=== PATIENT | female | born 1955 | race Caucasian/White ===

== ENCOUNTER 2016-04-01 09:53 | Inpatient (IN) | payer OTHER, MEDICAID ==
[~2016-04-01] VITALS: Ht 170.2 cm; Wt 126.0 kg
[~2016-04-01 09:53] MED LIST: ALBU2.5V3 NEB; ALBU8.5H3 INH; AMLO5TAB4 PO; ASPI-650 PO; ATOR20TA38 PO; BECL8.7A5 INH; BENA40TA41 PO; FENO160T9 PO; FLUT50DI INH; HYDR-3498 PO; HYDR25TA6 PO; HYDR26CR PR; INSU100C SC; INSU100I15 SC; LEVO750T25 PO; METF-388 PO; OMEP20CA9 PO; PARO-37 PO; RTATR NEB
[2016-04-01 10:05] VITALS: Ht 170.2 cm; Wt 126.0 kg
[2016-04-01] MEDS ORDERED: ONDANSETRON 4 MG INJ IV STA (10:24)
[2016-04-01] MEDS ORDERED: HYDROmorphONE 1 MG/ML SYG IV STA ×2 (10:24→12:13)
[2016-04-01] MEDS ORDERED: SOD CHLORIDE 0.9% 500 ML IV STA (10:24)
[2016-04-01 10:48] LABS: BASOPHILS % 0.3 % (0.0-2.0); EOSINOPHILS # 0.6 10^3/ul (0.0-0.5); EOSINOPHILS % 5.1 % (0.0-7.0); HEMATOCRIT 39.3 % (37.0-47.0); HEMOGLOBIN 12.8 g/dl (12.0-16.0); LYMPHOCYTES # 2.6 10^3/ul (0.8-2.9); LYMPHOCYTES % 21.9 % (15.0-51.0); MEAN CORPUSCULAR HGB CONC 32.7 g/dl (32.0-37.0); MEAN CORPUSCULAR VOLUME 82.6 fl (82.0-101.0); MEAN PLATELET VOLUME 7.5 fl (7.4-10.4); MONOCYTE # 0.6 10^3/ul (0.3-0.9); MONOCYTES % 4.9 % (0.0-11.0); NEUTROPHILS % 67.8 % (39.0-77.0); PLATELET COUNT 363 10^3/UL (140-440); RED BLOOD COUNT 4.75 10^6/ul (4.20-5.40); UNCORRECTED WBC 11.9 10^3/ul (4.8-10.8); WHITE BLOOD COUNT 11.9 10^3/ul (4.8-10.8)
[2016-04-01 10:56] LABS: ALBUMIN 4.3 g/dl (3.3-4.9)
[2016-04-01 10:57] LABS: POTASSIUM 4.6 mmol/L (3.5-5.1)
[2016-04-01 10:59] LABS: ALBUMIN/GLOBULIN RATIO 1.43; BILIRUBIN,INDIRECT 0.1 mg/dl (0-1.1); BILIRUBIN,TOTAL 0.1 mg/dl (0.2-1.3); CREATININE 0.85 mg/dl (0.44-1.00); TOTAL PROTEIN 7.3 g/dl (6.1-8.1)
[2016-04-01 11:00] LABS: CONDITION 1; LH ANALYZER COMMENTS 1
--- NOTE | 2016-04-01 11:15 | RADRPT ---
PROCEDURE: US Abdomen (right upper quadrant). CLINICAL INDICATION: Right upper quadrant pain. TECHNIQUE: Multiple real-time longitudinal and transverse images of the right upper quadrant of th e abdomen were acquired utilizing a curved array transducer. Images were reviewed on a high-resoluti on PACS workstation. COMPARISON: Correlation with CT from 05/22/2015. FINDINGS: The liver is normal in size and demonstrates diffusely increased echogenicity without focal mass or intrahepatic biliary dilatation. Small stones are present within the gallbladder. There is suggest ion of trace pericholecystic fluid. Focal thickening of the gallbladder wall with associated comet- tail artifact is consistent with adenomyomatosis. Questionable small gallbladder polyps are also pr esent. The cigar head stringer reports a positive sonographic Wells's sign. No intra or extrahepatic bili kiran dilatation is seen. The common bile duct measures 3.9 mm in maximal dimension. The pancreatic duct appears mildly prominent measuring 4 mm at the pancreatic body. No free fluid is identified. The right kidney measures 14.0 cm in length. There is normal echogenicity within the right kidney. There is no perinephric fluid collection. No hydronephrosis, mass, or calculus is seen. IMPRESSION: 1. Cholelithiasis with suggestion of pericholecystic fluid and reportedly positive sonographic Murp hy's sign. The findings may represent acute calculus cholecystitis in the correct clinical setting. If there is further concern, consider HIDA scan. 2. Nondependent echogenic foci within the gallbladder wall which may represent gallbladder polyp. 3. Focal gallbladder wall thickening with associated comet-tail artifact, consistent with adenomyom atosis. 4. Increased hepatic echogenicity, suggesting steatosis. 5. Mildly prominent pancreatic duct may be secondary to atrophy although obstruction cannot be ruled out. If there is further concern, consider MRCP. RPTAT: QQ .Carrillo Carmona MD, Date Time Electronically viewed and signed by .Carrillo Carmona MD, MD on 04/01/2016 11:14 .A/
--- NOTE | 2016-04-01 11:25 | ERA ---
ER Documentation Chief Complaint Date/Time DATE: 04/01/16 TIME: 1021 Chief Complaint AP X 5 days, SOB-COPD HPI 61-year-old female presents the emergency department complaining of epigastric abdominal pain 5 days. Patient states that she has had an epigastric and right upper quadrant abdominal pain for the last 5 days. She states the pain is acute in onset and non-provoked. It associated with nausea but no vomiting or diarrhea or urinary or gynecologic symptoms. She describes the pain is moderate to severe and is getting worse over the last few days. ROS All systems reviewed and are negative except as per history of present illness. Medications Home Meds Active Scripts Hydrocortisone* Rectal (Preparation H* Cream) 1% - 26 Gm Cream.gm., 1 APPLIC FL BID for 10 Days, TUB Prov:EVELINA MARTINES 05/22/15 Ipratropium [place]* (Atrovent*) 0.5 Mg/2.5 Ml Nebu, 0.5 MG NEB Q4H RESP THERAPY Y for SHORTNESS OF BREATH, #90 3 Refills Prov:EVELINA MARTINES 05/22/15 Levofloxacin* (Levaquin*) 750 Mg Tablet, 750 MG PO DAILY@06 for 5 Days, TAB Prov:EVELINA MARTINES 05/22/15 Hydrocodone Bit/Acetaminophen (Anexsia 5-325 Mg Tablet) 1 Tab Tab, 1 TAB PO Q6H Y for MODERATE PAIN LEVEL 4-6, #30 TAB Prov:EVELINA MARTINES 05/22/15 Reported Medications Beclomethasone Dip* (Qvar 80*) 7.3 Gm Inha, 2 PUFF INH BID, #1 INHALER 05/20/15 Fenofibrate, Micronized* (Lofibra*) 160 Mg Tablet, 160 MG PO DAILY, TAB 05/20/15 Insulin Lispro (Humalog) 100 U/Ml Cartridge, 16 UNITS SC WITH MEALS, EA 05/20/15 Insulin Glargine,Hum.rec.anlog (Lantus Solostar) 100 Units/Ml Pen, 30 UNITS SC BID 12/29/13 Omeprazole* (Prilosec*) 20 Mg Capsule.dr, 20 MG PO DAILY, CAP 12/29/13 Albuterol Sulfate* (Albuterol Sulfate* Neb) 0.083%-3 Ml Neb, 1 VIAL NEB Q4H, EA 12/29/13 Atorvastatin Calcium* (Atorvastatin Calcium*) 20 Mg Tablet, 20 MG PO HS, TAB 12/29/13 Albuterol Sulfate* (Proair HFA*) 8.5 Gm Hfa.aer.ad, 2 PUFF INH Q4-6HOURS, INH 12/29/13 Metformin Hcl* (Metformin Hcl*) 1,000 Mg Tablet, 1000 MG PO BID, TAB 12/29/13 Aspirin (Aspirin) 81 Mg Tablet, 81 MG PO DAILY 09/14/11 Amlodipine Besylate* (Norvasc*) 5 Mg Tablet, 5 MG PO DAILY 09/14/11 Benazepril Hcl* (Benazepril Hcl*) 40 Mg Tablet, 40 MG PO DAILY 09/14/11 Hydrochlorothiazide (Hydrochlorothiazide) 25 Mg Tablet, 25 MG PO DAILY 09/14/11 Paroxetine Hcl* (Paroxetine*) 20 Mg Tablet, 20 MG PO DAILY 09/14/11 Fluticasone Propionate (Flovent Diskus) 50 Mcg/Disk W/Dev Disk.w.dev, 2 SPRAY INH DAILY 09/14/11 Allergies Allergies: Coded Allergies: No Known Allergies (Verified Allergy, Unknown, 05/20/15) latex (Verified Adverse Reaction, Severe, HIVES, 05/20/15) PMhx/Soc Anesthesia Reaction: No Hx Neurological Disorder: No Hx Respiratory Disorders: Yes (COPD, JAN with CPAP) Hx Cardiac Disorders: Yes (htn ) Hx Psychiatric Problems: No Hx Miscellaneous Medical Probl: No Hx Alcohol Use: No Hx Substance Use: No Hx Tobacco Use: Yes Smoking Status: Current every day smoker FmHx Noncontributory for chief complaint Physical Exam Vitals Vital Signs Date Time Temp Pulse Resp B/P Pulse Ox O2 Delivery O2 Flow Rate FiO2 04/01/16 10:05 98.7 90 20 146/66 93 Physical Exam GENERAL: The patient is well developed and appropriate for usual state of health in no apparent distress HEENT: Pupils equal, round, and reactive to light. EOMI. There is no scleral icterus. NECK: C-spine is soft and supple, there is no meningismus. There is no cervical lymphadenopathy. LUNGS: Clear to auscultation bilaterally. There are no rales, wheezes or rhonchi. HEART: Regular rate and rhythm, no murmurs, clicks, rubs or gallops. ABDOMEN: Soft, obese. Patient is tender in the epigastric and right upper quadrant area with a Wells sign noted. EXTREMITIES: There is no peripheral cyanosis or edema. No focal swelling or erythema. NEURO: The patient moves all four extremities with 5/5 strength. Cranial nerves II - XII are intact. Normal gait. Alert and oriented SKIN: Patient has chronic wounds in both lower extremities without evidence of cellulitis HEME/LYMPHATIC: There is no evidence of excessive bruising or lymphedema. PSYCHIATRIC: The patient does not appear anxious or depressed. Result Diagram: 04/01/16 1030 04/01/16 1030 Results 24 hrs Laboratory Tests Test 04/01/16 10:30 Alanine Aminotransferase (ALT/SGPT) 29IU/L Albumin 4.3g/dl Albumin/Globulin Ratio 1.43 Alkaline Phosphatase 71IU/L Anion Gap 21 Aspartate Amino Transf (AST/SGOT) 23IU/L Basophils # 0.010^3/ul Basophils % 0.3% Blood Morphology Comment Blood Urea Nitrogen 17mg/dl Calcium Level 10.0mg/dl Carbon Dioxide Level 26mmol/L Chloride Level 96mmol/L Creatinine 0.85mg/dl Direct Bilirubin 0.00mg/dl Eosinophils # 0.610^3/ul Eosinophils % 5.1% Globulin 3.00g/dl Glucose Level 158mg/dl Hematocrit 39.3% Hemoglobin 12.8g/dl Indirect Bilirubin 0.1mg/dl Lipase 275U/L Lymphocytes # 2.610^3/ul Lymphocytes % 21.9% Mean Corpuscular Hemoglobin 27.0pg Mean Corpuscular Hemoglobin Concent 32.7g/dl Mean Corpuscular Volume 82.6fl Mean Platelet Volume 7.5fl Monocytes # 0.610^3/ul Monocytes % 4.9% Neutrophils # 8.010^3/ul Neutrophils % 67.8% Nucleated Red Blood Cells # 0.010^3/ul Nucleated Red Blood Cells % 0.0/100WBC Platelet Count 20054^3/UL Potassium Level 4.6mmol/L Red Blood Count 4.7510^6/ul Red Cell Distribution Width 18.0% Sodium Level 138mmol/L Total Bilirubin 0.1mg/dl Total Protein 7.3g/dl White Blood Count 11.910^3/ul Current Medications Medications (Trade) Dose Ordered Sig/Jose Guadalupe Route PRN Reason Start Time Stop Time Status Last Admin Dose Admin Sodium Chloride (NS) 500 ml @ 500 mls/hr Q1H STAT IV 04/01/16 10:24 04/01/16 11:23 04/01/16 11:13 Hydromorphone HCl (Dilaudid) 1 mg ONCE STAT IV 04/01/16 10:24 04/01/16 10:26 DC 04/01/16 10:35 Ondansetron HCl 4 mg 4 mg ONCE STAT IV 04/01/16 10:24 04/01/16 10:26 DC 04/01/16 10:35 Piperacillin Sod/ Tazobactam Sod (Zosyn 3.375gm/ 100 ml (Pmx)) 100 ml @ 200 mls/hr ONCE ONCE IVPB 04/01/16 11:30 04/01/16 11:59 Procedures/MDM Patient was taken to a room, seen and evaluated. Comfort measures were initiated. Diagnostic tests were ordered and reviewed. RADIOLOGY: reviewed with the radiologist CONSULTATION: hospitalist was notified for admission REEVALUATION: Patient's pain was adequately controlled. However, she continued to have a Wells sign on exam MEDICAL DECISION MAKING: Patient presents with abdominal pain of uncertain etiology. Differential diagnosis considered includes appendicitis, diverticulitis, cholecystitis and other intra-abdominal medical and surgical concerns. I have reviewed the patients lab studies and imaging as well as multiple examinations of the abdomen. At this time, patient shows evidence of acute cholecystitis. Given her diabetes and her age and her ongoing symptomatology, she will require admission to the hospital for IV antibiotics, pain control and consideration of surgical management. Departure Diagnosis: Primary Impression: Cholecystitis ROSA KHAN Apr 01, 2016 11:25
[2016-04-01] MEDS ORDERED: PIPER-TAZO 3.375 GM IV (PMX) 100 ML IVPB ONE (11:30)
[2016-04-01 12:26] LABS: ADD UMIC NO; URINE BILIRUBIN (Dip) NEGATIVE (NEGATIVE); URINE BLOOD (Dip) NEGATIVE (NEGATIVE); URINE COLOR LT. YELLOW (YELLOW); URINE GLUCOSE (Dip) NEGATIVE (NEGATIVE); URINE KETONES (Dip) NEGATIVE (NEGATIVE); URINE LEUKOCYTE ESTERASE (Dip) NEGATIVE (NEGATIVE); URINE NITRITE (Dip) NEGATIVE (NEGATIVE); URINE TOTAL PROTEIN (Dip) NEGATIVE (NEGATIVE); URINE UROBILINOGEN (Dip) 0.2 E.U./dL (0.1-1.0)
[2016-04-01] MEDS ORDERED: ALBUTEROL/IPRATROPIUM (NEB) 3 ML AMP HHN PRN (14:00)
[2016-04-01] MEDS ORDERED: hydrALAzine 20 MG INJ IV PRN (14:00)
[2016-04-01] MEDS ORDERED: ACETAMINOPHEN 325 MG TAB PO PRN (14:30)
[2016-04-01] MEDS ORDERED: DOCUSATE SODIUM 100 MG CAP PO PRN (14:30)
[2016-04-01] MEDS ORDERED: GLUCOSE GEL 15 GRAM TUBE BUCCAL PRN (14:30)
[2016-04-01] MEDS ORDERED: MAGNESIUM HYDROXIDE 30ML CUP PO PRN (14:30)
[2016-04-01] MEDS ORDERED: DEXTROSE 50% 50 ML SYRINGE IV PRN ×2 (14:30)
[2016-04-01] MEDS ORDERED: BISACODYL 10 MG SUPP PR PRN (14:30)
[2016-04-01] MEDS ORDERED: GLUCOSE GEL 15 GRAM TUBE PO PRN ×2 (14:30)
[2016-04-01] MEDS ORDERED: NACL 0.9% 3 ML SYG IV SCH (14:30)
[2016-04-01] MEDS ORDERED: GLUCAGON 1 MG INJ IM PRN (14:30)
[2016-04-01] MEDS ORDERED: ACETAMINOPHEN 650 MG SUPP PR PRN (14:30)
[2016-04-01] MEDS: ONDANSETRON 4 MG INJ IV PRN ×2 (14:32→21:55)
[2016-04-01] MEDS: SOD CHLORIDE 0.9% 1,000 ML IV SCH (14:44)
[2016-04-01 14:57] LABS: INR 0.88; PROTIME 11.9 Sec (12.2-14.2); PT RATIO 0.9
[2016-04-01 14:58] LABS: PARTIAL THROMBOPLASTIN TIME 26.3 Sec (25.0-35.0)
--- NOTE | 2016-04-01 16:00 | HP ---
DATE OF ADMISSION: 04/01/2016 PRIMARY CARE PHYSICIAN: Dr. Tico Gomez. CHIEF COMPLAINT ON ADMISSION: Abdominal pain. HISTORY OF PRESENT ILLNESS: This is a 61-year-old female with history of COPD, oxygen dependent at least 2 liters nasal cannula, ongoing tobacco use, 1 pack a day, sleep apnea on CPAP at home, morbid obesity, diabetes mellitus, insulin requiring, hypertension, major depressive disorder and chronic lower extremity diabetic ulcers, who presented to the emergency department today with complaint of a bdominal pain for the past 5 days. The patient reports that approximately a week ago she was starte d on Augmentin for her lower extremity diabetic wound. Four days into her treatment she started havi ng some abdominal pain and she discontinued the Augmentin. After discontinuation of the Augmentin t he pain actually kept worsening, mostly epigastric 8/10 radiating to the right upper quadrant all th e way to her right flank area. She reports that it is not exacerbated by food. She denies any naus ea or vomiting with the pain. She did not have any anorexia with it. She was able to tolerate p.o. She started taking Pepto-Bismol antacid and she reports that the pain seemed to have improved appr oximately 3 days ago, but was still persistent in this right upper quadrant epigastric area. Theref ore, she came to the emergency department for evaluation. In the emergency department her laborator y data showing a white blood cell count at 11.9 with a normal differential. She had ultrasound of t he abdomen that showed possible acute cholecystitis. This patient denies any fevers. She was start ed on Zosyn in the emergency department and Dr. Hester from general surgery was contacted. At this point, it is not clear that the patient is actually having acute cholecystitis versus episode of gas tritis and peptic ulcer disease; therefore, a HIDA scan will be ordered. She is noted to have diabe tic ulcerations lower extremity with no signs of severe cellulitis may be mild. She is already on Z osyn that will cover that area. I have evaluated her for preoperative evaluation and she does have comorbidities and risk factors that could relate to her being at least a moderate risk all this rela evan to her morbid obesity and COPD. She is oxygen dependent, currently. EKG, chest x-ray are pendi ng. She is otherwise hemodynamically stable and reports that her respiratory status is at baseline. I will keep her n.p.o. for now except for her medications until the HIDA scan is done. ALLERGIES: LATEX. PAST MEDICAL HISTORY: 1. Super morbid obesity. 2. Obstructive sleep apnea on CPAP at night and while sleeping. 3. COPD and chronic hypoxemia, oxygen dependent. 4. Diabetes mellitus, insulin requiring. 5. Hypertension. 6. Chronic diabetic wounds lower extremity. 7. Hyperlipidemia. 8. Gastroesophageal reflux disease. 9. Major depressive disorder. PAST SURGICAL HISTORY: 1. Status post total hysterectomy and bilateral salpingo-oophorectomy in 1993. 2. Previous C-sections. 3. Status post colonoscopy last year. The patient reports that no acute findings at that time. Th is was done outpatient. REVIEW OF SYSTEMS: As per HPI. The patient denies any dysuria or urinary frequency or hematuria. Her respiratory status again is at baseline. She denies chest pains or worsening respiratory status and she is still smoking. SOCIAL HISTORY: The patient lives at home with her daughter. She does still smoke up to 15 cigaret leyda a day almost a pack a day, which is more than last year per records, and she has been smoking fo r the past 40 years at least. She denies any history of alcohol use. OUTPATIENT MEDICATIONS: 1. ProAir HFA 2 puffs inhaled every 4-6 hours as needed for shortness of breath. 2. Albuterol nebulizer every 4 hours. 3. Ipratropium nebulizer every 4 hours as needed for shortness of breath. 4. Norvasc 5 mg p.o. daily. 5. Atorvastatin 20 mg p.o. at bedtime. 6. Benazepril 40 mg p.o. daily. 7. Fenofibrate 160 mg p.o. daily. 8. Aspirin 81 mg p.o. daily. 9. Paroxetine 20 mg p.o. daily. 10. Hydrochlorothiazide 25 mg p.o. daily. 11. Qvar 80 two puffs inhaled b.i.d. 12. Lantus 30 units subcutaneously b.i.d. 13. Insulin Lispro 16 units subcutaneously q.a.c. 14. Metformin 1000 mg p.o. b.i.d. 15. The patient did take a course of Augmentin up to 5 to 7 days ago. PHYSICAL EXAMINATION: VITAL SIGNS: Temperature is 98.6, heart rate of 90, respiratory rate 20, blood pressure 146/66, pat ient is satting 93% on 3 liters nasal cannula. GENERAL: She is alert and oriented x4. She is very pleasant. She is on oxygen currently, morbidly obese at baseline. HEENT: Pupils are equally round and reactive to light. Extraocular muscles are intact. Anicteric sclerae. NECK: No JVD, no thyromegaly noted. HEART: Regular rate and rhythm. No murmur, rubs or gallops. LUNGS: Clear to auscultation bilaterally. ABDOMEN: Soft. She does have tenderness to palpation, even to light palpation epigastric area and right upper quadrant. No pain on her left side of the abdomen or suprapubic area. Bowel sounds are present. EXTREMITIES: Bilateral lower extremity in the [place] area she does have some ulceration area which ar e weeping a little with mild cellulitic area around it. No clubbing or cyanosis noted. NEUROLOGIC: Grossly intact. The patient does use a walker for ambulation. LABORATORY DATA: White blood cell count is 11.9, hemoglobin 12.8, hematocrit 39.3, platelet count o f 364. Normal differential on the white blood cell count. Chemistry with a sodium of 130, potassiu m 4.6, chloride 96, bicarbonate 26, BUN 17, creatinine 0.85, glucose of 158, calcium 10.0, albumin 0 .1, AST 23, ALT 29, alkaline phosphatase of 71, total bilirubin 0.1, total protein 7.3, albumin 4.3, lipase is 275. INR is 0.88, PTT 26.3, PT 11.9. Urinalysis is negative. INR 0.88. PT 11.9, PTT 2 6.3. EKG is pending. RADIOLOGICAL DATA: 1. Chest x-ray is pending. 2. HIDA scan is pending. 3. Abdominal ultrasound is showing cholelithiasis with suggestion of pericholecystic fluid and repo rtedly a positive sonographic Wells's sign. Finding may represent acute calculus cholecystitis. I f further concern consider HIDA scan, nondependent echogenic foci within the gallbladder which may represent gallbladder polyp with focal gallbladder wall thickening with associated ____ artifact con sistent with adenomyomatosis. Increased hepatic echogenicity suggesting steatosis, mildly prominent pancreatic duct may be secondary to atrophy, although, obstruction cannot be ruled out. If there i s further concern, consider MRCP. ASSESSMENT AND PLAN: This is a 61-year-old female with: 1. Abdominal pain. She is being ruled out for acute cholecystitis. HIDA scan is pending. Dr. Milena yañez has been consulted. Lipase is negative. Depending on HIDA scan results will proceed with other form of imaging if need be an MRCP will be done. Continue Zosyn for now. 2. Lower extremity diabetic ulcers and wounds. Currently wound care will be ordered for local woun d care and the patient is on Zosyn that she can be continued on. If there is any sign of progressio n I will add vancomycin to her regimen, but for now just wound care and antibiotics that are coverin g the lower extremity ulcers as well as the suspicion for possible cholecystitis. 3. Chronic obstructive pulmonary disease with chronic hypoxemia, chronic oxygen dependency. Resume nebulizer treatments, DuoNeb every 8 hours as needed and every 4 p.r.n. Continue Qvar. The patien t is advised to use a CPAP machine at night and we will have also a chest x-ray done. 4. Obstructive sleep apnea. The patient is to resume her CPAP at night. A family member is to talon ng it in for her. 5. Diabetes mellitus. I have adjusted her insulin dosing since the patient is going to be n.p.o. a nd also sliding scale insulin for now. 6. Super morbid obesity. 7. Tobacco use. Nicotine patch has been ordered. The patient is again advised to quit smoking. T his would be the second time around now. 8. Major depressive disorder. Continue outpatient medication. 9. Hyperlipidemia. Check fasting lipid panel in the morning and continue Fenofibrate and Lipitor. 10. Known right upper pole 1.5 cm hemorrhagic cyst from before. This is chronic and apparently is followed by outpatient physician currently. 11. Prophylaxis: Sequential compression devices to lower extremity for DVT prophylaxis if tolerate d and Protonix for GI prophylaxis. DISPOSITION: HIDA scan is pending. Further imaging will be ordered as needed and additional consul ts as needed. Also follow up on chest x-ray and EKG, again for surgical procedures the patient is a moderate risk at least. Dictated By: EVELINA MANZO/LIAM Conf#: [id number] DID#: [id number]
--- NOTE | 2016-04-01 16:37 | RADRPT ---
PROCEDURE: XR Chest. CLINICAL INDICATION: Preoperative. TECHNIQUE: Single frontal view. COMPARISON: 05/20/2015. FINDINGS: The lungs are clear. The heart size is normal. There is no pleural effusion. There is no pneumothorax. IMPRESSION: 1. Normal chest radiograph. RPTAT: QQ .Emmanuel Yip MD, MD Date Time Electronically viewed and signed by .Emmanuel Yip MD, on 04/01/2016 16:36 .R/
[2016-04-01] MEDS: INSULIN ASPART [NOVOLOG] 3 ML PEN SC SCH ×2 (17:00→21:00)
--- NOTE | 2016-04-01 17:08 | RADRPT ---
Vent Rate: 68 bpm RR Interval: 0 msec RI Interval: 178 msec QRS Duration: 108 msec QT Interval: 414 msec QTC Interval: 440 msec P-R-T [place]: 68 - 64 - 80 degrees Normal sinus rhythm Normal ECG Electronically Signed By: Jeffery Castillo [id number]
[2016-04-01] MEDS: MOMETASONE 0.24 GM INHALER INH SCH ×2 (17:28→21:50)
[2016-04-01] MEDS: NICOTINE (21 MG/24 HR) PATCH TRANSDERM SCH (17:31)
[2016-04-01] MEDS: ALBUTEROL/IPRATROPIUM (NEB) 3 ML AMP HHN SCH ×2 (17:46→23:32)
[2016-04-01 21:35] VITALS: BP 127/60; PULSE 79; RESP 18
[2016-04-01] MEDS: ATORVASTATIN 20 MG TAB PO SCH (21:50)
[2016-04-01] MEDS: PIPER-TAZO 3.375 GM IV (PMX) 100 ML IVPB SCH (21:52)
[2016-04-01] MEDS: HYDROmorphONE 1 MG/ML SYG IV PRN (21:54)
[2016-04-01] MEDS: DIPHENHYDRAMINE 50 MG INJ IV PRN (21:55)
--- NOTE | 2016-04-01 22:00 | RADRPT ---
PROCEDURE: HIDA scan CLINICAL INDICATION: 61 -year-old patient with abdominal pain. TECHNIQUE: Following the intravenous injection of 8.7 mCi of Tc-99m mebrofenin, multiple images of the abdomen were obtained up to 90 minutes post injection. COMPARISON: No prior studies. FINDINGS: The liver is promptly visualized, demonstrates homogeneous distribution of radionuclide. There is visualization of the common bile duct and gallbladder within normal time. Multiple images of the abdomen obtained up to 90 minutes post injection do not reveal gastrointestin al activity. IMPRESSION: 1. No evidence of a cystic duct obstruction. 2. Nonvisualization of gastrointestinal activity up to 90 minutes post injection; delayed images to follow. RPTAT: QQ .Jewels Muir MD, Date Time Electronically viewed and signed by .Jewels Muir MD, on 04/01/2016 22:00 .L/
[2016-04-01] MEDS: INSULIN GLARGINE [LANtus] 3 ML PEN SC SCH (22:02)
--- NOTE | 2016-04-01 22:54 | CONS ---
DATE OF ADMISSION: 04/01/2016 DATE OF CONSULTATION: 04/01/2016 HISTORY OF PRESENT ILLNESS: Ms. Suero is a 61-year-old female who has a 5-day history of epiga stric and right upper quadrant pain. Pain started about 5 days ago when she started Augmentin for a diabetic foot ulcer. Soon after, she developed epigastric, right upper quadrant pain. She denies nausea, vomiting. She denies fevers, chills, or night sweats. There was concerning for acute justina cystitis, and I was called for consultation. PAST MEDICAL HISTORY: Super morbid obesity, obstructive sleep apnea on CPAP, COPD, chronic hypoxemi a, insulin-dependent diabetes, hypertension, chronic diabetic wounds, hyperlipidemia, GERD, major de pressive disorder. PAST SURGICAL HISTORY: [facility] in 1993, C-sections. ALLERGIES: LATEX. MEDICATIONS: 1. ProAir. 2. Albuterol. 3. Ipratropium. 4. Norvasc. 5. Atorvastatin. 6. Benazepril. 7. Fenofibrate. 8. Aspirin. 9. Paroxetine. 10. Hydrochlorothiazide. 11. Humalog. 12. Lantus insulin. 13. Metformin. SOCIAL HISTORY: She lives with her daughter. She smokes about 15 cigarettes a day. PHYSICAL EXAMINATION: GENERAL: She is a morbidly obese female in no apparent distress, afebrile. VITAL SIGNS: Stable. CHEST: Clear to auscultation bilaterally. HEART: Regular rhythm. ABDOMEN: Protuberant and tender to the epigastrium and right upper quadrant. IMAGING: Ultrasound reveals cholelithiasis with suggestion of pericholecystic fluid and positive so nographic Wells's sign. LABORATORY DATA: Reveal a white count of 12, hematocrit of 39, and platelets of 363. Sodium 138, p otassium 3.6, chloride 96, CO2 of 26, BUN and creatinine 17 and 0.8, and glucose 158. LFTs are with in normal limits. ASSESSMENT AND PLAN: Ms. Suero is a 61-year-old female with likely acute cholecystitis. 1. A HIDA scan is pending. Will review results in the morning. 2. The patient is high surgical risk. Would like to treat the patient conservatively with IV antib iotics and, hopefully, will respond and then would recommend outpatient laparoscopic cholecystectomy . 3. However, if fails to respond or worsens, then she needs an acute cholecystectomy on this admissi on, but as I stated, the patient is quite high risk for this type of procedure. Dictated By: PRISCILLA POSEY/NTS Conf#: [id number] DID#: [id number] CC: EVELINA MARTINES MD;*EndCC*
[2016-04-02] MEDS: SOD CHLORIDE 0.9% 1,000 ML IV SCH ×4 (00:04→21:17)
[2016-04-02] MEDS: INSULIN ASPART [NOVOLOG] 3 ML PEN SC SCH ×6 (01:00→20:55)
[2016-04-02] MEDS: ONDANSETRON 4 MG INJ IV PRN ×3 (05:13→21:43)
[2016-04-02] MEDS: HYDROmorphONE 1 MG/ML SYG IV PRN ×3 (05:13→21:43)
[2016-04-02] MEDS: PIPER-TAZO 3.375 GM IV (PMX) 100 ML IVPB SCH ×3 (05:14→21:17)
[2016-04-02] MEDS ORDERED: PANTOPRAZOLE 40 MG INJ IV SCH (06:00)
[2016-04-02 06:32] LABS: BASOPHILS % 0.5 % (0.0-2.0); EOSINOPHILS # 0.6 10^3/ul (0.0-0.5); EOSINOPHILS % 6.6 % (0.0-7.0); HEMATOCRIT 36.7 % (37.0-47.0); HEMOGLOBIN 12.1 g/dl (12.0-16.0); LYMPHOCYTES # 2.7 10^3/ul (0.8-2.9); LYMPHOCYTES % 28.5 % (15.0-51.0); MEAN CORPUSCULAR HEMOGLOBIN 27.9 pg (29.0-33.0); MEAN CORPUSCULAR HGB CONC 33.1 g/dl (32.0-37.0); MEAN CORPUSCULAR VOLUME 84.2 fl (82.0-101.0); MEAN PLATELET VOLUME 7.3 fl (7.4-10.4); MONOCYTE # 0.6 10^3/ul (0.3-0.9); NEUTROPHIL # 5.5 10^3/ul (1.6-7.5); NEUTROPHILS % 58.4 % (39.0-77.0); PLATELET COUNT 343 10^3/UL (140-440); RED BLOOD COUNT 4.36 10^6/ul (4.20-5.40); RED CELL DISTRIBUTION WIDTH 17.7 % (11.5-14.5); UNCORRECTED WBC 9.4 10^3/ul (4.8-10.8); WHITE BLOOD COUNT 9.4 10^3/ul (4.8-10.8)
[2016-04-02 06:38] LABS: CONDITION 1; LH ANALYZER COMMENTS 1
[2016-04-02 06:40] LABS: POTASSIUM 4.9 mmol/L (3.5-5.1)
[2016-04-02 06:42] LABS: ALBUMIN/GLOBULIN RATIO 1.25; BILIRUBIN,INDIRECT 0.2 mg/dl (0-1.1); BILIRUBIN,TOTAL 0.2 mg/dl (0.2-1.3); CREATININE 0.94 mg/dl (0.44-1.00); TOTAL PROTEIN 7.2 g/dl (6.1-8.1)
[2016-04-02 06:43] LABS: CALCIUM 9.3 mg/dl (8.4-10.2); MAGNESIUM 1.9 mg/dl (1.7-2.5); PHOSPHORUS 4.8 mg/dl (2.5-4.9)
[2016-04-02 06:44] LABS: CHOL/HDL RATIO 5.7 RATIO
[2016-04-02 07:46] VITALS: BP 113/58; RESP 20
[2016-04-02] MEDS: DIPHENHYDRAMINE 50 MG INJ IV PRN ×2 (08:16→21:43)
[2016-04-02] MEDS: FENOFIBRATE 145 MG TAB PO SCH (08:17)
[2016-04-02] MEDS: AMLODIPINE 5 MG TAB PO SCH (08:17)
[2016-04-02] MEDS: PAROXETINE 20 MG TAB PO SCH (08:17)
[2016-04-02] MEDS: BENAZEPRIL 40 MG TAB PO SCH (08:17)
[2016-04-02] MEDS: NICOTINE (21 MG/24 HR) PATCH TRANSDERM SCH (08:18)
[2016-04-02] MEDS: MOMETASONE 0.24 GM INHALER INH SCH ×2 (08:18→20:53)
[2016-04-02] MEDS: ALBUTEROL/IPRATROPIUM (NEB) 3 ML AMP HHN SCH ×3 (09:12→23:00)
--- NOTE | 2016-04-02 10:31 | PN ---
Date/Time of Note Date/Time of Note DATE: 04/02/16 TIME: 10:16 Assessment/Plan VTE Prophylaxis VTE Prophylaxis Intervention: SCD's Lines/Catheters IV [facility]ter Type (from [facility]): Peripheral IV Urinary Cath still in place: No Assessment/Plan Assessment/Plan 61-year-old female with: 1. Abdominal pain. HIDA scan negative for cholecystitis, appreciate Dr. Hester recommendations, no surgical intervention indicated MRCP pending PPI bid and GI c/s as needed for ? EGD if MRCP negative Lipase wnl Continue Zosyn for now. 2. Lower extremity diabetic ulcers and wounds. Continue wound care and on Zosyn currently 3. Chronic obstructive pulmonary disease with chronic hypoxemia, chronic oxygen dependency. CXR stable Continue nebulizer treatments, DuoNeb every 8 hours as needed and every 4 p.r.n. Continue Qvar. Using CPAP machine. 4. Obstructive sleep apnea. CPAP at night. 5. Diabetes mellitus. once back on diet will resume outpatient regimen, continue Lantus and sliding scale insulin. 6. Super morbid obesity. 7. Tobacco use. Nicotine patch. The patient is again advised to quit smoking. 8. Major depressive disorder. Continue outpatient medication. 9. Hyperlipidemia. Continue Fenofibrate and Lipitor. 10. Known right upper pole 1.5 cm hemorrhagic cyst from before. This is chronic and apparently is followed by outpatient physician currently. Prophylaxis: Sequential compression devices to lower extremity for DVT prophylaxis if tolerated and Protonix for GI prophylaxis. DISPOSITION: MRCP pending. Subjective 24 Hr Interval Summary Free Text/Dictation Patient still having pain Epigastric RUQ areas HIDA scan negative and MRCP pending WBC wnl and otherwise at baseline Exam/Review of Systems Vital Signs Vitals Vital Signs Date Time Temp Pulse Resp B/P Pulse Ox O2 Delivery O2 Flow Rate FiO2 04/02/16 09:13 3.0 32 04/02/16 09:13 88 20 Nasal Cannula 04/02/16 07:49 98.2 04/02/16 07:46 113/58 96 Intake and Output 04/01/16 04/01/16 04/02/16 15:00 23:00 07:00 Intake Total 350 ml 950 ml Balance 350 ml 950 ml Exam Constitutional: alert, obese, oriented, well developed Respiratory: clear to auscultation, normal air movement Cardiovascular: nl pulses, regular rate and rhythm Gastrointestinal: soft, tender (epigastric/RUQ ) Musculoskeletal: other (no edema, clubbing or cyanosis ) Extremities: normal pulses, other (B/L LE DM ulcerations stable ) Neurological: BANK CONSULTANT II-XII intact, nl mental status, nl speech, nl strength Results Result Diagram: 04/02/16 0509 04/02/16 0505 Results 24 hrs Laboratory Tests Test 04/01/16 10:30 04/01/16 12:15 04/01/16 14:28 04/01/16 14:31 Alanine Aminotransferase (ALT/SGPT) 29 Albumin 4.3 Albumin/Globulin Ratio 1.43 Alkaline Phosphatase 71 Anion Gap 21 H Aspartate Amino Transf (AST/SGOT) 23 Basophils # 0.0 Basophils % 0.3 Blood Morphology Comment Blood Urea Nitrogen 17 Calcium Level 10.0 Carbon Dioxide Level 26 Chloride Level 96 L Creatinine 0.85 Direct Bilirubin 0.00 Eosinophils # 0.6 H Eosinophils % 5.1 Globulin 3.00 Glucose Level 158 Hematocrit 39.3 Hemoglobin 12.8 Indirect Bilirubin 0.1 Lipase 275 Lymphocytes # 2.6 Lymphocytes % 21.9 Mean Corpuscular Hemoglobin 27.0 L Mean Corpuscular Hemoglobin Concent 32.7 Mean Corpuscular Volume 82.6 Mean Platelet Volume 7.5 Monocytes # 0.6 Monocytes % 4.9 Neutrophils # 8.0 H Neutrophils % 67.8 Nucleated Red Blood Cells # 0.0 Nucleated Red Blood Cells % 0.0 Platelet Count 363 # Potassium Level 4.6 Red Blood Count 4.75 # Red Cell Distribution Width 18.0 H Sodium Level 138 Total Bilirubin 0.1 L Total Protein 7.3 White Blood Count 11.9 #H Urine Bilirubin NEGATIVE Urine Clarity CLEAR Urine Color LT. YELLOW Urine Glucose NEGATIVE Urine Hemoglobin NEGATIVE Urine Ketones NEGATIVE Urine Leukocyte Esterase NEGATIVE Urine Nitrite NEGATIVE Urine Specific [place] <=1.005 L Urine Total Protein NEGATIVE Urine Urobilinogen 0.2 E.U./dL Urine pH 6.0 Activated Partial Thromboplast Time 26.3 INR International Normalized Ratio 0.88 Prothrombin Time 11.9 L Prothrombin Time Ratio 0.9 Bedside Glucose 102 Test 04/01/16 17:33 04/01/16 21:41 04/02/16 01:10 04/02/16 05:05 Bedside Glucose 100 96 100 Alanine Aminotransferase (ALT/SGPT) 31 Albumin 4.0 Albumin/Globulin Ratio 1.25 Alkaline Phosphatase 63 Anion Gap 19 H Aspartate Amino Transf (AST/SGOT) 39 Blood Urea Nitrogen 16 Calcium Level 9.3 Carbon Dioxide Level 29 Chloride Level 101 Cholesterol Level 154 Cholesterol/HDL Ratio 5.7 Creatinine 0.94 Direct Bilirubin 0.00 Globulin 3.20 Glucose Level 95 # HDL Cholesterol 27 L Indirect Bilirubin 0.2 LDL Cholesterol, Calculated 79 Magnesium Level 1.9 Phosphorus Level 4.8 Potassium Level 4.9 Sodium Level 144 Total Bilirubin 0.2 Total Protein 7.2 Triglycerides Level 238 H Test 04/02/16 05:09 04/02/16 05:11 04/02/16 08:28 Basophils # 0.0 Basophils % 0.5 Blood Morphology Comment Eosinophils # 0.6 H Eosinophils % 6.6 Hematocrit 36.7 L Hemoglobin 12.1 Hemoglobin A1c 7.4 H Lymphocytes # 2.7 Lymphocytes % 28.5 Mean Corpuscular Hemoglobin 27.9 L Mean Corpuscular Hemoglobin Concent 33.1 Mean Corpuscular Volume 84.2 Mean Platelet Volume 7.3 L Monocytes # 0.6 Monocytes % 6.0 Neutrophils # 5.5 Neutrophils % 58.4 Nucleated Red Blood Cells # 0.0 Nucleated Red Blood Cells % 0.0 Platelet Count 343 Red Blood Count 4.36 Red Cell Distribution Width 17.7 H White Blood Count 9.4 # Bedside Glucose 108 111 Medications Medications Current Medications Amlodipine Besylate (Norvasc) 5 mg DAILY PO Last administered on 04/02/16 08:17 ; Admin Dose 5 MG; Start 04/02/16 at 09:00 Atorvastatin Calcium (Lipitor) 20 mg HS PO Last administered on 04/01/16 21:50 ; Admin Dose 20 MG; Start 04/01/16 at 21:00 Benazepril HCl (Lotensin) 40 mg DAILY PO Last administered on 04/02/16 08:17; Admin Dose 40 MG; Start 04/02/16 at 09:00 Insulin Glargine (Lantus) 30 unit QHS SC Last administered on 04/01/16 22:02; Admin Dose 30 UNIT; Start 04/01/16 at 21:00 Paroxetine HCl (Paxil) 20 mg DAILY PO Last administered on 04/02/16 08:17; Admin Dose 20 MG; Start 04/02/16 at 09:00 Mometasone Furoate (Asmanex) 1 puff BID INH Last administered on 04/02/16 08:18 ; Admin Dose 1 PUFF; Start 04/01/16 at 14:30 Fenofibrate (Tricor) 145 mg DAILY PO Last administered on 04/02/16 08:17; Admin Dose 145 MG; Start 04/02/16 at 09:00 Insulin Aspart (Novolog Insulin Pen) NOVOLOG *MODERATE* ALGORI... Q4 SC ; Start 04/01/16 at 17:00 Hydralazine HCl 10 mg 10 mg Q8H PRN IV ELEVATED BLOOD PRESSURE; Start 04/01/16 at 14:00 Sodium Chloride (NS) 1,000 ml @ 100 mls/hr Q10H IV Last administered on 04:26; Admin Dose 100 MLS/HR; Start 04/01/16 at 14:04 Ondansetron HCl (Zofran Inj) 4 mg Q6H PRN IV NAUSEA AND/OR VOMITING Last administered on 04/02/16 05:13; Admin Dose 4 MG; Start 04/01/16 at 14:30 Acetaminophen (Tylenol Tab) 650 mg Q6H PRN PO PAIN LEVEL 1-3 OR FEVER; Start at 14:30 Acetaminophen (Tylenol Supp) 650 mg Q6H PRN [place] PAIN LEVEL 1-3 OR FEVER; Start 04/01/16 at 14:30 Hydromorphone HCl (Dilaudid) 0.5 mg Q4H PRN IV SEVERE PAIN LEVEL 7-10 Last administered on 04/02/16 05:13; Admin Dose 0.5 MG; Start 04/01/16 at 14:30 Docusate Sodium (Colace) 100 mg Q12H PRN PO CONSTIPATION; Start 04/01/16 at 14: 30 Magnesium Hydroxide (Milk Of Mag) 30 ml DAILY PRN PO CONSTIPATION; Start at 14:30 Bisacodyl (Dulcolax Supp) 10 mg DAILY PRN [place] CONSTIPATION; Start 04/01/16 at 14: 30 Pantoprazole 40 mg 40 mg DAILY@06 IV Last administered on 04/02/16 05:13; Admin Dose 40 MG; Start 04/02/16 at 06:00 Piperacillin Sod/ Tazobactam Sod (Zosyn 3.375gm/ 100 ml (Pmx)) 100 ml @ 200 mls /hr Q8 IVPB Last administered on 04/02/16 05:14; Admin Dose 200 MLS/HR; Start 04/01/16 at 22:00 Miscellaneous Information 1 ea NOTE XX ; Start 04/01/16 at 14:30 Glucose (Glutose) 15 gm Q15M PRN PO DECREASED GLUCOSE; Start 04/01/16 at 14:30 Glucose (Glutose) 22.5 gm Q15M PRN PO DECREASED GLUCOSE; Start 04/01/16 at 14:30 Dextrose (D50w Syringe) 25 ml Q15M PRN IV DECREASED GLUCOSE; Start 04/01/16 at 14:30 Dextrose (D50w Syringe) 50 ml Q15M PRN IV DECREASED GLUCOSE; Start 04/01/16 at 14:30 Glucagon (Glucagen) 1 mg Q15M PRN IM DECREASED GLUCOSE; Start 04/01/16 at 14:30 Glucose (Glutose) 15 gm Q15M PRN BUCCAL DECREASED GLUCOSE; Start 04/01/16 at 14: 30 Nicotine (Nicoderm 21 Mg/ 24hr) 1 patch DAILY TRANSDERM Last administered on 08:18; Admin Dose 1 PATCH; Start 04/01/16 at 15:00 Diphenhydramine HCl (Benadryl) 12.5 mg Q8 PRN IV PRURITUS Last administered on 04/02/16 08:16; Admin Dose 12.5 MG; Start 04/01/16 at 18:30 EVELINA MARTINES Apr 02, 2016 10:28
[2016-04-02] MEDS ORDERED: LORAZEPAM 2 MG INJ IV ONE (11:00)
--- NOTE | 2016-04-02 15:28 | RADRPT ---
PROCEDURE: MRCP. CLINICAL INDICATION: Right upper quadrant pain. Evaluate for choledocholithiasis. TECHNIQUE: MRCP was performed on the a high-resolution, high Nirali field strength scanner. Patien russell was examined without contrast. 3-D coronal rotating MIP images of the biliary tree are available for review. COMPARISON: CT abdomen and pelvis 05/22/2015 FINDINGS: Gallbladder remarkable for small gallstones. The biliary tree is not dilated. No intrahepatic nor e xtrahepatic biliary dilatation is present. No filling defect or choledocholithiasis is seen. There i s no stricture or obstruction. The pancreatic duct, as visualized, is equally unremarkable. There is approximately 1.5 cm exophytic T2 hypointense lesion in the upper pole right kidney most consistent with a hemorrhagic/proteinaceous cyst, not significantly change in size. There is approximately 2. 2 cm mildly complex cyst in the spleen, unchanged. IMPRESSION: 1. Cholelithiasis without evidence of acute cholecystitis. 2. No intrahepatic or extrahepatic biliary ductal dilatation. No choledocholithiasis. 3. Unchanged small exophytic hemorrhagic/proteinaceous cyst in the upper pole right kidney. 4. Unchanged small cystic structure in the spleen. RPTAT: BB .Rebel Blackmon MD, MD Date Time Electronically viewed and signed by .Rebel Blackmon MD, on 04/02/2016 15:27 .O/
[2016-04-02 19:01] VITALS: BP 146/65; RESP 20
[2016-04-02] MEDS: ATORVASTATIN 20 MG TAB PO SCH (20:53)
[2016-04-02] MEDS: PANTOPRAZOLE 40 MG INJ IV SCH (20:53)
[2016-04-02] MEDS: INSULIN GLARGINE [LANtus] 3 ML PEN SC SCH (20:55)
[2016-04-03] VITALS (10 sets, daily range): BP systolic 114–151; BP diastolic 56–70; PULSE 80–86; RESP 18–22
[2016-04-03] MEDS: INSULIN ASPART [NOVOLOG] 3 ML PEN SC SCH ×6 (01:00→20:53)
[2016-04-03] MEDS: HYDROmorphONE 1 MG/ML SYG IV PRN ×4 (03:52→19:55)
[2016-04-03] MEDS: ONDANSETRON 4 MG INJ IV PRN ×2 (03:52→20:46)
[2016-04-03] MEDS: PIPER-TAZO 3.375 GM IV (PMX) 100 ML IVPB SCH ×3 (05:22→21:21)
[2016-04-03 05:56] LABS: BASOPHIL # 0.1 10^3/ul (0.0-0.1); BASOPHILS % 0.6 % (0.0-2.0); EOSINOPHILS # 0.5 10^3/ul (0.0-0.5); EOSINOPHILS % 6.4 % (0.0-7.0); HEMATOCRIT 34.2 % (37.0-47.0); HEMOGLOBIN 11.4 g/dl (12.0-16.0); LYMPHOCYTES # 2.4 10^3/ul (0.8-2.9); LYMPHOCYTES % 28.7 % (15.0-51.0); MEAN CORPUSCULAR HEMOGLOBIN 27.9 pg (29.0-33.0); MEAN CORPUSCULAR HGB CONC 33.2 g/dl (32.0-37.0); MEAN CORPUSCULAR VOLUME 84.1 fl (82.0-101.0); MEAN PLATELET VOLUME 7.4 fl (7.4-10.4); MONOCYTE # 0.4 10^3/ul (0.3-0.9); MONOCYTES % 4.7 % (0.0-11.0); NEUTROPHIL # 5.1 10^3/ul (1.6-7.5); NEUTROPHILS % 59.6 % (39.0-77.0); PLATELET COUNT 326 10^3/UL (140-440); RED BLOOD COUNT 4.07 10^6/ul (4.20-5.40); RED CELL DISTRIBUTION WIDTH 18.1 % (11.5-14.5); UNCORRECTED WBC 8.5 10^3/ul (4.8-10.8); WHITE BLOOD COUNT 8.5 10^3/ul (4.8-10.8)
[2016-04-03 06:00] LABS: CONDITION 1; LH ANALYZER COMMENTS 1
[2016-04-03 06:01] LABS: ALBUMIN 3.9 g/dl (3.3-4.9); POTASSIUM 4.9 mmol/L (3.5-5.1)
[2016-04-03 06:04] LABS: ALBUMIN/GLOBULIN RATIO 1.3; BILIRUBIN,INDIRECT 0.1 mg/dl (0-1.1); BILIRUBIN,TOTAL 0.1 mg/dl (0.2-1.3); CALCIUM 8.9 mg/dl (8.4-10.2); CREATININE 1.01 mg/dl (0.44-1.00); TOTAL PROTEIN 6.9 g/dl (6.1-8.1)
[2016-04-03] MEDS: SOD CHLORIDE 0.9% 1,000 ML IV SCH ×3 (06:04→23:50)
[2016-04-03 06:09] LABS: MAGNESIUM 1.9 mg/dl (1.7-2.5)
[2016-04-03] MEDS: ALBUTEROL/IPRATROPIUM (NEB) 3 ML AMP HHN SCH ×3 (09:05→23:54)
[2016-04-03] MEDS: MOMETASONE 0.24 GM INHALER INH SCH ×2 (09:25→20:46)
[2016-04-03] MEDS: NICOTINE (21 MG/24 HR) PATCH TRANSDERM SCH (09:25)
[2016-04-03] MEDS: PANTOPRAZOLE 40 MG INJ IV SCH ×2 (09:25→20:46)
[2016-04-03] MEDS: FENOFIBRATE 145 MG TAB PO SCH (09:28)
[2016-04-03] MEDS: PAROXETINE 20 MG TAB PO SCH (09:29)
[2016-04-03] MEDS: AMLODIPINE 5 MG TAB PO SCH (09:29)
[2016-04-03] MEDS: BENAZEPRIL 40 MG TAB PO SCH (09:29)
--- NOTE | 2016-04-03 12:08 | PN ---
Date/Time of Note Date/Time of Note DATE: 04/03/16 TIME: 12:05 Assessment/Plan VTE Prophylaxis VTE Prophylaxis Intervention: SCD's Lines/Catheters IV Catheter Type (from Nrs): Peripheral IV Urinary Cath still in place: No Assessment/Plan Assessment/Plan 61-year-old female with: 1. Abdominal pain. HIDA scan negative for cholecystitis, appreciate Dr. Hester recommendations, no surgical intervention indicated MRCP wnl PPI bid and GI c/s with Dr Eagle with planned EGD today, NPO for now Lipase wnl Continue Zosyn for now. 2. Lower extremity diabetic ulcers and wounds. Continue wound care and on Zosyn currently 3. Chronic obstructive pulmonary disease with chronic hypoxemia, chronic oxygen dependency. CXR stable Continue nebulizer treatments, DuoNeb every 8 hours as needed and every 4 p.r.n. Continue Qvar. Using CPAP machine. Ok to proceed with EGD today and will monitor respiratory status robbie procedure. 4. Obstructive sleep apnea. CPAP at night. 5. Diabetes mellitus. once back on diet will resume outpatient regimen, continue Lantus and sliding scale insulin. 6. Super morbid obesity. 7. Tobacco use. Nicotine patch. The patient is again advised to quit smoking. 8. Major depressive disorder. Continue outpatient medication. 9. Hyperlipidemia. Continue Fenofibrate and Lipitor. 10. Known right upper pole 1.5 cm hemorrhagic cyst from before. This is chronic and apparently is followed by outpatient physician currently. Prophylaxis: Sequential compression devices to lower extremity for DVT prophylaxis if tolerated and Protonix for GI prophylaxis. DISPOSITION: EGD today Subjective 24 Hr Interval Summary Free Text/Dictation Patient doing OK now No complaints except for Abdo pain still up to 810 Appreciate GI recommendations and plan for EGD after 5 pm today Exam/Review of Systems Vital Signs Vitals Vital Signs Date Time Temp Pulse Resp B/P Pulse Ox O2 Delivery O2 Flow Rate FiO2 04/03/16 09:08 98 3.0 04/03/16 09:07 76 18 Nasal Cannula 04/03/16 07:30 97.9 114/58 04/02/16 17:23 32 Intake and Output 04/02/16 04/02/16 04/03/16 15:00 23:00 07:00 Intake Total 100 ml 1400 ml 1150 ml Balance 100 ml 1400 ml 1150 ml Exam Constitutional: alert, obese, oriented Respiratory: clear to auscultation, normal air movement Cardiovascular: nl pulses, regular rate and rhythm Gastrointestinal: non-tender, soft Musculoskeletal: other (LE superficial wounds stable and continue wound care ) Extremities: normal pulses Neurological: ARTIST MANAGER II-XII intact, nl mental status, nl speech, nl strength Results Result Diagram: 04/03/16 0420 04/03/16 0420 Results 24 hrs Laboratory Tests Test 04/02/16 13:50 04/02/16 17:54 04/02/16 20:37 04/03/16 00:55 Bedside Glucose 96 172 179 108 Test 04/03/16 04:20 04/03/16 04:34 04/03/16 08:28 Alanine Aminotransferase (ALT/SGPT) 33 Albumin 3.9 Albumin/Globulin Ratio 1.30 Alkaline Phosphatase 61 Amylase Level 108 Anion Gap 15 Aspartate Amino Transf (AST/SGOT) 31 Basophils # 0.1 Basophils % 0.6 Blood Morphology Comment Blood Urea Nitrogen 13 Calcium Level 8.9 Carbon Dioxide Level 30 Chloride Level 104 Creatinine 1.01 H Direct Bilirubin 0.00 Eosinophils # 0.5 Eosinophils % 6.4 Globulin 3.00 Glucose Level 106 Hematocrit 34.2 L Hemoglobin 11.4 L Indirect Bilirubin 0.1 Lipase 273 Lymphocytes # 2.4 Lymphocytes % 28.7 Magnesium Level 1.9 Mean Corpuscular Hemoglobin 27.9 L Mean Corpuscular Hemoglobin Concent 33.2 Mean Corpuscular Volume 84.1 Mean Platelet Volume 7.4 Monocytes # 0.4 Monocytes % 4.7 Neutrophils # 5.1 Neutrophils % 59.6 Nucleated Red Blood Cells # 0.0 Nucleated Red Blood Cells % 0.0 Phosphorus Level 4.0 Platelet Count 326 Potassium Level 4.9 Red Blood Count 4.07 L Red Cell Distribution Width 18.1 H Sodium Level 144 Total Bilirubin 0.1 L Total Protein 6.9 White Blood Count 8.5 Bedside Glucose 121 129 Medications Medications Current Medications Amlodipine Besylate (Norvasc) 5 mg DAILY PO Last administered on 04/03/16 09:29 ; Admin Dose 5 MG; Start 04/02/16 at 09:00 Atorvastatin Calcium (Lipitor) 20 mg HS PO Last administered on 04/02/16 20:53 ; Admin Dose 20 MG; Start 04/01/16 at 21:00 Benazepril HCl (Lotensin) 40 mg DAILY PO Last administered on 04/03/16 09:29; Admin Dose 40 MG; Start 04/02/16 at 09:00 Insulin Glargine (Lantus) 30 unit QHS SC Last administered on 04/02/16 20:55; Admin Dose 30 UNIT; Start 04/01/16 at 21:00 Paroxetine HCl (Paxil) 20 mg DAILY PO Last administered on 04/03/16 09:29; Admin Dose 20 MG; Start 04/02/16 at 09:00 Mometasone Furoate (Asmanex) 1 puff BID INH Last administered on 04/03/16 09:25 ; Admin Dose 1 PUFF; Start 04/01/16 at 14:30 Fenofibrate (Tricor) 145 mg DAILY PO Last administered on 04/03/16 09:28; Admin Dose 145 MG; Start 04/02/16 at 09:00 Insulin Aspart (Novolog Insulin Pen) NOVOLOG *MODERATE* ALGORI... Q4 SC Last administered on 04/02/16 20:55; Admin Dose 2 UNIT; Start 04/01/16 at 17:00 Hydralazine HCl 10 mg 10 mg Q8H PRN IV ELEVATED BLOOD PRESSURE; Start 04/01/16 at 14:00 Sodium Chloride (NS) 1,000 ml @ 100 mls/hr Q10H IV Last administered on 09:24; Admin Dose 100 MLS/HR; Start 04/01/16 at 14:04 Ondansetron HCl (Zofran Inj) 4 mg Q6H PRN IV NAUSEA AND/OR VOMITING Last administered on 04/03/16 03:52; Admin Dose 4 MG; Start 04/01/16 at 14:30 Acetaminophen (Tylenol Tab) 650 mg Q6H PRN PO PAIN LEVEL 1-3 OR FEVER; Start at 14:30 Acetaminophen (Tylenol Supp) 650 mg Q6H PRN [place] PAIN LEVEL 1-3 OR FEVER; Start 04/01/16 at 14:30 Hydromorphone HCl (Dilaudid) 0.5 mg Q4H PRN IV SEVERE PAIN LEVEL 7-10 Last administered on 04/03/16 09:40; Admin Dose 0.5 MG; Start 04/01/16 at 14:30 Docusate Sodium (Colace) 100 mg Q12H PRN PO CONSTIPATION; Start 04/01/16 at 14: 30 Magnesium Hydroxide (Milk Of Mag) 30 ml DAILY PRN PO CONSTIPATION; Start at 14:30 Bisacodyl 10 mg 10 mg DAILY PRN [place] CONSTIPATION; Start 04/01/16 at 14:30 Piperacillin Sod/ Tazobactam Sod (Zosyn 3.375gm/ 100 ml (Pmx)) 100 ml @ 200 mls /hr Q8 IVPB Last administered on 04/03/16 05:22; Admin Dose 200 MLS/HR; Start 04/01/16 at 22:00 Miscellaneous Information 1 ea NOTE XX ; Start 04/01/16 at 14:30 Glucose (Glutose) 15 gm Q15M PRN PO DECREASED GLUCOSE; Start 04/01/16 at 14:30 Glucose (Glutose) 22.5 gm Q15M PRN PO DECREASED GLUCOSE; Start 04/01/16 at 14:30 Dextrose (D50w Syringe) 25 ml Q15M PRN IV DECREASED GLUCOSE; Start 04/01/16 at 14:30 Dextrose (D50w Syringe) 50 ml Q15M PRN IV DECREASED GLUCOSE; Start 04/01/16 at 14:30 Glucagon (Glucagen) 1 mg Q15M PRN IM DECREASED GLUCOSE; Start 04/01/16 at 14:30 Glucose (Glutose) 15 gm Q15M PRN BUCCAL DECREASED GLUCOSE; Start 04/01/16 at 14: 30 Nicotine (Nicoderm 21 Mg/ 24hr) 1 patch DAILY TRANSDERM Last administered on 09:25; Admin Dose 1 PATCH; Start 04/01/16 at 15:00 Diphenhydramine HCl (Benadryl) 12.5 mg Q8 PRN IV PRURITUS Last administered on 04/02/16 21:43; Admin Dose 12.5 MG; Start 04/01/16 at 18:30 Pantoprazole (Protonix Iv) 40 mg BID IV Last administered on 04/03/16 09:25; Admin Dose 40 MG; Start 04/02/16 at 21:00 EVELINA MARTINES Apr 03, 2016 12:07
[2016-04-03] MEDS ORDERED: NEOMYC/POLYMYX/BACIT 0.9 GM OINT ONE (12:38)
[2016-04-03] MEDS ORDERED: PROPOFOL 20 ML ONE (16:25)
[2016-04-03] MEDS ORDERED: MIDAZOLAM 1 MG/ML 2 ML INJ ONE ×2 (16:26)
[2016-04-03] MEDS: SUCRALFATE (100 MG/ML) 10ML CUP PO SCH ×2 (18:11→20:47)
[2016-04-03] MEDS: ATORVASTATIN 20 MG TAB PO SCH (20:47)
[2016-04-03] MEDS: INSULIN GLARGINE [LANtus] 3 ML PEN SC SCH (20:55)
[2016-04-03] MEDS: DIPHENHYDRAMINE 50 MG INJ IV PRN (21:21)
[2016-04-04 00:05] VITALS: BP 126/64; PULSE 78; RESP 20
[2016-04-04] MEDS: INSULIN ASPART [NOVOLOG] 3 ML PEN SC SCH ×5 (01:00→17:53)
[2016-04-04] MEDS: HYDROmorphONE 1 MG/ML SYG IV PRN ×4 (02:52→17:54)
[2016-04-04 04:00] VITALS: BP 129/61; PULSE 77; RESP 18
[2016-04-04] MEDS: PIPER-TAZO 3.375 GM IV (PMX) 100 ML IVPB SCH ×2 (05:57→13:16)
[2016-04-04 07:08] VITALS: BP 109/55; RESP 20
[2016-04-04] MEDS: MOMETASONE 0.24 GM INHALER INH SCH (08:41)
[2016-04-04] MEDS: PANTOPRAZOLE 40 MG INJ IV SCH (08:41)
[2016-04-04] MEDS: SUCRALFATE (100 MG/ML) 10ML CUP PO SCH ×3 (08:42→17:48)
[2016-04-04] MEDS: BENAZEPRIL 40 MG TAB PO SCH (08:42)
[2016-04-04] MEDS: ONDANSETRON 4 MG INJ IV PRN (08:42)
[2016-04-04] MEDS: FENOFIBRATE 145 MG TAB PO SCH (08:42)
[2016-04-04] MEDS: NICOTINE (21 MG/24 HR) PATCH TRANSDERM SCH (08:43)
[2016-04-04] MEDS: AMLODIPINE 5 MG TAB PO SCH (08:43)
[2016-04-04] MEDS: PAROXETINE 20 MG TAB PO SCH (08:47)
[2016-04-04] MEDS: ALBUTEROL/IPRATROPIUM (NEB) 3 ML AMP HHN SCH ×2 (09:43→16:13)
[2016-04-04] MEDS: SOD CHLORIDE 0.9% 1,000 ML IV SCH (10:36)
--- NOTE | 2016-04-04 12:06 | GILP ---
DATE OF PROCEDURE: PROCEDURE: Esophagogastroduodenoscopy with biopsies. BRIEF HISTORY AND INDICATIONS: The patient is being evaluated for severe epigastric abdominal pain, findings including cholelithiasis but no evidence of cholecystitis or choledocholithiasis. PREMEDICATION: Monitored anesthesia care by anesthesiologist. SURGEON: Sen Eagle MD INSTRUMENT USED: Olympus panendoscope. TECHNIQUE: After informed consent, with the patient/relatives understanding the procedure, its indic ations, potential risks and complications, including but not limited to: allergic reaction, bleeding , perforation or infection, and after all pertinent questions were answered to the patients satisfac tion, the patient/relatives signed witnessed informed consent. Following this, premedication was administered slowly IV push under careful cardiovascular and respi ratory monitoring with pulse oximetry, automatic blood pressure and immigration services officer. Once the sedative effect was achieved the patient was place in the left lateral decubitus, the panen doscope was introduced and advanced under visual control. Careful examination of the upper gastrointestinal tract, both on insertion as well as withdrawal of the instrument disclosed the following findings: ESOPHAGUS: The distal esophagus shows erythema and edema of the mucosa at the EG junction which is graded as moderate. STOMACH: Upon entrance to the stomach, air was insufflated, the gastric merino distended normally. There is erythema and edema of the mucosa in a diffuse pattern. Biopsies were obtained to rule out H. pylori infection. PYLORUS: The pylorus appears patent and within normal limits, with no evidence of gastric outlet obs truction. DUODENUM: The duodenal bulb shows significant erythema, edema and erosion of the mucosa of the duod enal bulb and second portion of the duodenum. No definitive ulceration is noted. Several small duo denal polyps measuring approximately 6 to 7 mm were identified, one such polyp was biopsied for hist ological sampling. The instrument was then withdrawn, the patient tolerated the procedure well and was transfer out of the endoscopy suite awake, and in good condition to continue recovery under observation IMPRESSION: 1. Moderate esophagitis. 2. Moderate gastritis, rule out H. pylori infection, biopsies obtained. Severe erosive duodenitis . 3. Small duodenal polyps. Biopsies obtained. PLAN: The patient will be treated with PPIs. Pathology will be reviewed as soon as available and f lópez recommendation will depend on her clinical course. Dictated By: SEN EAGLE MS/LIAM Conf#: [id number] [facility]#: [id number]
--- NOTE | 2016-04-04 18:46 | PDOCDIS ---
Discharge Instructions DIAGNOSIS Discharge Diagnosis: Esophagitis, gastritis, duodenitis CONDITION Patient Condition: Good HOME CARE INSTRUCTIONS: Diet Instructions: 2gm NaSpecial Diet: Controlled carbohydrate ACTIVITY: Activity Restrictions: Slowly Increase Activity FOLLOW UP/APPOINTMENTS Appointments Dr. Eagle in the next two weeks; PCP in the next week SEAN FIERRO M.D. Apr 04, 2016 18:45
[2016-04-04] MEDS ORDERED: PANT40TA3 PO (18:48)
--- NOTE | 2016-04-04 18:49 | DS ---
Date/Time of Note Date/Time of Note DATE: 04/04/16 TIME: 18:49 Discharge Summary Admission/Discharge Info Admit Date/Time Apr 01, 2016 at 11:52 Discharge Date/Time Apr 04, 2016 Final Diagnosis Moderate esophagitis and gastritis, with severe erosive duodenitis Patient Condition: Good Consults Dr. Анна Eagle (GI) Procedures MRI Abdomen HIDA scan Abdominal plain x-rays EGD Hx of Present Illness Ms. Suero is a 61-year-old woman who presented to the [facility] emergency department with abdominal pain for the preceding 5 days. She was started on Augmentin for her lower extremity diabetic wounds and developed abdominal pain after four days focused in the right upper quadrant and radiating to the right flank. The pain continued to worsen, not affected by eating and with no change in bowel habitus. ALLERGIES: LATEX. PAST MEDICAL HISTORY: 1. Obesity. 2. Obstructive sleep apnea on CPAP at night and while sleeping. 3. COPD and chronic hypoxemia, oxygen dependent. 4. Diabetes mellitus, insulin requiring. 5. Hypertension. 6. Chronic diabetic wounds lower extremity. 7. Hyperlipidemia. 8. Gastroesophageal reflux disease. 9. Major depressive disorder. PAST SURGICAL HISTORY: 1. Status post total hysterectomy and bilateral salpingo-oophorectomy in 1993. 2. Previous C-sections. 3. Status post colonoscopy last year. The patient reports that no acute findings at that time. This was done outpatient. Hospital Course In the emergency department her laboratory data showed a white blood cell count at 11.9 with a normal differential. She had ultrasound of the abdomen that showed possible acute cholecystitis. She denied any fevers. She was started on Zosyn in the emergency department and Dr. Hester from general surgery was consulted. A HIDA scan showed normal liver enhancement and gallbladder filling , but no through passage to the small intestines for the first 90 minutes. But an MRI of the abdomen showed no evidence for cholecystitis. She had diabetic ulcers on her lower extremities with minimal cellulitis that was covered by the Zosyn. She underwent upper endoscopy on the day of discharge, showing moderate esophagitis and gastritis, with severe erosive duodenitis. Biopsies showed no H. pylori infection. She was discharged home on Protonix 40mg PO BID. She felt quite well at the time of discharge, breathing comfortably on oxygen per nasal cannula. Her exam demonstrated her large body frame, but with normal cardiac, pulmonary and neurologic exams. She had normal bowel sounds with no tenderness, rebound or guarding. After discharge, she called to request a refill of her oxycodone , which I sent electronically in to her [facility] on [address]. Home Meds Active Scripts Pantoprazole* (Protonix*) 40 Mg Tablet.dr, 40 MG PO BID for 30 Days, TAB Prov:SEAN FIERRO M.D. 04/04/16 Ipratropium [place]* (Atrovent*) 0.5 Mg/2.5 Ml Nebu, 0.5 MG NEB Q4H RESP THERAPY Y for SHORTNESS OF BREATH, #90 3 Refills Prov:EVELINA MARTINES 05/22/15 Reported Medications Beclomethasone Dip* (Qvar 80*) 7.3 Gm Inha, 2 PUFF INH BID, #1 INHALER 05/20/15 Fenofibrate, Micronized* (Lofibra*) 160 Mg Tablet, 160 MG PO DAILY, TAB 05/20/15 Insulin Lispro (Humalog) 100 U/Ml Cartridge, 16 UNITS SC WITH MEALS, EA 05/20/15 Insulin Glargine,Hum.rec.anlog (Lantus Solostar) 100 Units/Ml Pen, 30 UNITS SC BID 12/29/13 Albuterol Sulfate* (Albuterol Sulfate* Neb) 0.083%-3 Ml Neb, 1 VIAL NEB Q4H, EA 12/29/13 Atorvastatin Calcium* (Atorvastatin Calcium*) 20 Mg Tablet, 20 MG PO HS, TAB 12/29/13 Albuterol Sulfate* (Proair HFA*) 8.5 Gm Hfa.aer.ad, 2 PUFF INH Q4-6HOURS, INH 12/29/13 Metformin Hcl* (Metformin Hcl*) 1,000 Mg Tablet, 1000 MG PO BID, TAB 12/29/13 Aspirin (Aspirin) 81 Mg Tablet, 81 MG PO DAILY 09/14/11 Amlodipine Besylate* (Norvasc*) 5 Mg Tablet, 5 MG PO DAILY 09/14/11 Benazepril Hcl* (Benazepril Hcl*) 40 Mg Tablet, 40 MG PO DAILY 09/14/11 Hydrochlorothiazide (Hydrochlorothiazide) 25 Mg Tablet, 25 MG PO DAILY 09/14/11 Paroxetine Hcl* (Paroxetine*) 20 Mg Tablet, 20 MG PO DAILY 09/14/11 Discontinued Reported Medications Omeprazole* (Prilosec*) 20 Mg Capsule.dr, 20 MG PO DAILY, CAP 12/29/13 Fluticasone Propionate (Flovent Diskus) 50 Mcg/Disk W/Dev Disk.w.dev, 2 SPRAY INH DAILY 09/14/11 Discontinued Scripts Hydrocortisone* Rectal (Preparation H* Cream) 1% - 26 Gm Cream.gm., 1 APPLIC PA BID for 10 Days, TUB Prov:EVELINA MARTINES 05/22/15 Levofloxacin* (Levaquin*) 750 Mg Tablet, 750 MG PO DAILY@06 for 5 Days, TAB Prov:EVELINA MARTINES 05/22/15 Hydrocodone Bit/Acetaminophen (Anexsia 5-325 Mg Tablet) 1 Tab Tab, 1 TAB PO Q6H Y for MODERATE PAIN LEVEL 4-6, #30 TAB Prov:EVELINA MARTINES 05/22/15 Follow-up Plan Dr. Eagle in the next two weeks; PCP in the next week Pending Labs Laboratory Tests Test 04/03/16 20:46 04/04/16 01:55 04/04/16 06:00 04/04/16 11:59 Bedside Glucose 176mg/dL (70-220) 110mg/dL (70-220) 152mg/dL (70-220) 193mg/dL (70-220) Test 04/04/16 17:20 Bedside Glucose 190mg/dL (70-220) Copies To: CC: EVELINA MARTINES; АННА EAGLE MD, JOHN P. M.D. Apr 04, 2016 18:49
== END 2016-04-04 19:50 | disposition home or self-care (01) | DRG 392 ==
LOC: E/R 09:53 → MS1 11:52
PROVIDERS: ADMIT Internal Medicine; ATTEND Internal Medicine
PROC: 0DB98ZX Excision of Duodenum, Via Natural or Artificial Opening Endoscopic, Diagnostic (ICD-10-PCS; 2016-04-03)
PROC: 0DB68ZX Excision of Stomach, Via Natural or Artificial Opening Endoscopic, Diagnostic (ICD-10-PCS; principal; 2016-04-03 20:30)
DX: K21.0 Gastro-esophageal reflux disease with esophagitis (principal); E11.621 Type 2 diabetes mellitus with foot ulcer; Z99.81 Dependence on supplemental oxygen; F33.9 Major depressive disorder, recurrent, unspecified; Z68.41 Body mass index [BMI] 40.0-44.9, adult; L97.929 Non-pressure chronic ulcer of unspecified part of left lower leg with unspecified severity; L97.819 Non-pressure chronic ulcer of other part of right lower leg with unspecified severity; K29.70 Gastritis, unspecified, without bleeding; E78.5 Hyperlipidemia, unspecified; R09.02 Hypoxemia; J44.9 Chronic obstructive pulmonary disease, unspecified; G47.33 Obstructive sleep apnea (adult) (pediatric); K31.7 Polyp of stomach and duodenum; E11.622 Type 2 diabetes mellitus with other skin ulcer; K29.80 Duodenitis without bleeding; Z72.0 Tobacco use; Z79.82 Long term (current) use of aspirin; Z79.4 Long term (current) use of insulin
CPT/HCPCS: 71010; 74181; 76705; 78226; 80053; 80061; 81003; 82150; 82962; 83036; 83690; 83735; 84100; 85025; 85610; 85730; 88305; 88312; 93005; 94640; 94664; A9537; C9113; J1170; J1200; J1815; J2060; J2250; J2405; J2543; J7030; J7040

== ENCOUNTER 2016-08-12 13:13 | Emergency (ER) | payer OTHER, MEDICAID ==
[~2016-08-12] VITALS: Ht 162.6 cm; Wt 132.0 kg
[~2016-08-12 13:13] MED LIST changes: -FLUT50DI INH; -HYDR-3498 PO; -HYDR26CR PR; -LEVO750T25 PO; -METF-388 PO; +METF1000 PO; -OMEP20CA9 PO; +PANT40TA3 PO
[2016-08-12 13:19] VITALS: Ht 162.6 cm; Wt 132.0 kg
[2016-08-12] MEDS ORDERED: morphine 10 MG INJ IV ONE (14:00)
[2016-08-12 14:03] LABS: ADD SCAN DIFF NO
[2016-08-12 14:04] LABS: BASOPHIL # 0.1 10^3/ul (0.0-0.1); BASOPHILS % 0.9 % (0.0-2.0); EOSINOPHILS # 0.5 10^3/ul (0.0-0.5); EOSINOPHILS % 4.5 % (0.0-7.0); HEMATOCRIT 37.1 % (37.0-47.0); HEMOGLOBIN 11.8 g/dl (12.0-16.0); LYMPHOCYTES # 2.6 10^3/ul (0.8-2.9); LYMPHOCYTES % 24.9 % (15.0-51.0); MEAN CORPUSCULAR HEMOGLOBIN 27.5 pg (29.0-33.0); MEAN CORPUSCULAR HGB CONC 31.8 g/dl (32.0-37.0); MEAN CORPUSCULAR VOLUME 86.5 fl (82.0-101.0); MONOCYTE # 0.6 10^3/ul (0.3-0.9); MONOCYTES % 5.7 % (0.0-11.0); NEUTROPHIL # 6.6 10^3/ul (1.6-7.5); NEUTROPHILS % 63.4 % (39.0-77.0); PLATELET COUNT 373 10^3/UL (140-415); RED BLOOD COUNT 4.29 10^6/ul (4.20-5.40); RED CELL DISTRIBUTION WIDTH 15.6 % (11.5-14.5); WHITE BLOOD COUNT 10.3 10^3/ul (4.8-10.8)
[2016-08-12] MEDS ORDERED: SOD CHLORIDE 0.9% 1,000 ML IV STA (14:16)
[2016-08-12 14:20] LABS: ALBUMIN 4.7 g/dl (3.3-4.9); INR 0.9; PROTIME 12.1 Sec (12.2-14.2); PT RATIO 0.9
[2016-08-12 14:21] LABS: CHLORIDE 98 mmol/L (97-110); PARTIAL THROMBOPLASTIN TIME 27.5 Sec (25.0-35.0); POTASSIUM 4.4 mmol/L (3.5-5.1); SODIUM 137 mmol/L (135-144)
[2016-08-12 14:23] LABS: ANION GAP 19 (8-16); ASPARTATE AMINO TRANSFERASE 37 IU/L (15-46); CARBON DIOXIDE 24 mmol/L (21-31)
[2016-08-12 14:24] LABS: ALANINE AMINOTRANSFERASE 44 IU/L (13-69); ALBUMIN/GLOBULIN RATIO 1.51; ALKALINE PHOSPHATASE 74 IU/L (42-121); BLOOD UREA NITROGEN 20 mg/dl (7-20); CALCIUM 9.4 mg/dl (8.4-10.2); GLUCOSE 177 mg/dl (70-220); TOTAL PROTEIN 7.8 g/dl (6.1-8.1)
[2016-08-12 14:35] LABS: TROPONIN-I < 0.012 ng/ml (0.00-0.12)
--- NOTE | 2016-08-12 14:42 | RADRPT ---
PROCEDURE: XR Chest. CLINICAL INDICATION: Sepsis TECHNIQUE: Chest AP portable COMPARISON: 04/01/2016 FINDINGS: The mediastinal structures are unremarkable. There is calcification of the thoracic aorta (consiste nt with atherosclerosis). The heart is normal in size and configuration. The pulmonary vascularity is normal. The lung neville are unremarkable. No consolidation is identified. The pleural spaces are unremarkable. The osseous structures are unremarkable. IMPRESSION: Calcification of the thoracic aorta (consistent with atherosclerosis). No evidence for active cardiopulmonary disease. RPTAT: HGDB .Erwin Lozoya MD, MD Date Time Electronically viewed and signed by .Erwin Lozoya MD, on 08/12/2016 14:41 .B/
[2016-08-12 16:22] LABS: ADD UMIC YES; URINE BILIRUBIN (Dip) NEGATIVE (NEGATIVE); URINE BLOOD (Dip) TRACE (NEGATIVE); URINE COLOR LT. YELLOW (YELLOW); URINE GLUCOSE (Dip) NEGATIVE (NEGATIVE); URINE KETONES (Dip) NEGATIVE (NEGATIVE); URINE LEUKOCYTE ESTERASE (Dip) NEGATIVE (NEGATIVE); URINE NITRITE (Dip) NEGATIVE (NEGATIVE); URINE TOTAL PROTEIN (Dip) NEGATIVE (NEGATIVE); URINE UROBILINOGEN (Dip) 0.2 E.U./dL (0.1-1.0)
[2016-08-12 16:46] LABS: SQUAMOUS EPITHELIAL CELL,UR FEW; URINE RBCS 0-2 /HPF (0)
--- NOTE | 2016-08-12 16:58 | ERD ---
ER Documentation Chief Complaint Date/Time DATE: 08/12/16 TIME: 16:55 Chief Complaint AP WITH ACTIVE RECTAL BLEEDING, ALSO SOB & BILATERAL LESIONS HPI This is a 61-year-old female presents to the emergency room for evaluation of rectal bleeding. The patient states that she has noticed some bright red blood when she wipes. The patient states that she was constipated from taking [place]. The patient states that she is having pain in her abdomen localizes the pain to the suprapubic region. The patient denies any radiation of the pain and states it somewhat worse with urinating. The patient just finished a course of Bactrim for UTI and came to the emergency room for evaluation. ROS All systems reviewed and are negative except as per history of present illness. Medications Home Meds Active Scripts Pantoprazole* (Protonix*) 40 Mg Tablet.dr, 40 MG PO BID for 30 Days, TAB Prov:SEAN FIERRO M.D. 04/04/16 Ipratropium [place]* (Atrovent*) 0.5 Mg/2.5 Ml Nebu, 0.5 MG NEB Q4H RESP THERAPY Y for SHORTNESS OF BREATH, #90 3 Refills Prov:EVELINA MARTINES 05/22/15 Reported Medications Beclomethasone Dip* (Qvar 80*) 7.3 Gm Inha, 2 PUFF INH BID, #1 INHALER 05/20/15 Fenofibrate, Micronized* (Lofibra*) 160 Mg Tablet, 160 MG PO DAILY, TAB 05/20/15 Insulin Lispro (Humalog) 100 U/Ml Cartridge, 16 UNITS SC WITH MEALS, EA 05/20/15 Insulin Glargine,Hum.rec.anlog (Lantus Solostar) 100 Units/Ml Pen, 30 UNITS SC BID 12/29/13 Albuterol Sulfate* (Albuterol Sulfate* Neb) 0.083%-3 Ml Neb, 1 VIAL NEB Q4H, EA 12/29/13 Atorvastatin Calcium* (Atorvastatin Calcium*) 20 Mg Tablet, 20 MG PO HS, TAB 12/29/13 Albuterol Sulfate* (Proair HFA*) 8.5 Gm Hfa.aer.ad, 2 PUFF INH Q4-6HOURS, INH 12/29/13 Metformin Hcl* (Metformin Hcl*) 1,000 Mg Tablet, 1000 MG PO BID, TAB 12/29/13 Aspirin (Aspirin) 81 Mg Tablet, 81 MG PO DAILY 09/14/11 Amlodipine Besylate* (Norvasc*) 5 Mg Tablet, 5 MG PO DAILY 09/14/11 Benazepril Hcl* (Benazepril Hcl*) 40 Mg Tablet, 40 MG PO DAILY 09/14/11 Hydrochlorothiazide (Hydrochlorothiazide) 25 Mg Tablet, 25 MG PO DAILY 09/14/11 Paroxetine Hcl* (Paroxetine*) 20 Mg Tablet, 20 MG PO DAILY 09/14/11 Allergies Allergies: Coded Allergies: No Known Allergies (Verified Allergy, Unknown, 05/20/15) latex (Verified Adverse Reaction, Severe, HIVES, 05/20/15) PMhx/Soc Anesthesia Reaction: No Hx Neurological Disorder: No Hx Respiratory Disorders: Yes (copd ) Hx Cardiac Disorders: Yes (HTN) Hx Psychiatric Problems: No Hx Miscellaneous Medical Probl: No Hx Alcohol Use: No Hx Substance Use: No Hx Tobacco Use: Yes Smoking Status: Unknown if ever smoked Physical Exam Vitals Vital Signs Date Time Temp Pulse Resp B/P Pulse Ox O2 Delivery O2 Flow Rate FiO2 08/12/16 14:02 Nasal Cannula 3 08/12/16 13:19 99.5 118 28 129/59 92 Physical Exam INITIAL VITAL SIGNS: Reviewed by me GENERAL: The patient is well developed and appropriate for usual state of health in no apparent distress HEENT: Pupils equal, round, and reactive to light. EOMI. There is no scleral icterus. NECK: C-spine is soft and supple, there is no meningismus. There is no cervical lymphadenopathy. LUNGS: Clear to auscultation bilaterally. There are no rales, wheezes or rhonchi. HEART: Regular rate and rhythm, no murmurs, clicks, rubs or gallops. ABDOMEN: Obese limiting exam, suprapubic tenderness to palpation, otherwise soft , non-tender, non-distended. There are bowel sounds in all four quadrants. No rebound or guarding. EXTREMITIES: There is no peripheral cyanosis or edema. No focal swelling or erythema. NEUROLOGICAL: The patient moves all four extremities with 5/5 strength. Cranial nerves II - XII are intact. Normal gait. Alert and oriented SKIN: There is no apparent rash or petechiae. HEME/LYMPHATIC: There is no evidence of excessive bruising or lymphedema. PSYCHIATRIC: The patient does not appear anxious or depressed. Result Diagram: 08/12/16 1340 08/12/16 1340 Results 24 hrs Laboratory Tests Test 08/12/16 13:40 08/12/16 15:45 White Blood Count 10.310^3/ul Red Blood Count 4.2910^6/ul Hemoglobin 11.8g/dl Hematocrit 37.1% Mean Corpuscular Volume 86.5fl Mean Corpuscular Hemoglobin 27.5pg Mean Corpuscular Hemoglobin Concent 31.8g/dl Red Cell Distribution Width 15.6% Platelet Count 45481^3/UL Mean Platelet Volume 9.0fl Neutrophils % 63.4% Lymphocytes % 24.9% Monocytes % 5.7% Eosinophils % 4.5% Basophils % 0.9% Nucleated Red Blood Cells % 0.0/100WBC Neutrophils # 6.610^3/ul Lymphocytes # 2.610^3/ul Monocytes # 0.610^3/ul Eosinophils # 0.510^3/ul Basophils # 0.110^3/ul Nucleated Red Blood Cells # 0.010^3/ul Prothrombin Time 12.1Sec Prothrombin Time Ratio 0.9 INR International Normalized Ratio 0.90 Activated Partial Thromboplast Time 27.5Sec Sodium Level 137mmol/L Potassium Level 4.4mmol/L Chloride Level 98mmol/L Carbon Dioxide Level 24mmol/L Anion Gap 19 Blood Urea Nitrogen 20mg/dl Creatinine 1.00mg/dl Glucose Level 177mg/dl Lactic Acid Level 2.3mmol/L Calcium Level 9.4mg/dl Total Bilirubin 0.0mg/dl Direct Bilirubin 0.00mg/dl Indirect Bilirubin 0.0mg/dl Aspartate Amino Transf (AST/SGOT) 37IU/L Alanine Aminotransferase (ALT/SGPT) 44IU/L Alkaline Phosphatase 74IU/L Troponin I < 0.012ng/ml Total Protein 7.8g/dl Albumin 4.7g/dl Globulin 3.10g/dl Albumin/Globulin Ratio 1.51 Urine Color LT. YELLOW Urine Clarity CLEAR Urine pH 5.5 Urine Specific [place] <=1.005 Urine Ketones NEGATIVE Urine Nitrite NEGATIVE Urine Bilirubin NEGATIVE Urine Urobilinogen 0.2 E.U./dL Urine Leukocyte Esterase NEGATIVE Urine Microscopic RBC 0-2/HPF Urine Microscopic WBC NONE SEEN/HPF Urine Squamous Epithelial Cells FEW Urine Hemoglobin TRACE Urine Glucose NEGATIVE% Urine Total Protein NEGATIVE Current Medications Medications (Trade) Dose Ordered Sig/Jose Guadalupe Route PRN Reason Start Time Stop Time Status Last Admin Dose Admin Morphine Sulfate 6 mg 6 mg ONCE ONCE IV 08/12/16 14:00 08/12/16 14:01 DC 08/12/16 13:57 Sodium Chloride (NS) 1,000 ml @ 1,000 mls/hr Q1H STAT IV 08/12/16 14:16 08/12/16 15:15 DC 08/12/16 15:15 Procedures/MDM EKG: Rate/Rhythm: [Normal Sinus Rhythm] QRS, ST, T-waves: [No changes consistent w/ acute ischemia] Impression: [No evidence of ischemia or arrhythmia] Chest X-ray 1V Interpreted by me: Soft Tissue: No acute abnormalities Bones: No acute abnormalities Mediastinum/Cardiac Silhouette/Lungs: [No acute abnormalities] This 61-year-old female presents to the emergency room for evaluation of abdominal pain and rectal bleeding. When I evaluated this patient she was mildly tachycardic. The patient is on home oxygen and was wearing 2 L nasal cannula with an oxygen saturation 97%. She did have suprapubic tenderness to palpation. A sepsis workup was started which just shows an isolated elevated lactic acid. The patient was given 1 L of fluids in the emergency room. She was given morphine for pain. Urinalysis does not reveal any bacteria in the urine. Urine cultures were sent. This patient is following up with her primary care physician tomorrow and is receiving a CT of the abdomen and pelvis. I advised her to continue to follow-up with that appointment and to return to the ER if her symptoms worsen. After premedication suspicious that she is feeling better, and again she was instructed to return to the ER if any of her symptoms return and she verbalized understanding. No active bleeding from the rectum on my examination. I also advised the patient to discontinue use of tobacco Smoking Cessation Therapy: Pt. was lectured for greater than 3 minutes on the health risks of continued smoking and the benefits of cessation. Departure Diagnosis: Primary Impression: Abdominal pain Additional Impressions: Tobacco abuse Tobacco abuse counseling Rectal bleeding Condition: Stable BAYLEE SMART DO August 12, 2016 16:57
== END 2016-08-12 17:00 | disposition home or self-care (01) ==
LOC: E/R 13:13
DX: R10.30 Lower abdominal pain, unspecified (principal); K62.5 Hemorrhage of anus and rectum; I10 Essential (primary) hypertension; J44.9 Chronic obstructive pulmonary disease, unspecified; E11.9 Type 2 diabetes mellitus without complications; Z71.6 Tobacco abuse counseling; Z79.4 Long term (current) use of insulin; Z79.82 Long term (current) use of aspirin; Z87.891 Personal history of nicotine dependence; Z79.84 Long term (current) use of oral hypoglycemic drugs; Z91.040 Latex allergy status
CPT/HCPCS: 36415; 71010; 80053; 81001; 83605; 84484; 85025; 85610; 85730; 87040; 87086; 93005; 96374; 99285; J2270; J7030; 81003

== ENCOUNTER 2016-11-10 14:07 | Inpatient (IN) | payer OTHER, MEDICAID ==
[~2016-11-10] VITALS: Ht 167.6 cm; Wt 119.6 kg
[2016-11-10] MEDS ORDERED: IPRATROPIUM (NEB) 0.5 MG/2.5 ML AMP INH STA (14:09)
[2016-11-10] MEDS ORDERED: METHYLPREDNISOLONE 125 MG INJ IV STA (14:09)
[2016-11-10] MEDS ORDERED: ALBUTEROL 0.5% (NEB) 2.5 MG/0.5 ML AMP INH STA (14:09)
[2016-11-10] MEDS ORDERED: ONDANSETRON 4 MG INJ IV STA (14:14)
[2016-11-10] MEDS ORDERED: ONDANSETRON 4 MG INJ ONE (14:16)
[2016-11-10 14:27] LABS: BASOPHIL # 0.1 10^3/ul (0.0-0.1); BASOPHILS % 0.2 % (0.0-2.0); HEMATOCRIT 35.1 % (37.0-47.0); HEMOGLOBIN 11.4 g/dl (12.0-16.0); LYMPHOCYTES # 1.1 10^3/ul (0.8-2.9); LYMPHOCYTES % 5.4 % (15.0-51.0); MEAN CORPUSCULAR HEMOGLOBIN 26.9 pg (29.0-33.0); MEAN CORPUSCULAR HGB CONC 32.5 g/dl (32.0-37.0); MEAN CORPUSCULAR VOLUME 82.8 fl (82.0-101.0); MEAN PLATELET VOLUME 8.8 fl (7.4-10.4); MONOCYTE # 0.6 10^3/ul (0.3-0.9); MONOCYTES % 2.9 % (0.0-11.0); NEUTROPHILS % 90.5 % (39.0-77.0); PLATELET COUNT 380 10^3/UL (140-415); RED BLOOD COUNT 4.24 10^6/ul (4.20-5.40); RED CELL DISTRIBUTION WIDTH 14.6 % (11.5-14.5); WHITE BLOOD COUNT 20.7 10^3/ul (4.8-10.8)
[2016-11-10 14:48] LABS: ADD UMIC YES; UR ASCORBIC ACID 40 mg/dL (NEGATIVE); UR BACTERIA FEW /HPF (NONE SEEN); UR BILIRUBIN (Dip) NEGATIVE (NEGATIVE); UR BLOOD (Dip) NEGATIVE (NEGATIVE); UR CLARITY SLIGHTLY CLOUDY (CLEAR); UR COLOR YELLOW (YELLOW); UR GLUCOSE (Dip) NEGATIVE (NEGATIVE); UR KETONES (Dip) NEGATIVE (NEGATIVE); UR LEUKOCYTE ESTERASE (Dip) NEGATIVE Leu/ul (NEGATIVE); UR NITRITE (Dip) NEGATIVE (NEGATIVE); UR RBC 0 /HPF (0-5); UR SPECIFIC GRAVITY (Dip) 1.012 (1.003-1.030); UR SQUAMOUS EPITHELIAL CELL FEW /HPF (FEW); UR TOTAL PROTEIN (Dip) 2+ mg/dl (NEGATIVE); UR UROBILINOGEN (Dip) NEGATIVE (NEGATIVE)
[2016-11-10 14:50] LABS: ALBUMIN 4.6 g/dl (3.3-4.9); ALBUMIN/GLOBULIN RATIO 1.27; BILIRUBIN,INDIRECT 0.4 mg/dl (0-1.1); BILIRUBIN,TOTAL 0.4 mg/dl (0.2-1.3); CALCIUM 9.7 mg/dl (8.4-10.2); CREATININE 1.02 mg/dl (0.44-1.00); INR 0.99; PARTIAL THROMBOPLASTIN TIME 32.5 Sec (25.0-35.0); PROTIME 13.1 Sec (12.2-14.2); TOTAL PROTEIN 8.2 g/dl (6.1-8.1)
[2016-11-10] MEDS ORDERED: FURO40TA4 PO (14:56)
[2016-11-10] MEDS ORDERED: OMEG-135 PO (14:59)
[2016-11-10] MEDS ORDERED: morphine 10 MG INJ IV ONE ×2 (15:00)
[2016-11-10] MEDS ORDERED: ASCO-163 PO (15:00)
--- NOTE | 2016-11-10 15:00 | RADRPT ---
PROCEDURE: Chest 1 views. CLINICAL INDICATION: Shortness of breath. TECHNIQUE: AP views of the chest was obtained. COMPARISON: August 12, 2016 FINDINGS: The heart is large. Atelectasis versus mild infiltrates are seen at the lung bases and may be combin ed small pleural effusions. Mild central pulmonary vascular congestion and interstitial prominence is seen in both lungs. Osseous structures are intact. IMPRESSION: Cardiomegaly . Central pulmonary vascular congestion and interstitial prominence is seen in both lungs. Atelectasis versus mild infiltrates at the lung bases, possibly combined with small pleural effusion s. RPTAT: AA .Kyle Alva MD, MD Date Time Electronically viewed and signed by .Kyle Alva MD, MD on 11/10/2016 15:00 .P/
[2016-11-10] MEDS ORDERED: FLUT16SP17 NASAL (15:01)
[2016-11-10] MEDS ORDERED: CEFTRIAXONE 1 GM/50 ML (PMX) 50 ML IVPB STA (15:02)
[2016-11-10] MEDS ORDERED: SOD CHLORIDE 0.9% 1,000 ML IV STA (15:02)
[2016-11-10] MEDS ORDERED: AZITHROMYCIN 500MG/NS (PMX) 250 ML IV STA (15:02)
[2016-11-10] MEDS ORDERED: MULT1CAP20 PO (15:03)
[2016-11-10 15:05] LABS: TROPONIN-I 0.025 ng/ml (0.00-0.12)
[2016-11-10] MEDS ORDERED: ACETAMINOPHEN 500 MG TAB PO STA (15:13)
[2016-11-10 15:20] LABS: AADO2 Arterial 105.5 mmHg (7.0-24.0); Allen Test ACCEPTAB; Arterial Base Excess 2.1 mmol/L (-3.0-3); Arterial COHb 0.4 % (0.0-3.0); Arterial Fraction of Oxyhgb 98.1 % (93.0-99.0); Arterial HCO3 28.1 mmol/L (22.0-26.0); Arterial MetHb 0.3 % (0.0-1.5); Arterial Total Hemglobin 11.9 g/dl (12.0-18.0); Blood Gas IEPAP 15/5; Blood Gas PS 10; MODE MASK - BIPAP
--- NOTE | 2016-11-10 16:24 | RADRPT ---
PROCEDURE: CT Abdomen and Pelvis without contrast CLINICAL INDICATION: Left lower quadrant pain, fever TECHNIQUE: Transaxial images were obtained through the abdomen and pelvis on a multi-slice scanner without the intravenous contrast administration. No oral contrast had previously been given. Sagit hetal and coronal re-formations were subsequently reconstructed. One or more of the following dose reduction techniques were used: - Automated exposure control. - Adjustment of the mA and/or kV according to patient size. - Use of iterative reconstruction technique. Radiation dose: CTDIvol = 23.60 mGy; DLP = 1337.58 mGy-cm. COMPARISON: 05/22/2015 FINDINGS: Lung bases: Mild discoid atelectasis is again seen within the posterior sulci and the lung neville bi laterally. Liver: The liver remains enlarged with no focal lesion identified. Gallbladder: There is cholelithiasis with no gallbladder wall thickening identified. Bile ducts: The intra and extrahepatic bile ducts are normal in caliber. Pancreas: Appears normal with no mass or inflammation evident. Spleen: A 2 cm hypodensity is again seen in the medial anterior spleen with a couple punctate calcif ications, unchanged. The spleen is normal in size. Adrenals: Normal with no mass identified. Kidneys, ureters and bladder: There is been no significant interval change to the 1.5 cm nodule exte nding laterally off the superior pole of the right kidney. The kidneys are otherwise unremarkable e xcept for slight bilateral cortical scarring and minimal perinephric stranding. There is no hydrone phrosis. The ureters are normal in caliber and no ureteroliths are identified. The bladder appears u nremarkable. Reproductive organs: The uterus is absent. No adnexal mass is evident. Stomach and bowel: The stomach appears unremarkable. Appendix: There are no findings to suggest appendicitis. Peritoneum: No free intraperitoneal fluid or air is identified. There is a small fat containing righ t inguinal hernia. There is diastases rectus. Aorta: There is atherosclerotic vascular calcification but no abdominal aortic aneurysm is evident. IVC: Unremarkable. Lymph nodes: Bilateral inguinal nodes are evident up to 1.3 cm in short diameter. Osseous structures: Mild degenerative disk and endplate changes are seen to the lumbar spine. IMPRESSION: 1. Since the previous CT of 05/22/2015, there has been no significant interval change with regards to the 1.5 cm lesion seen extend exophytically laterally off the superior pole of the right kidney w hich could represent a complex cyst or a solid nodule. There is mild renal cortical scarring but th ere is no evidence of hydronephrosis or ureterolithiasis and the bladder appears normal. 2. There is no evidence of bowel obstruction or inflammation. 3. Persistent cholelithiasis not associated gallbladder wall thickening, bile duct dilatation, or p ancreatic pathology. 4. Persistent mild hepatomegaly with no focal lesion. 5. No significant interval change to the 2 cm cystic lesions seen within the medial anterior spleen with several punctate calcifications. 6. Status post hysterectomy with no adnexal mass, unchanged. 7. Atherosclerotic vascular calcification is again evident. 8. Persistent diastases rectus with a small fat containing right inguinal hernia. 9. Increasing bilateral inguinal adenopathy with nodes up to 1.3 cm in short diameter. Physician Mitul Date Time Electronically viewed and signed by Physician Mitul on 11/10/2016 16:23 /
--- NOTE | 2016-11-10 16:47 | ERA ---
ER Documentation Chief Complaint Date/Time DATE: 11/10/16 TIME: 16:44 Chief Complaint short of breath since yesterday HPI This is a 61-year-old female who presents to the emergency room for evaluation of shortness of breath. This patient was brought in from home after her daughter found her and stated that the patient was extremely short of breath. This patient does have a history of COPD and is on 3 L of oxygen at home. According to the daughter the patient had increased difficulty in breathing and she called 9 1 and the patient was transported to the ER. The patient does state that she has shortness of breath, and does have a cough and continues to smoke. She states that she is having pain in the left lower quadrant of her abdomen ROS All systems reviewed and are negative except as per history of present illness. Medications Home Meds Active Scripts Pantoprazole* (Protonix*) 40 Mg Tablet.dr, 40 MG PO BID for 30 Days, TAB Prov:SEAN FIERRO M.D. 04/04/16 Ipratropium Nubieber* (Atrovent*) 0.5 Mg/2.5 Ml Nebu, 0.5 MG NEB Q4H RESP THERAPY Y for SHORTNESS OF BREATH, #90 3 Refills Prov:EVELINA MARTINES 05/22/15 Reported Medications Multivitamin (Multivitamins) 1 Each Capsule, 1 EACH PO DAILY, CAP 11/10/16 Fluticasone Propionate* (Fluticasone Propionate* Nasal) 50 Mcg/[place] - 16 Gm [place].susp, 1 SPRAY NASAL DAILY, #1 BOTTLE TO EACH NOSTRIL 11/10/16 Ascorbic Acid (Vitamin C With Aliyah Hips) 1,000 Mg Tablet, 1000 MG PO DAILY, TAB 11/10/16 [place]-3 Fatty Acids/Fish Oil (Fish Oil 1,000 mg Capsule) 1 Each Capsule, 1 EACH PO BID, CAP 11/10/16 Furosemide* (Furosemide*) 40 Mg Tablet, 40 MG PO DAILY, TAB 11/10/16 Beclomethasone Dip* (Qvar 80*) 7.3 Gm Inha, 2 PUFF INH BID, #1 INHALER 05/20/15 Fenofibrate, Micronized* (Lofibra*) 160 Mg Tablet, 160 MG PO DAILY, TAB 05/20/15 Insulin Lispro (Humalog) 100 U/Ml Cartridge, 18 UNITS SC WITH MEALS, EA 05/20/15 Insulin Glargine,Hum.rec.anlog (Lantus Solostar) 100 Units/Ml Pen, 30 UNITS SC BID 12/29/13 Albuterol Sulfate* (Albuterol Sulfate* Neb) 0.083%-3 Ml Neb, 1 VIAL NEB Q4H, EA 12/29/13 Albuterol Sulfate* (Proair HFA*) 8.5 Gm Hfa.aer.ad, 2 PUFF INH Q4-6HOURS, INH 12/29/13 Metformin Hcl* (Metformin Hcl*) 1,000 Mg Tablet, 1000 MG PO BID, TAB 12/29/13 Aspirin (Aspirin) 81 Mg Tablet, 81 MG PO DAILY 09/14/11 Amlodipine Besylate* (Norvasc*) 5 Mg Tablet, 5 MG PO DAILY 09/14/11 Benazepril Hcl* (Benazepril Hcl*) 40 Mg Tablet, 40 MG PO DAILY 09/14/11 Hydrochlorothiazide (Hydrochlorothiazide) 25 Mg Tablet, 25 MG PO DAILY 09/14/11 Paroxetine Hcl* (Paroxetine*) 20 Mg Tablet, 20 MG PO DAILY 09/14/11 Discontinued Reported Medications Atorvastatin Calcium* (Atorvastatin Calcium*) 20 Mg Tablet, 20 MG PO HS, TAB 12/29/13 Allergies Allergies: Coded Allergies: No Known Drug Allergies (Verified Allergy, Unknown, 11/10/16) latex (Verified Adverse Reaction, Severe, HIVES, 11/10/16) PMhx/Soc Anesthesia Reaction: No Hx Neurological Disorder: No Hx Respiratory Disorders: Yes (copd ) Hx Cardiac Disorders: Yes (HTN, cholesterol) Hx Psychiatric Problems: No Hx Miscellaneous Medical Probl: Yes (renal cyst , dm2) Hx Alcohol Use: No Hx Substance Use: No Hx Tobacco Use: Yes Smoking Status: Former smoker Physical Exam Vitals Vital Signs Date Time Temp Pulse Resp B/P Pulse Ox O2 Delivery O2 Flow Rate FiO2 11/10/16 16:39 Simple Mask 10 11/10/16 16:38 102 24 124/94 98 Mask 10.0 11/10/16 14:30 110 99 50 11/10/16 14:30 110 22 99 11/10/16 14:13 103.2 111 30 169/79 99 Physical Exam INITIAL VITAL SIGNS: Reviewed by me GENERAL: The patient is well developed, moderate respiratory distress HEENT: Pupils equal, round, and reactive to light. EOMI. There is no scleral icterus. NECK: C-spine is soft and supple, there is no meningismus. There is no cervical lymphadenopathy. LUNGS: Diminished bilaterally with diffuse wheezing and coarse rhonchi auscultated in the bilateral lower lobe HEART: Tachycardic, no murmurs, clicks, rubs or gallops. ABDOMEN: Soft, non-tender, non-distended. There are bowel sounds in all four quadrants. No rebound or guarding. EXTREMITIES: Healing right foot also looking on the plantar aspect of the foot , there is no peripheral cyanosis or edema. No focal swelling or erythema. NEUROLOGICAL: The patient moves all four extremities with 5/5 strength. Cranial nerves II - XII are intact. Normal gait. Alert and oriented SKIN: There is no apparent rash or petechiae. HEME/LYMPHATIC: There is no evidence of excessive bruising or lymphedema. PSYCHIATRIC: The patient does not appear anxious or depressed. Result Diagram: 11/10/16 1410 11/10/16 1410 Results 24 hrs Laboratory Tests Test 11/10/16 14:10 11/10/16 14:20 11/10/16 15:08 White Blood Count 20.710^3/ul Red Blood Count 4.2410^6/ul Hemoglobin 11.4g/dl Hematocrit 35.1% Mean Corpuscular Volume 82.8fl Mean Corpuscular Hemoglobin 26.9pg Mean Corpuscular Hemoglobin Concent 32.5g/dl Red Cell Distribution Width 14.6% Platelet Count 06788^3/UL Mean Platelet Volume 8.8fl Neutrophils % 90.5% Lymphocytes % 5.4% Monocytes % 2.9% Eosinophils % 0.0% Basophils % 0.2% Nucleated Red Blood Cells % 0.0/100WBC Neutrophils # (Manual) 18.810^3/ul Lymphocytes # 1.110^3/ul Monocytes # 0.610^3/ul Eosinophils # 0.010^3/ul Basophils # 0.110^3/ul Nucleated Red Blood Cells # 0.010^3/ul Prothrombin Time 13.1Sec Prothrombin Time Ratio 1.0 INR International Normalized Ratio 0.99 Activated Partial Thromboplast Time 32.5Sec Sodium Level 131mmol/L Potassium Level 4.0mmol/L Chloride Level 93mmol/L Carbon Dioxide Level 30mmol/L Anion Gap 12 Blood Urea Nitrogen 15mg/dl Creatinine 1.02mg/dl Glucose Level 199mg/dl Lactic Acid Level 1.5mmol/L Calcium Level 9.7mg/dl Total Bilirubin 0.4mg/dl Direct Bilirubin 0.00mg/dl Indirect Bilirubin 0.4mg/dl Aspartate Amino Transf (AST/SGOT) 39IU/L Alanine Aminotransferase (ALT/SGPT) 43IU/L Alkaline Phosphatase 81IU/L Troponin I 0.025ng/ml B-Type Natriuretic Peptide 1390PG/ML Total Protein 8.2g/dl Albumin 4.6g/dl Globulin 3.60g/dl Albumin/Globulin Ratio 1.27 Urine Color YELLOW Urine Clarity SLIGHTLY CLOUDY Urine pH 7.0 Urine Specific [place] 1.012 Urine Ketones NEGATIVEmg/dL Urine Nitrite NEGATIVEmg/dL Urine Bilirubin NEGATIVEmg/dL Urine Urobilinogen NEGATIVEmg/dL Urine Leukocyte Esterase NEGATIVELeu/ul Urine Microscopic RBC 0/HPF Urine Microscopic WBC 2/HPF Urine Squamous Epithelial Cells FEW/HPF Urine Bacteria FEW/HPF Urine Hemoglobin NEGATIVEmg/dL Urine Glucose NEGATIVEmg/dL Urine Total Protein 2+mg/dl Blood Gas Specimen Source Blood arterial Arterial Blood Date Drawn 11/10/2016 3:15:07 PM Arterial Blood pH (Temp corrected) 7.369 Arterial Blood pCO2 (Temp correct) 49.8mmhg Arterial Blood pO2 (Temp corrected) 195.0mmHG Arterial Blood HCO3 28.1mmol/L Arterial Blood Base Excess 2.1mmol/L Arterial Blood Oxygen Saturation 98.8mmHG Jermain Test ACCEPTAB Arterial Blood Gas Puncture Site Right Radial Arterial Blood Carboxyhemoglobin 0.4% Arterial Blood Methemoglobin 0.3% Blood Gas A-a O2 Differential 105.5mmHg Oxyhemoglobin Percent 98.1% Total Hemoglobin 11.9g/dl Blood Gas Temperature 37.0C Blood Gas Respiration Rate 16.0 Blood Gas Actual Respiration Rate 20 Blood Gas Modality MASK - BIPAP FiO2 50.0% Blood Gas Pressure Support 10 Blood Gas IPAP/EPAP Ratio 15/5 Blood Gas Notified Whom MDA Blood Gas Notified Time 11/10/2016 3:20:41 PM Current Medications Medications (Trade) Dose Ordered Sig/Jose Guadalupe Route PRN Reason Start Time Stop Time Status Last Admin Dose Admin Albuterol (Proventil 0.5% (Neb)) 15 mg ONCE STAT INH 11/10/16 14:09 11/10/16 14:12 DC 11/10/16 14:21 Ipratropium Nubieber (Atrovent 0.02% (Neb)) 1 mg ONCE STAT INH 11/10/16 14:09 11/10/16 14:12 DC 11/10/16 14:21 Methylprednisolone Sodium Succinate (Solu-Medrol) 125 mg ONCE STAT IV 11/10/16 14:09 11/10/16 14:12 DC 11/10/16 14:16 Ondansetron HCl (Zofran Inj) 4 mg ONCE STAT IV 11/10/16 14:14 11/10/16 14:16 DC 11/10/16 14:16 Ondansetron HCl (Zofran Inj) 4 mg STK-MED ONCE .ROUTE 11/10/16 14:16 11/10/16 14:17 DC Morphine Sulfate (morphine) 6 mg ONCE ONCE IV 11/10/16 15:00 11/10/16 15:01 DC 11/10/16 15:02 Morphine Sulfate 6 mg 6 mg ONCE ONCE IV 11/10/16 15:00 11/10/16 15:01 DC Ceftriaxone Sodium 50 ml @ 100 mls/hr ONCE STAT IVPB 11/10/16 15:02 11/10/16 15:31 DC 11/10/16 15:25 Azithromycin 250 ml @ 250 mls/hr ONCE STAT IV 11/10/16 15:02 11/10/16 16:01 DC 11/10/16 16:38 Sodium Chloride (NS) 1,000 ml @ 1,000 mls/hr Q1H STAT IV 11/10/16 15:02 11/10/16 16:01 DC 11/10/16 15:19 Acetaminophen (Tylenol Tab) 1,000 mg ONCE STAT PO 11/10/16 15:13 11/10/16 15:14 DC 11/10/16 15:25 Procedures/MDM EKG: Rate/Rhythm: Sinus tachycardia QRS, ST, T-waves: [No changes consistent w/ acute ischemia] Impression: [No evidence of ischemia or arrhythmia] Chest X-ray 1V Interpreted by me: Soft Tissue: No acute abnormalities Bones: No acute abnormalities Mediastinum/Cardiac Silhouette/Lungs: Bilateral pneumonia This 61-year-old female presents to the ER for evaluation of shortness of breath. When I evaluated this patient she was febrile tachycardic. She was extremely short of breath and was tachypneic. This patient was placed on a BiPAP and I was given an in-line breathing treatment with albuterol, Atrovent and Solu-Medrol. A septic workup was initiated here in the emergency room which did reveal leukocytosis of greater than 20,000. This patient's chest x- ray does show bilateral infiltrates. Given this patient's fever, shortness of breath and cough with bilateral infiltrates this patient was treated for a community acquired pneumonia with Rocephin and azithromycin. The patient was not given 30 cc/kg of IV normal saline as she has mild signs of fluid overload on exam and pleural effusions on x-ray. The patient did have blood and urine cultures obtained prior to the administration of antibiotics. Given her respiratory failure she will be placed in for admission on the telemetry floor under the care of Dr. Crooks Critical Care: Excluding all billable procedures Time: 48 minutes Treatments/Evaluations: Close monitoring and treatment of unstable vital signs, cardiorespiratory, and neurologic status, while maintaining tight balance of fluid, respiratory, and cardiac interventions. Departure Diagnosis: Primary Impression: Sepsis Additional Impressions: Acute respiratory failure Bilateral pneumonia Condition: BAYLEE Bell DO Nov 10, 2016 16:47
[2016-11-10] MEDS ORDERED: ACETAMINOPHEN 325 MG TAB PO PRN ×2 (17:00→18:00)
[2016-11-10] MEDS ORDERED: ONDANSETRON 4 MG INJ IV PRN ×2 (17:00→18:00)
[2016-11-10] MEDS ORDERED: SOD CHLORIDE 0.45% 1,000 ML IV SCH (17:47)
[2016-11-10] MEDS ORDERED: NA PHOSPHATE/BIPHOS 133 ML ENEMA PR PRN (18:00)
[2016-11-10] MEDS ORDERED: NITROGLYCERIN (SL) 0.4 MG TAB SL PRN (18:00)
[2016-11-10] MEDS ORDERED: IPRATROPIUM (NEB) 0.5 MG/2.5 ML AMP NEB PRN (18:00)
[2016-11-10] MEDS ORDERED: ALBUTEROL/IPRATROPIUM (NEB) 3 ML AMP HHN PRN (18:00)
[2016-11-10] MEDS ORDERED: LORAZEPAM 2 MG INJ IV PRN (18:00)
[2016-11-10] MEDS ORDERED: hydrALAzine 20 MG INJ IV PRN (18:00)
[2016-11-10] MEDS ORDERED: morphine 2 MG INJ IV PRN (18:00)
[2016-11-10] MEDS ORDERED: MAGNESIUM HYDROXIDE 30ML CUP PO PRN (18:00)
[2016-11-10] MEDS ORDERED: HYDROCODONE/APAP (5/325) TAB PO PRN (18:00)
[2016-11-10] MEDS ORDERED: NACL 0.9% 3 ML SYG IV SCH (18:00)
[2016-11-10] MEDS ORDERED: INSULIN LISPRO 18 UNIT SC SCH (18:00)
[2016-11-10 18:40] VITALS: TEMP 99.2
[2016-11-10 19:18] VITALS: PULSE 91
[2016-11-10] MEDS ORDERED: VANCOMYCIN IV PER PHARMACY XX SCH (19:30)
--- NOTE | 2016-11-10 19:34 | HP ---
Date/Time of Note Date/Time of Note DATE: 11/10/16 TIME: 19:24 Assessment/Plan VTE Prophylaxis VTE Prophylaxis Intervention: heparin Assessment/Plan Chief Complaint/Hosp Course Assessment and plan: 61-year-old female with shortness of breath symptoms with the prior history of COPD, diabetes, hypertension, positive smoking history, with signs of sepsis secondary to pneumonia and COPD exacerbation. 1. Shortness of breath: Likely secondary to combination of COPD and pneumonia. -Check TSH A1c lipid panel, continue steroids, duo nebs, broad-spectrum antibiotics, Tylenol as needed pain and fevers. IV fluids as well for the sepsis -PT consult as well 2. Essential hypertension: Continue monitor for now continue as needed medication 3. Diabetes type 2, check A1c, continue sliding scale insulin 4. High cholesterol: Check lipid panel 5. GI prophylaxis: PPI Problems: HPI/ROS Admit Date/Time Admit Date/Time Hx of Present Illness 61-year-old female past medical history of COPD, uses home oxygen, diabetes type 2, hypertension, high cholesterol, who presents to the emergency room for evaluation of shortness of breath. This patient was brought in from home after her daughter found her and stated that the patient was extremely short of breath. This patient does have a history of COPD and is on 3 L of oxygen at home. According to the daughter the patient had increased difficulty in breathing and she called 911 and the patient was transported to the ER. The patient does state that she has shortness of breath, and does have a productive cough along with subjective fevers cough and continues to smoke. She states that she is having pain in the left lower quadrant of her abdomen as well. She came into the ER today she was found with fever of 102, white count was elevated at 20,000, and received antibiotics. Denied any upper or lower GI bleeding, no diarrhea or constipation, no headaches or dizziness. PMH/Family/Social Family History Significant Family History: no pertinent family hx Social History Alcohol Use: none Smoking Status: Current every day smoker (Half pack cigarettes a day for 40 years) Drug Use: none Exam/Review of Systems Vital Signs Vitals Vital Signs Date Time Temp Pulse Resp B/P Pulse Ox O2 Delivery O2 Flow Rate FiO2 11/10/16 18:40 99.2 98 21 132/54 96 Mask 10.0 11/10/16 14:30 50 Exam Exam GENERAL: The patient is well developed, answering questions properly, in mild distress but alert HEENT: Pupils equal, round, and reactive to light. EOMI. There is no scleral icterus. NECK: C-spine is soft and supple, there is no meningismus. There is no cervical lymphadenopathy. LUNGS: some diminished bilaterally with positive wheezing and coarse rhonchi auscultated in the bilateral lower lobe HEART: less tachycardic, no murmurs, clicks, rubs or gallops. ABDOMEN: Soft, non-tender, non-distended. There are bowel sounds in all four quadrants. No rebound or guarding. EXTREMITIES: Healing right foot also looking on the plantar aspect of the foot , there is no peripheral cyanosis or edema. No focal swelling or erythema. NEUROLOGICAL: The patient moves all four extremities with 5/5 strength. HEME/LYMPHATIC: There is no evidence of excessive bruising or lymphedema. PSYCHIATRIC: The patient does not appear anxious or depressed. Labs Result Diagram: 11/10/16 1410 11/10/16 1410 Medications Medications Current Medications Ondansetron HCl (Zofran Inj) 4 mg Q6H PRN IV NAUSEA AND/OR VOMITING; Start at 18:00; Status UNV Acetaminophen (Tylenol Tab) 650 mg Q6H PRN PO PAIN LEVEL 1-3 OR FEVER; Start at 18:00; Status UNV Acetaminophen/ Hydrocodone Bitart ([place] (5/325)) 1 tab Q6H PRN PO MODERATE PAIN LEVEL 4-6; Start 11/10/16 at 18:00; Status UNV Morphine Sulfate (morphine) 2 mg Q4H PRN IV SEVERE PAIN LEVEL 7-10; Start 11/10 at 18:00; Status UNV Docusate Sodium (Colace) 100 mg Q12H PRN PO CONSTIPATION; Start 11/10/16 at 18: 00; Status UNV Magnesium Hydroxide (Milk Of Mag) 30 ml DAILY PRN PO CONSTIPATION; Start at 18:00; Status UNV Sodium Biphosphate/ Sodium Phosphate (Fleet Enema) 133 ml DAILY PRN [place] CONSTIPATION; Start 11/10/16 at 18:00; Status UNV Heparin Sodium (Porcine) 5000 unit 5,000 unit Q12 SC ; Start 11/10/16 at 21:00; Status UNV Sodium Chloride (1/2 NS) 1,000 ml @ 75 mls/hr [id number] IV ; Start 11/10/16 at 17 :47; Status UNV Lorazepam 0.5 mg 0.5 mg Q6H PRN IV ANXIETY; Start 11/10/16 at 18:00; Status UNV Piperacillin Sod/ Tazobactam Sod (Zosyn 3.375gm/ 100 ml (Pmx)) 100 ml @ 200 mls /hr Q6 IVPB ; Start 11/10/16 at 18:00; Status UNV Hydralazine HCl (Apresoline) 10 mg Q6H PRN IV ELEVATED BLOOD PRESSURE; Start at 18:00; Status UNV Nitroglycerin (Nitroglycerin (Sl Tab) 0.4 Mg) 1 tab Q5M PRN SL ANGINA; Start at 18:00; Status UNV Amlodipine Besylate (Norvasc) 5 mg DAILY PO ; Start 11/11/16 at 09:00; Status UNV Aspirin (Aspirin) 81 mg DAILY PO ; Start 11/11/16 at 09:00; Status UNV Fluticasone Propionate (Flonase 0.05% Nasal) 1 spray DAILY NASAL ; Start at 09:00; Status UNV Furosemide (Lasix) 40 mg DAILY PO ; Start 11/11/16 at 09:00; Status UNV Insulin Glargine (Lantus) 30 unit BID SC ; Start 11/10/16 at 21:00; Status UNV Pantoprazole (Protonix Tab) 40 mg BID PO ; Start 11/10/16 at 21:00; Status UNV Paroxetine HCl (Paxil) 20 mg DAILY PO ; Start 11/11/16 at 09:00; Status UNV Miscellaneous Information 1,000 mg DAILY PO ; Start 11/11/16 at 09:00; Status UNV Miscellaneous Information 2 puff BID INH ; Start 11/10/16 at 21:00; Status UNV Miscellaneous Information 160 mg DAILY PO ; Start 11/11/16 at 09:00; Status UNV Miscellaneous Information 1 each DAILY PO ; Start 11/11/16 at 09:00; Status UNV Miscellaneous Information 1 each BID PO ; Start 11/10/16 at 21:00; Status UNV Nicotine (Nicoderm 21 Mg/ 24hr) 1 patch DAILY TRANSDERM ; Start 11/11/16 at 09: 00; Status UNV Miscellaneous Information (* Miscellaneous Pharmacy Order) Discontinue current oral sulfonylur... ONCE ONCE XX ; Start 11/10/16 at 18:00; Stop 11/10/16 at 18: 01; Status UNV Diagnostic Test (Pha) (Accu-Chek) 1 ea 02 XX ; Start 11/11/16 at 02:00; Status UNV Miscellaneous Information (* Miscellaneous Pharmacy Order) HYPOGLYCEMIA PROTOCOL w... ONCE ONCE XX ; Start 11/10/16 at 18:00; Stop 11/10/16 at 18:01; Status UNV Insulin Aspart (Novolog Insulin Pen) NOVOLOG *MILD* ALGORI... Q4 SC ; Start at 21:00; Status UNV Miscellaneous Information (* Miscellaneous Pharmacy Order) Discontinue all previ... ONCE ONCE XX ; Start 11/10/16 at 18:00; Stop 11/10/16 at 18:01; Status UNV MICHAEL HUBBARD Nov 10, 2016 19:34
[2016-11-10 20:10] VITALS: PULSE 92
[2016-11-10 20:43] VITALS: BP 137/63; RESP 17
[2016-11-10] MEDS: INSULIN ASPART [NOVOLOG] 3 ML PEN SC SCH (21:00)
[2016-11-10] MEDS: ALBUTEROL/IPRATROPIUM (NEB) 3 ML AMP HHN SCH (21:03)
[2016-11-10] MEDS ORDERED: INSULIN ASPART [NOVOLOG] 3 ML PEN SC ONE (21:30)
[2016-11-10 22:00] VITALS: Ht 167.6 cm; Wt 119.6 kg
[2016-11-10] MEDS ORDERED: VANCOMYCIN 2 GM in SOD CHLORIDE 0.9% 500 ML IVPB SCH (22:00)
[2016-11-10] MEDS ORDERED: METHYLPREDNISOLONE 125 MG INJ IV SCH (22:00)
[2016-11-10] MEDS: HEPARIN 5,000 UNIT/0.5 ML VIAL SC SCH (22:14)
[2016-11-10] MEDS: PANTOPRAZOLE (EC) 40 MG TAB PO SCH (22:14)
[2016-11-10] MEDS: SOD CHLORIDE 0.9% 1,000 ML IV SCH (22:25)
[2016-11-10] MEDS: FISH OIL 1,000 MG CAP PO SCH (22:30)
[2016-11-10] MEDS: INSULIN GLARGINE [LANtus] 3 ML PEN SC SCH (22:36)
[2016-11-11] VITALS (11 sets, daily range): BP systolic 123–140; BP diastolic 58–66; PULSE 78–90; RESP 16–20
[2016-11-11] MEDS: ALBUTEROL/IPRATROPIUM (NEB) 3 ML AMP HHN SCH ×5 (00:35→19:18)
[2016-11-11] MEDS: INSULIN ASPART [NOVOLOG] 3 ML PEN SC SCH ×9 (01:00→20:26)
[2016-11-11] MEDS: PIPER-TAZO 3.375 GM IV (PMX) 100 ML IVPB SCH ×6 (01:48→23:44)
[2016-11-11] MEDS: MOMETASONE 0.24 GM INHALER INH SCH ×3 (01:48→20:23)
[2016-11-11] MEDS ORDERED: ACCU-CHEK XX SCH ×2 (02:00)
[2016-11-11] MEDS ORDERED: INSULIN ASPART [NOVOLOG] 3 ML PEN SC ONE ×2 (02:30→06:00)
[2016-11-11] MEDS: ACCU-CHEK XX SCH (02:44)
[2016-11-11] MEDS ORDERED: PENDING SANTYL ORDER FOR WOUND CARE XX PRN (04:00)
[2016-11-11] MEDS: SOD CHLORIDE 0.9% 1,000 ML IV SCH ×2 (07:00→17:00)
[2016-11-11 07:47] LABS: ABNORMAL IP MESSAGE 1; BASOPHILS % 0.1 % (0.0-2.0); HEMATOCRIT 29.8 % (37.0-47.0); HEMOGLOBIN 9.1 g/dl (12.0-16.0); LYMPHOCYTES # 0.6 10^3/ul (0.8-2.9); LYMPHOCYTES % 4.2 % (15.0-51.0); MEAN CORPUSCULAR HEMOGLOBIN 25.9 pg (29.0-33.0); MEAN CORPUSCULAR HGB CONC 30.5 g/dl (32.0-37.0); MEAN CORPUSCULAR VOLUME 84.7 fl (82.0-101.0); MEAN PLATELET VOLUME 9.5 fl (7.4-10.4); MONOCYTE # 0.2 10^3/ul (0.3-0.9); MONOCYTES % 1.7 % (0.0-11.0); NEUTROPHILS % 93.2 % (39.0-77.0); PLATELET COUNT 319 10^3/UL (140-415); RED BLOOD COUNT 3.52 10^6/ul (4.20-5.40); RED CELL DISTRIBUTION WIDTH 14.8 % (11.5-14.5); WHITE BLOOD COUNT 13.2 10^3/ul (4.8-10.8)
[2016-11-11 07:54] LABS: POSITIVE DIFF @See below
[2016-11-11] MEDS ORDERED: INSULIN GLARGINE [LANtus] 3 ML PEN SC ONE (08:00)
[2016-11-11 08:01] LABS: CALCIUM 8.9 mg/dl (8.4-10.2); CREATININE 0.98 mg/dl (0.44-1.00); MAGNESIUM 1.9 mg/dl (1.7-2.5); PHOSPHORUS 3.5 mg/dl (2.5-4.9); POTASSIUM 4.6 mmol/L (3.5-5.1)
[2016-11-11] MEDS: FLUTICASONE 0.05% 16 GM NAS SPRAY NASAL SCH (08:42)
[2016-11-11] MEDS: ASPIRIN 81 MG TAB PO SCH (08:42)
[2016-11-11] MEDS: PANTOPRAZOLE (EC) 40 MG TAB PO SCH ×2 (08:42→20:22)
[2016-11-11] MEDS: FENOFIBRATE 145 MG TAB PO SCH (08:42)
[2016-11-11] MEDS: FISH OIL 1,000 MG CAP PO SCH ×2 (08:42→20:22)
[2016-11-11] MEDS: MULTIVITAMINS THERAPEUTIC TAB PO SCH (08:42)
[2016-11-11] MEDS: AMLODIPINE 5 MG TAB PO SCH (08:43)
[2016-11-11] MEDS: NICOTINE (21 MG/24 HR) PATCH TRANSDERM SCH (08:43)
[2016-11-11] MEDS: METHYLPREDNISOLONE 125 MG INJ IV SCH (08:44)
[2016-11-11] MEDS: ASCORBIC ACID 500 MG TAB PO SCH (08:44)
[2016-11-11] MEDS: INSULIN GLARGINE [LANtus] 3 ML PEN SC SCH (08:48)
[2016-11-11] MEDS: HEPARIN 5,000 UNIT/0.5 ML VIAL SC SCH ×2 (08:49→20:28)
[2016-11-11] MEDS ORDERED: FUROSEMIDE 40 MG TAB PO SCH (09:00)
[2016-11-11] MEDS: PAROXETINE 20 MG TAB PO SCH (09:08)
[2016-11-11 09:11] LABS: THYROID STIMULATING HORMONE 0.231 MIU/L (0.465-4.680)
[2016-11-11] MEDS: VANCOMYCIN 1.25 GM in SOD CHLORIDE 0.9% 250 ML IVPB SCH ×2 (11:00→23:44)
--- NOTE | 2016-11-11 11:34 | RADRPT ---
Echocardiogram Report Patient Name: KENISHA WOOTEN Gender: Female Date: 1955 Study Date: 11-Nov-2016 Brim Blocker: Dulce Snell [facility] Location: [id number] Ref. Physician: MICHAEL HUBBARD Quality: Adequate Procedures: Transthoracic echocardiogram with complete 2D, M-Mode, and doppler examination. Indications: Shortness of breath. 2D/M Mode Doppler Measurement Value Normal Ranges Measurement Value Normal Ranges LVIDd 2D 5.7 3.5 - 5.6 cm AV Peak Paulie 1.7 m/sec LVIDs 2D 3.0 2.1 - 4.1 cm AV Peak PG 11.6 mmHg LVPWd 2D 1.1 0.6 - 1.1 cm LVOT Peak Paulie 1.0 m/sec IVSd 2D 1.2 0.6 - 1.1 cm LVOT Peak PG 3.7 mmHg AoR Diam 2D 2.8 2.0 - 3.7 cm MV E Peak Paulie 0.8 m/sec EDV 2D 161.8 cm3 MV A Peak Paulie 0.9 m/sec ESV 2D 27.0 cm3 MV E/A 0.9 LA Dimen 2D 3.8 2.3 - 4.0 cm MV Decel Time 157 msec MV Decel Davie 5 MV E/A 0.9 TR Peak Paulie 2.9 m/sec TR Peak PG 32.5 mmHg RVSP 48.0 mmHg Findings Left Ventricle: Overall, normal left ventricular systolic function. Not all segments visualized. Mild concentric left ventricular hypertrophy. Ejection fraction is visually estimated at 60 %. Tissue Doppler/Mitral Doppler indices are consistent with impaired relaxation (Stage I diastolic dysfunction). Right Ventricle: Normal right ventricular size. Normal right ventricular systolic function. Left Atrium: The left atrium is normal in size. Right Atrium: The right atrium is normal in size. Mitral Valve: Normal appearance and function of the mitral valve with trace physiologic regurgitation. Aortic Valve: Normal appearance of the aortic valve. No significant aortic stenosis or insufficiency. Tricuspid Valve: Normal appearance of the tricuspid valve. Estimated peak PA systolic pressure 48 mmHg. There is mild tricuspid regurgitation. Pulmonic Valve: Normal pulmonic valve appearance. Pericardium: Normal pericardium with no significant pericardial effusion. Aorta: Normal aortic root. IVC: Dilated IVC without respiratory collapse consistent with elevated right atrial pressure. Conclusions 1.Overall, normal left ventricular systolic function. Not all segments visualized. Mild concentric left ventricular hypertrophy. Ejection fraction is visually estimated at 60 %. Tissue Doppler/Mitral Doppler indices are consistent with impaired relaxation (Stage I diastolic dysfunction). 2.Normal right ventricular size. Normal right ventricular systolic function. 3.The left atrium is normal in size. 4.The right atrium is normal in size. 5.Estimated peak PA systolic pressure 48 mmHg. There is mild tricuspid regurgitation. 6.No significant valvular stenosis or regurgitation seen of remaining visualized valves. 7.Normal pericardium with no significant pericardial effusion. Electronically Signed By: Otoniel Miller 11-Nov-2016 11:33:59 -0700 Patient Name: KENISHA WOOTEN Study Date: 11-Nov-[id number]
--- NOTE | 2016-11-11 15:05 | PN ---
Date/Time of Note Date/Time of Note DATE: 11/11/16 TIME: 14:41 Assessment/Plan VTE Prophylaxis VTE Prophylaxis Intervention: heparin Lines/Catheters IV [facility] Saline Lock Assessment/Plan Assessment/Plan 61-year-old female with: , diabetes, hypertension, 1. Respiratory distress, likely secondary to combination of COPD exacerbation and pneumonia, sepsis on admission. Continue steroids at lowest dose possible. Continue duo nebs every 6h scheduled and every 3h as needed shortness of breath , broad-spectrum antibiotics, decongestants w/ Mucinex DM. Tylenol as needed pain and fevers. 2. Essential hypertension: Continue Norvasc, lisinopril on hold. Also on Lasix for diuresis. 3. Diabetes type 2, A1c 8.5, continue moderate sliding scale insulin, also adjusted insulin regimen to ultra resistant regimen, patient on steroids which is worsening her hyperglycemia. Also she is reporting that she is on metformin which should be resumed. 4. Tobacco use: Nicotine patch in place. Patient needs to stop tobacco use given obstructive sleep apnea and COPD. 5. Hyperlipidemia: Low-cholesterol diet. 6. Gastritis/gastroesophageal reflux disease: Continue Protonix 7. Probable diastolic congestive heart failure: Continue Lasix Prophylaxis: PPI for GI prophylaxis and heparin subcu for DVT prophylaxis. Disposition: Pulmonary toilet, IV antibiotics, blood sugar control especially while on steroids. Subjective 24 Hr Interval Summary Free Text/Dictation Patient is oxygen dependent at home, on 2.5 L nasal cannula at baseline. She has been using up to 4 L lately and currently on 6 L nasal cannula, also on CPAP while sleeping and at night. She is still congested, blood sugars are elevated likely secondary to steroid therapy, Afebrile, vital signs stable, WBC better today. Exam/Review of Systems Vital Signs Vitals Vital Signs Date Time Temp Pulse Resp B/P Pulse Ox O2 Delivery O2 Flow Rate FiO2 11/11/16 12:50 82 20 95 Nasal Cannula 4.0 11/11/16 12:11 98.4 137/66 11/10/16 14:30 50 Intake and Output 11/10/16 11/10/16 11/11/16 15:00 23:00 07:00 Intake Total 1100 ml Output Total 900 ml Balance 200 ml Exam Constitutional: alert, obese, oriented, well developed Respiratory: congested cough, diminished breath sounds (Bilateral), other (On CPAP) Cardiovascular: nl pulses, regular rate and rhythm Gastrointestinal: non-tender, soft Musculoskeletal: nl extremities to inspection Extremities: normal pulses, other (No edema, clubbing or cyanosis) Neurological: [employer] II-XII intact, lethargic, nl mental status, nl speech Results Result Diagram: 11/11/16 0652 11/11/16 0652 Results 24 hrs Laboratory Tests Test 11/10/16 15:08 11/10/16 19:45 11/10/16 20:44 11/10/16 22:00 Blood Gas Specimen Source Blood arterial Arterial Blood Date Drawn 11/10/2016 3:15:07 PM Arterial Blood pH (Temp corrected) 7.369 Arterial Blood pCO2 (Temp correct) 49.8 H Arterial Blood pO2 (Temp corrected) 195.0 H Arterial Blood HCO3 28.1 H Arterial Blood Base Excess 2.1 Arterial Blood Oxygen Saturation 98.8 H Jermain Test ACCEPTAB Arterial Blood Gas Puncture Site Right Radial Arterial Blood Carboxyhemoglobin 0.4 Arterial Blood Methemoglobin 0.3 Blood Gas A-a O2 Differential 105.5 H Oxyhemoglobin Percent 98.1 Total Hemoglobin 11.9 L Blood Gas Temperature 37.0 Blood Gas Respiration Rate 16.0 Blood Gas Actual Respiration Rate 20 Blood Gas Modality MASK - BIPAP FiO2 50.0 Blood Gas Pressure Support 10 Blood Gas IPAP/EPAP Ratio 15/5 Blood Gas Notified Whom MDA Blood Gas Notified Time 11/10/2016 3:20:41 PM Lactic Acid Level 2.5 *H 1.1 Bedside Glucose 362 H Test 11/11/16 01:00 11/11/16 02:01 11/11/16 05:33 11/11/16 06:52 Lactic Acid Level 1.0 Bedside Glucose 448 *H 413 *H White Blood Count 13.2 #H Red Blood Count 3.52 L Hemoglobin 9.1 #L Hematocrit 29.8 L Mean Corpuscular Volume 84.7 Mean Corpuscular Hemoglobin 25.9 L Mean Corpuscular Hemoglobin Concent 30.5 L Red Cell Distribution Width 14.8 H Platelet Count 319 Mean Platelet Volume 9.5 Neutrophils % 93.2 H Lymphocytes % 4.2 L Monocytes % 1.7 Eosinophils % 0.0 Basophils % 0.1 Nucleated Red Blood Cells % 0.0 Neutrophils # (Manual) 12.3 H Lymphocytes # 0.6 L Monocytes # 0.2 L Eosinophils # 0.0 Basophils # 0.0 Nucleated Red Blood Cells # 0.0 Sodium Level 136 Potassium Level 4.6 Chloride Level 95 L Carbon Dioxide Level 28 Anion Gap 18 H Blood Urea Nitrogen 22 H Creatinine 0.98 Glucose Level 420 #*H Hemoglobin A1c 8.5 H Calcium Level 8.9 Phosphorus Level 3.5 Magnesium Level 1.9 Triglycerides Level 167 H Cholesterol Level 170 LDL Cholesterol, Calculated 109 HDL Cholesterol 28 L Cholesterol/HDL Ratio 6.0 Thyroid Stimulating Hormone (TSH) 0.231 L Test 11/11/16 08:28 11/11/16 12:20 Bedside Glucose 417 *H 406 *H Medications Medications Current Medications Ondansetron HCl (Zofran Inj) 4 mg Q6H PRN IV NAUSEA AND/OR VOMITING; Start at 18:00 Acetaminophen (Tylenol Tab) 650 mg Q6H PRN PO PAIN LEVEL 1-3 OR FEVER; Start at 18:00 Acetaminophen/ Hydrocodone Bitart ([place] (5/325)) 1 tab Q6H PRN PO MODERATE PAIN LEVEL 4-6; Start 11/10/16 at 18:00 Morphine Sulfate (morphine) 2 mg Q4H PRN IV SEVERE PAIN LEVEL 7-10; Start 11/10 at 18:00 Docusate Sodium (Colace) 100 mg Q12H PRN PO CONSTIPATION; Start 11/10/16 at 18: 00 Magnesium Hydroxide (Milk Of Mag) 30 ml DAILY PRN PO CONSTIPATION; Start at 18:00 Sodium Biphosphate/ Sodium Phosphate (Fleet Enema) 133 ml DAILY PRN [place] CONSTIPATION; Start 11/10/16 at 18:00 Heparin Sodium (Porcine) (Heparin (5000 Units/0.5 ml)) 5,000 unit Q12 SC Last administered on 11/11/16 08:49; Admin Dose 5,000 UNIT; Start 11/10/16 at 21:00 Lorazepam 0.5 mg 0.5 mg Q6H PRN IV ANXIETY; Start 11/10/16 at 18:00 Piperacillin Sod/ Tazobactam Sod (Zosyn 3.375gm/ 100 ml (Pmx)) 100 ml @ 200 mls /hr Q6 IVPB Last administered on 11/11/16 11:28; Admin Dose 200 MLS/HR; Start 11/10/16 at 18:00 Hydralazine HCl (Apresoline) 10 mg Q6H PRN IV ELEVATED BLOOD PRESSURE; Start at 18:00 Nitroglycerin (Nitroglycerin (Sl Tab) 0.4 Mg) 1 tab Q5M PRN SL ANGINA; Start at 18:00 Amlodipine Besylate (Norvasc) 5 mg DAILY PO Last administered on 11/11/16 08: 43; Admin Dose 5 MG; Start 11/11/16 at 09:00 Aspirin (Aspirin) 81 mg DAILY PO Last administered on 11/11/16 08:42; Admin Dose 81 MG; Start 11/11/16 at 09:00 Fluticasone Propionate (Flonase 0.05% Nasal) 1 spray DAILY NASAL Last administered on 11/11/16 08:42; Admin Dose 1 SPRAY; Start 11/11/16 at 09:00 Furosemide (Lasix) 40 mg DAILY PO Last administered on 11/11/16 08:44; Admin Dose 40 MG; Start 11/11/16 at 09:00 Insulin Glargine (Lantus) 30 unit BID SC Last administered on 11/11/16 08:48; Admin Dose 30 UNIT; Start 11/10/16 at 21:00 Pantoprazole (Protonix Tab) 40 mg BID PO Last administered on 11/11/16 08:42; Admin Dose 40 MG; Start 11/10/16 at 21:00 Paroxetine HCl (Paxil) 20 mg DAILY PO Last administered on 11/11/16 09:08; Admin Dose 20 MG; Start 11/11/16 at 09:00 Ascorbic Acid (Vitamin C) 1,000 mg DAILY PO Last administered on 11/11/16 08: 44; Admin Dose 1,000 MG; Start 11/11/16 at 09:00 Mometasone Furoate (Asmanex) 1 puff BID INH Last administered on 11/11/16 08: 42; Admin Dose 1 PUFF; Start 11/10/16 at 23:00 Fenofibrate (Tricor) 145 mg DAILY PO Last administered on 11/11/16 08:42; Admin Dose 145 MG; Start 11/11/16 at 09:00 Multivitamins Therapeutic (Theragran) 1 tab DAILY PO Last administered on 08:42; Admin Dose 1 TAB; Start 11/11/16 at 09:00 Fish Oil (Fish Oil) 1,000 mg BID PO Last administered on 11/11/16 08:42; Admin Dose 1,000 MG; Start 11/10/16 at 22:30 Nicotine (Nicoderm 21 Mg/ 24hr) 1 patch DAILY TRANSDERM Last administered on 08:43; Admin Dose 1 PATCH; Start 11/11/16 at 09:00 Insulin Aspart NOVOLOG *MILD* ALGORI... Q4 SC Last administered on 11/11/16 12 :27; Admin Dose 5 UNIT; Start 11/10/16 at 21:00 Sodium Chloride (NS) 1,000 ml @ 100 mls/hr Q10H IV Last administered on 22:25; Admin Dose 100 MLS/HR; Start 11/10/16 at 21:00; Stop 11/11/16 at 22: 00 Diagnostic Test (Pha) 1 ea 1 ea 02 XX Last administered on 11/11/16 02:44; Admin Dose 1 EA; Start 11/11/16 at 02:00 Vancomycin HCl/ Sodium Chloride (Vancocin/NS) 250 ml @ 83.333 mls/ hr Q12H IVPB Last administered on 11/11/16 11:00; Admin Dose 83.333 MLS/HR; Start at 11:00 Miscellaneous Information (Pending Santyl Order For Wound Care) This patient gaspar... PRN PRN XX WOUND CARE; Start 11/11/16 at 04:00 Methylprednisolone Sodium Succinate (Solu-Medrol) 60 mg DAILY IV Last administered on 11/11/16 08:44; Admin Dose 60 MG; Start 11/11/16 at 09:00 Miscellaneous Information (*Rx Drug Level Order Reminder*) VANCO TROUGH @ 1, 000 ON... ONCE ONCE XX ; Start 11/12/16 at 10:00; Stop 11/12/16 at 10:01 EVELINA MARTINES Nov 11, 2016 14:51
[2016-11-11] MEDS ORDERED: GLUCAGON 1 MG INJ IM PRN (16:00)
[2016-11-11] MEDS ORDERED: DEXTROSE 50% 50 ML SYRINGE IV PRN ×2 (16:00)
[2016-11-11] MEDS ORDERED: GLUCOSE GEL 15 GRAM TUBE BUCCAL PRN (16:00)
[2016-11-11] MEDS ORDERED: GLUCOSE GEL 15 GRAM TUBE PO PRN ×2 (16:00)
[2016-11-11 16:52] LABS: CK-MB 5.42 ng/ml (0.0-2.4)
[2016-11-11 16:58] LABS: TROPONIN-I 0.127 ng/ml (0.00-0.12)
[2016-11-11] MEDS ORDERED: ASPIRIN (EC) 325 MG TAB PO ONE (17:30)
[2016-11-11] MEDS ORDERED: FUROSEMIDE 20 MG INJ IV ONE (17:30)
[2016-11-11] MEDS: metFORMIN 500 MG TAB PO SCH (17:32)
[2016-11-11] MEDS ORDERED: INSULIN GLARGINE [LANtus] 3 ML PEN SC SCH (20:00)
[2016-11-11] MEDS: GUAIFENESIN/DM (SR) TAB PO SCH (20:22)
[2016-11-11] MEDS: DOCUSATE SODIUM 100 MG CAP PO PRN (20:22)
[2016-11-11 22:57] LABS: CK-MB 6.14 ng/ml (0.0-2.4); TROPONIN-I 0.122 ng/ml (0.00-0.12)
[2016-11-12] VITALS (13 sets, daily range): BP systolic 130–162; BP diastolic 61–78; PULSE 76–93; RESP 17–24
[2016-11-12] MEDS: ALBUTEROL/IPRATROPIUM (NEB) 3 ML AMP HHN SCH ×5 (01:17→19:42)
[2016-11-12] MEDS: ACCU-CHEK XX SCH (02:10)
[2016-11-12] MEDS: PIPER-TAZO 3.375 GM IV (PMX) 100 ML IVPB SCH ×3 (05:43→17:19)
[2016-11-12] MEDS: ALBUTEROL/IPRATROPIUM (NEB) 3 ML AMP HHN PRN ×2 (05:54→23:59)
[2016-11-12] MEDS: FISH OIL 1,000 MG CAP PO SCH ×2 (08:22→20:34)
[2016-11-12] MEDS: metFORMIN 500 MG TAB PO SCH ×2 (08:23→17:19)
[2016-11-12] MEDS: HEPARIN 5,000 UNIT/0.5 ML VIAL SC SCH ×2 (08:23→20:41)
[2016-11-12] MEDS: ASCORBIC ACID 500 MG TAB PO SCH (08:24)
[2016-11-12] MEDS: ASPIRIN 81 MG TAB PO SCH (08:24)
[2016-11-12 08:25] LABS: BASOPHILS % 0.1 % (0.0-2.0); EOSINOPHILS # 0.1 10^3/ul (0.0-0.5); EOSINOPHILS % 0.3 % (0.0-7.0); HEMATOCRIT 30.9 % (37.0-47.0); HEMOGLOBIN 9.3 g/dl (12.0-16.0); LYMPHOCYTES # 1.4 10^3/ul (0.8-2.9); LYMPHOCYTES % 8.7 % (15.0-51.0); MEAN CORPUSCULAR HEMOGLOBIN 25.8 pg (29.0-33.0); MEAN CORPUSCULAR HGB CONC 30.1 g/dl (32.0-37.0); MEAN CORPUSCULAR VOLUME 85.6 fl (82.0-101.0); MEAN PLATELET VOLUME 9.6 fl (7.4-10.4); MONOCYTE # 0.9 10^3/ul (0.3-0.9); MONOCYTES % 5.6 % (0.0-11.0); NEUTROPHILS % 84.4 % (39.0-77.0); PLATELET COUNT 339 10^3/UL (140-415); RED BLOOD COUNT 3.61 10^6/ul (4.20-5.40); WHITE BLOOD COUNT 15.8 10^3/ul (4.8-10.8)
[2016-11-12] MEDS: MULTIVITAMINS THERAPEUTIC TAB PO SCH (08:25)
[2016-11-12] MEDS: AMLODIPINE 5 MG TAB PO SCH (08:29)
[2016-11-12] MEDS: FUROSEMIDE 40 MG INJ IV SCH (08:29)
[2016-11-12] MEDS: PANTOPRAZOLE (EC) 40 MG TAB PO SCH ×2 (08:29→20:34)
[2016-11-12] MEDS: MOMETASONE 0.24 GM INHALER INH SCH ×2 (08:30→20:37)
[2016-11-12] MEDS: NICOTINE (21 MG/24 HR) PATCH TRANSDERM SCH (08:30)
[2016-11-12] MEDS: FLUTICASONE 0.05% 16 GM NAS SPRAY NASAL SCH (08:31)
[2016-11-12] MEDS: GUAIFENESIN/DM (SR) TAB PO SCH ×2 (08:31→20:34)
[2016-11-12] MEDS: METHYLPREDNISOLONE 125 MG INJ IV SCH (08:31)
[2016-11-12] MEDS: FENOFIBRATE 145 MG TAB PO SCH (08:32)
[2016-11-12] MEDS: PAROXETINE 20 MG TAB PO SCH (08:32)
[2016-11-12] MEDS: INSULIN ASPART [NOVOLOG] 3 ML PEN SC SCH ×7 (08:34→20:42)
[2016-11-12 08:49] LABS: CALCIUM 9.5 mg/dl (8.4-10.2); CREATININE 1.04 mg/dl (0.44-1.00); POTASSIUM 4.7 mmol/L (3.5-5.1)
[2016-11-12 08:57] LABS: CK-MB 5.61 ng/ml (0.0-2.4); TROPONIN-I 0.085 ng/ml (0.00-0.12)
[2016-11-12] MEDS: VANCOMYCIN 1.25 GM in SOD CHLORIDE 0.9% 250 ML IVPB SCH ×2 (10:38→23:32)
[2016-11-12] MEDS: DOCUSATE SODIUM 100 MG CAP PO PRN (10:46)
[2016-11-12] MEDS ORDERED: MAGNESIUM SULFATE 2 GM/50 ML 50 ML IVPB ONE (11:00)
--- NOTE | 2016-11-12 11:00 | CONS ---
Date/Time of Note Date/Time of Note DATE: 11/12/16 TIME: 10:53 Assessment/Plan Assessment/Plan Additional Assessment/Plan COPD exacerbation SIRS Mild acute decompensated diastolic congestive heart failure Preserved ejection fraction Mildly elevated troponin Respiratory failure Obstructive sleep apnea Morbid obesity Hypertension Active tobacco use Diabetes -Patient with mildly elevated troponin in essence trending down. Likely multifactorial including secondary to COPD exacerbation and respiratory failure. Would continue aspirin therapy, statin therapy if no complication, would hold off on beta-mario given active COPD exacerbation. Continue oxygen supplementation as required. If respiratory status continues to improve, would recommend switching Lasix to p.o. in the next 1-2 days. Consultation Date/Type/Reason Admit Date/Time Type of Consultation: cv Reason for Consultation Elevated troponin Hx of Present Illness This is a 61-year-old female with past medical history of COPD with active tobacco use, obstructive sleep apnea on CPAP, diabetes, hypertension, morbid obesity who presented with progressive worsening shortness of breath of the past 3 or 4 days. This was associated with fevers, chills and cough which was mildly productive. Yesterday, patient with increased shortness of breath and sharp chest discomfort. Chest discomfort was exacerbated by deep breathing. Troponins were drawn and was mildly elevated and for this reason cardiology consultation was requested. She denies any current chest discomfort. Shortness of breath is better today compared to yesterday. She denies any abdominal pain, nausea. 12 point review of systems was performed with all pertinent positives and negatives mentioned above and all else is negative Past Medical History COPD Obstructive sleep apnea Medical History: congestive heart failure, diabetes, hypertension Family History Significant Family History: no pertinent family hx Social History Alcohol Use: none Smoking Status: Current every day smoker Drug Use: none Exam/Review of Systems Vital Signs Vitals Vital Signs Date Time Temp Pulse Resp B/P Pulse Ox O2 Delivery O2 Flow Rate FiO2 11/12/16 09:26 6.0 11/12/16 08:09 91 11/12/16 08:00 Nasal Cannula 11/12/16 05:54 24 93 11/12/16 04:00 98.0 139/61 11/10/16 14:30 50 Intake and Output 11/11/16 11/11/16 11/12/16 15:00 23:00 07:00 Intake Total 100 ml 1200 ml 1250 ml Balance 100 ml 1200 ml 1250 ml Exam On CPAP, dyspneic with extensively speaking Constitutional: alert, obese, oriented Head: normocephalic Respiratory: other (Coarse breath sounds bilaterally, no wheezing) Cardiovascular: other (S1-S2 heard), regular rate and rhythm Gastrointestinal: bowel sounds, non-tender, soft Extremities: edema, other (Bilateral lower extremity bandages) Results Result Diagram: 11/12/16 0637 11/12/16 0637 Results 24 hrs Laboratory Tests Test 11/11/16 12:20 11/11/16 16:06 11/11/16 17:16 11/11/16 20:21 Bedside Glucose 406 *H 429 *H 401 *H Creatine Kinase 335 H Creatine Kinase Index 1.6 Creatinine Kinase MB (Mass) 5.42 H Troponin I 0.127 *H Test 11/11/16 22:13 11/12/16 02:07 11/12/16 06:37 11/12/16 06:40 Creatine Kinase 327 H 275 H Creatine Kinase Index 1.9 2.0 Creatinine Kinase MB (Mass) 6.14 H 5.61 H Troponin I 0.122 *H 0.085 Bedside Glucose 287 H White Blood Count 15.8 H Red Blood Count 3.61 L Hemoglobin 9.3 L Hematocrit 30.9 L Mean Corpuscular Volume 85.6 Mean Corpuscular Hemoglobin 25.8 L Mean Corpuscular Hemoglobin Concent 30.1 L Red Cell Distribution Width 15.0 H Platelet Count 339 Mean Platelet Volume 9.6 Neutrophils % 84.4 H Lymphocytes % 8.7 L Monocytes % 5.6 Eosinophils % 0.3 Basophils % 0.1 Nucleated Red Blood Cells % 0.0 Neutrophils # (Manual) 13 H Lymphocytes # 1.4 Monocytes # 0.9 Eosinophils # 0.1 Basophils # 0.0 Nucleated Red Blood Cells # 0.0 Sodium Level 137 Potassium Level 4.7 Chloride Level 97 Carbon Dioxide Level 30 Anion Gap 15 Blood Urea Nitrogen 23 H Creatinine 1.04 H Glucose Level 228 #H Calcium Level 9.5 Magnesium Level 1.8 Test 11/12/16 07:36 11/12/16 09:43 Bedside Glucose 221 H Vancomycin Level Trough 15.1 Medications Medications Current Medications Ondansetron HCl (Zofran Inj) 4 mg Q6H PRN IV NAUSEA AND/OR VOMITING; Start at 18:00 Acetaminophen (Tylenol Tab) 650 mg Q6H PRN PO PAIN LEVEL 1-3 OR FEVER Last administered on 11/12/16 04:29; Admin Dose 650 MG; Start 11/10/16 at 18:00 Acetaminophen/ Hydrocodone Bitart ([place] (5/325)) 1 tab Q6H PRN PO MODERATE PAIN LEVEL 4-6; Start 11/10/16 at 18:00 Morphine Sulfate (morphine) 2 mg Q4H PRN IV SEVERE PAIN LEVEL 7-10; Start 11/10 at 18:00 Docusate Sodium (Colace) 100 mg Q12H PRN PO CONSTIPATION Last administered on 10:46; Admin Dose 100 MG; Start 11/10/16 at 18:00 Magnesium Hydroxide (Milk Of Mag) 30 ml DAILY PRN PO CONSTIPATION; Start at 18:00 Sodium Biphosphate/ Sodium Phosphate (Fleet Enema) 133 ml DAILY PRN [place] CONSTIPATION; Start 11/10/16 at 18:00 Heparin Sodium (Porcine) (Heparin (5000 Units/0.5 ml)) 5,000 unit Q12 SC Last administered on 11/12/16 08:23; Admin Dose 5,000 UNIT; Start 11/10/16 at 21:00 Lorazepam 0.5 mg 0.5 mg Q6H PRN IV ANXIETY; Start 11/10/16 at 18:00 Piperacillin Sod/ Tazobactam Sod (Zosyn 3.375gm/ 100 ml (Pmx)) 100 ml @ 200 mls /hr Q6 IVPB Last administered on 11/12/16 05:43; Admin Dose 200 MLS/HR; Start 11/10/16 at 18:00 Hydralazine HCl (Apresoline) 10 mg Q6H PRN IV ELEVATED BLOOD PRESSURE; Start at 18:00 Nitroglycerin (Nitroglycerin (Sl Tab) 0.4 Mg) 1 tab Q5M PRN SL ANGINA; Start at 18:00 Amlodipine Besylate (Norvasc) 5 mg DAILY PO Last administered on 11/12/16 08: 29; Admin Dose 5 MG; Start 11/11/16 at 09:00 Aspirin (Aspirin) 81 mg DAILY PO Last administered on 11/12/16 08:24; Admin Dose 81 MG; Start 11/11/16 at 09:00 Fluticasone Propionate (Flonase 0.05% Nasal) 1 spray DAILY NASAL Last administered on 11/12/16 08:31; Admin Dose 1 SPRAY; Start 11/11/16 at 09:00 Pantoprazole (Protonix Tab) 40 mg BID PO Last administered on 11/12/16 08:29; Admin Dose 40 MG; Start 11/10/16 at 21:00 Paroxetine HCl (Paxil) 20 mg DAILY PO Last administered on 11/12/16 08:32; Admin Dose 20 MG; Start 11/11/16 at 09:00 Ascorbic Acid (Vitamin C) 1,000 mg DAILY PO Last administered on 11/12/16 08: 24; Admin Dose 1,000 MG; Start 11/11/16 at 09:00 Mometasone Furoate (Asmanex) 1 puff BID INH Last administered on 11/12/16 08: 30; Admin Dose 1 PUFF; Start 11/10/16 at 23:00 Fenofibrate (Tricor) 145 mg DAILY PO Last administered on 11/12/16 08:32; Admin Dose 145 MG; Start 11/11/16 at 09:00 Multivitamins Therapeutic (Theragran) 1 tab DAILY PO Last administered on 08:25; Admin Dose 1 TAB; Start 11/11/16 at 09:00 Fish Oil (Fish Oil) 1,000 mg BID PO Last administered on 11/12/16 08:22; Admin Dose 1,000 MG; Start 11/10/16 at 22:30 Nicotine (Nicoderm 21 Mg/ 24hr) 1 patch DAILY TRANSDERM Last administered on 08:30; Admin Dose 1 PATCH; Start 11/11/16 at 09:00 Diagnostic Test (Pha) 1 ea 1 ea 02 XX Last administered on 11/12/16 02:10; Admin Dose 1 EA; Start 11/11/16 at 02:00 Vancomycin HCl/ Sodium Chloride (Vancocin/NS) 250 ml @ 83.333 mls/ hr Q12H IVPB Last administered on 11/12/16 10:38; Admin Dose 83.333 MLS/HR; Start at 11:00 [facility] This patient gaspar... PRN PRN XX WOUND CARE; Start 11/11/16 at 04:00 Methylprednisolone Sodium Succinate (Solu-Medrol) 60 mg DAILY IV Last administered on 11/12/16 08:31; Admin Dose 60 MG; Start 11/11/16 at 09:00 Insulin Glargine (Lantus) 36 unit DAILY@20 SC Last administered on 11/11/16 20 :27; Admin Dose 36 UNIT; Start 11/11/16 at 20:00 Miscellaneous Information 1 ea NOTE XX ; Start 11/11/16 at 16:00 Glucose (Glutose) 15 gm Q15M PRN PO DECREASED GLUCOSE; Start 11/11/16 at 16:00 Glucose (Glutose) 22.5 gm Q15M PRN PO DECREASED GLUCOSE; Start 11/11/16 at 16: 00 Dextrose (D50w Syringe) 25 ml Q15M PRN IV DECREASED GLUCOSE; Start 11/11/16 at 16:00 Dextrose (D50w Syringe) 50 ml Q15M PRN IV DECREASED GLUCOSE; Start 11/11/16 at 16:00 Glucagon (Glucagen) 1 mg Q15M PRN IM DECREASED GLUCOSE; Start 11/11/16 at 16:00 Glucose (Glutose) 15 gm Q15M PRN BUCCAL DECREASED GLUCOSE; Start 11/11/16 at 16 :00 Guaifenesin/ Dextromethorphan (Mucinex Dm) 1 tab BID PO Last administered on 08:31; Admin Dose 1 TAB; Start 11/11/16 at 21:00 Furosemide (Lasix) 40 mg DAILY IV Last administered on 11/12/16 08:29; Admin Dose 40 MG; Start 11/12/16 at 09:00 Procedures Procedures ECG done this morning demonstrates sinus rhythm at 77 bpm, QRS 108 ms, nonspecific T-wave abnormalities Otoniel Miller DO Nov 12, 2016 11:00
--- NOTE | 2016-11-12 11:24 | PN ---
Date/Time of Note Date/Time of Note DATE: 11/12/16 TIME: 11:17 Assessment/Plan VTE Prophylaxis VTE Prophylaxis Intervention: heparin Lines/Catheters IV [facility] Saline Lock Urinary Cath still in place: No Assessment/Plan Assessment/Plan 61-year-old female with: , diabetes, hypertension, 1. Respiratory distress, likely secondary to combination of COPD exacerbation and pneumonia, sepsis on admission. Slightly improved, still requiring 5 to 6 L nasal cannula. Continue steroids at lowest dose possible. Continue duo nebs every 6h scheduled and every 3h as needed shortness of breath , broad-spectrum antibiotics, decongestants w/ Mucinex DM. Tylenol as needed pain and fevers. Continue CPAP 2. Essential hypertension: Continue Norvasc, lisinopril on hold. Also on Lasix for diuresis. 3. Diabetes type 2, A1c 8.5, continue moderate sliding scale insulin, also adjusted insulin regimen to ultra resistant regimen, patient on steroids which is worsening her hyperglycemia. Solu-Medrol decreased to 40 mg IV daily, metformin resumed. Continue current insulin regimen. 4. Tobacco use: Nicotine patch in place. Patient needs to stop tobacco use given obstructive sleep apnea and COPD. 5. Hyperlipidemia: Low-cholesterol diet. 6. Gastritis/gastroesophageal reflux disease: Continue Protonix 7. Probable diastolic congestive heart failure: Continue Lasix, changed to IV for another 24 hours and plan to switch back to oral Prophylaxis: PPI for GI prophylaxis and Heparin subcu for DVT prophylaxis. Disposition: Pulmonary toilet, IV antibiotics, diuresis, blood sugar control especially while on lower dose of steroids. Subjective 24 Hr Interval Summary Free Text/Dictation Patient feels a little better this morning, she is CPAP dependent at night and while sleeping. She is on baseline 2.5 L nasal cannula. Currently she is requiring between 5 and 6 L nasal cannula. Blood glucose better with low-dose of Solu-Medrol and increased dose of insulin regimen. No fevers Appreciate recommendations from cardiology, patient on diuresis. Exam/Review of Systems Vital Signs Vitals Vital Signs Date Time Temp Pulse Resp B/P Pulse Ox O2 Delivery O2 Flow Rate FiO2 11/12/16 09:26 6.0 11/12/16 08:09 91 11/12/16 08:00 Nasal Cannula 11/12/16 05:54 24 93 11/12/16 04:00 98.0 139/61 8/15/17 14:30 50 Intake and Output 11/11/16 11/11/16 11/12/16 15:00 23:00 07:00 Intake Total 100 ml 1200 ml 1250 ml Balance 100 ml 1200 ml 1250 ml Exam Constitutional: alert, obese (Morbid), oriented Respiratory: congested cough, diminished breath sounds (Bases bilaterally otherwise clear to auscultation), other (No wheezing and uses CPAP at night and was sleeping) Cardiovascular: nl pulses, regular rate and rhythm Gastrointestinal: soft, tender (Epigastric, reproducible) Musculoskeletal: other (Chronic lymphedema), swelling (Improved) Extremities: normal pulses 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3 L Hematocrit 30.9 L Mean Corpuscular Volume 85.6 Mean Corpuscular Hemoglobin 25.8 L Mean Corpuscular Hemoglobin Concent 30.1 L Red Cell Distribution Width 15.0 H Platelet Count 339 Mean Platelet Volume 9.6 Neutrophils % 84.4 H Lymphocytes % 8.7 L Monocytes % 5.6 Eosinophils % 0.3 Basophils % 0.1 Nucleated Red Blood Cells % 0.0 Neutrophils # (Manual) 13 H Lymphocytes # 1.4 Monocytes # 0.9 Eosinophils # 0.1 Basophils # 0.0 Nucleated Red Blood Cells # 0.0 Sodium Level 137 Potassium Level 4.7 Chloride Level 97 Carbon Dioxide Level 30 Anion Gap 15 Blood Urea Nitrogen 23 H Creatinine 1.04 H Glucose Level 228 #H Calcium Level 9.5 Magnesium Level 1.8 Test 11/12/16 07:36 11/12/16 09:43 Bedside Glucose 221 H Vancomycin Level Trough 15.1 Medications Medications Current Medications Ondansetron HCl (Zofran Inj) 4 mg Q6H PRN IV NAUSEA AND/OR VOMITING; Start at 18:00 Acetaminophen (Tylenol Tab) 650 mg Q6H PRN PO PAIN LEVEL 1-3 OR FEVER Last administered on 11/12/16 04:29; Admin Dose 650 MG; Start 11/10/16 at 18:00 Acetaminophen/ Hydrocodone Bitart ([place] (5/325)) 1 tab Q6H PRN PO MODERATE PAIN LEVEL 4-6; Start 11/10/16 at 18:00 Morphine Sulfate (morphine) 2 mg Q4H PRN IV SEVERE PAIN LEVEL 7-10; Start 11/10 at 18:00 Docusate Sodium (Colace) 100 mg Q12H PRN PO CONSTIPATION Last administered on 10:46; Admin Dose 100 MG; Start 11/10/16 at 18:00 Magnesium Hydroxide (Milk Of Mag) 30 ml DAILY PRN PO CONSTIPATION; Start at 18:00 Sodium Biphosphate/ Sodium Phosphate (Fleet Enema) 133 ml DAILY PRN [place] CONSTIPATION; Start 11/10/16 at 18:00 Heparin Sodium (Porcine) (Heparin (5000 Units/0.5 ml)) 5,000 unit Q12 SC Last administered on 11/12/16 08:23; Admin Dose 5,000 UNIT; Start 11/10/16 at 21:00 Lorazepam 0.5 mg 0.5 mg Q6H PRN IV ANXIETY; Start 11/10/16 at 18:00 Piperacillin Sod/ Tazobactam Sod (Zosyn 3.375gm/ 100 ml (Pmx)) 100 ml @ 200 mls /hr Q6 IVPB Last administered on 11/12/16 05:43; Admin Dose 200 MLS/HR; Start 11/10/16 at 18:00 Hydralazine HCl (Apresoline) 10 mg Q6H PRN IV ELEVATED BLOOD PRESSURE; Start at 18:00 Nitroglycerin (Nitroglycerin (Sl Tab) 0.4 Mg) 1 tab Q5M PRN SL ANGINA; Start at 18:00 Amlodipine Besylate (Norvasc) 5 mg DAILY PO Last administered on 11/12/16 08: 29; Admin Dose 5 MG; Start 11/11/16 at 09:00 Aspirin (Aspirin) 81 mg DAILY PO Last administered on 11/12/16 08:24; Admin Dose 81 MG; Start 11/11/16 at 09:00 Fluticasone Propionate (Flonase 0.05% Nasal) 1 spray DAILY NASAL Last administered on 11/12/16 08:31; Admin Dose 1 SPRAY; Start 11/11/16 at 09:00 Pantoprazole (Protonix Tab) 40 mg BID PO Last administered on 11/12/16 08:29; Admin Dose 40 MG; Start 11/10/16 at 21:00 Paroxetine HCl (Paxil) 20 mg DAILY PO Last administered on 11/12/16 08:32; Admin Dose 20 MG; Start 11/11/16 at 09:00 Ascorbic Acid (Vitamin C) 1,000 mg DAILY PO Last administered on 11/12/16 08: 24; Admin Dose 1,000 MG; Start 11/11/16 at 09:00 Mometasone Furoate (Asmanex) 1 puff BID INH Last administered on 11/12/16 08: 30; Admin Dose 1 PUFF; Start 11/10/16 at 23:00 Fenofibrate (Tricor) 145 mg DAILY PO Last administered on 11/12/16 08:32; Admin Dose 145 MG; Start 11/11/16 at 09:00 Multivitamins Therapeutic (Theragran) 1 tab DAILY PO Last administered on 08:25; Admin Dose 1 TAB; Start 11/11/16 at 09:00 Fish Oil (Fish Oil) 1,000 mg BID PO Last administered on 11/12/16 08:22; Admin Dose 1,000 MG; Start 11/10/16 at 22:30 Nicotine (Nicoderm 21 Mg/ 24hr) 1 patch DAILY TRANSDERM Last administered on 08:30; Admin Dose 1 PATCH; Start 11/11/16 at 09:00 Diagnostic Test (Pha) 1 ea 1 ea 02 XX Last administered on 11/12/16 02:10; Admin Dose 1 EA; Start 11/11/16 at 02:00 Vancomycin HCl/ Sodium Chloride (Vancocin/NS) 250 ml @ 83.333 mls/ hr Q12H IVPB Last administered on 11/12/16 10:38; Admin Dose 83.333 MLS/HR; Start at 11:00 Miscellaneous Information (Pending Santyl Order For Wound Care) This patient gaspar... PRN PRN XX WOUND CARE; Start 11/11/16 at 04:00 Insulin Glargine (Lantus) 36 unit DAILY@20 SC Last administered on 11/11/16 20 :27; Admin Dose 36 UNIT; Start 11/11/16 at 20:00 Miscellaneous Information 1 ea NOTE XX ; Start 11/11/16 at 16:00 Glucose (Glutose) 15 gm Q15M PRN PO DECREASED GLUCOSE; Start 11/11/16 at 16:00 Glucose (Glutose) 22.5 gm Q15M PRN PO DECREASED GLUCOSE; Start 11/11/16 at 16: 00 Dextrose (D50w Syringe) 25 ml Q15M PRN IV DECREASED GLUCOSE; Start 11/11/16 at 16:00 Dextrose (D50w Syringe) 50 ml Q15M PRN IV DECREASED GLUCOSE; Start 11/11/16 at 16:00 Glucagon (Glucagen) 1 mg Q15M PRN IM DECREASED GLUCOSE; Start 11/11/16 at 16:00 Glucose (Glutose) 15 gm Q15M PRN BUCCAL DECREASED GLUCOSE; Start 11/11/16 at 16 :00 Guaifenesin/ Dextromethorphan (Mucinex Dm) 1 tab BID PO Last administered on 08:31; Admin Dose 1 TAB; Start 11/11/16 at 21:00 Furosemide 40 mg 40 mg DAILY IV Last administered on 11/12/16 08:29; Admin Dose 40 MG; Start 11/12/16 at 09:00 Magnesium Sulfate (Magnesium Sulfate 2 Gm/50 ml) 50 ml @ 25 mls/hr ONCE ONCE IVPB ; Start 11/12/16 at 11:00; Stop 11/12/16 at 12:59 Atorvastatin Calcium (Lipitor) 40 mg HS PO ; Start 11/12/16 at 21:00 Methylprednisolone Sodium Succinate (Solu-Medrol) 40 mg DAILY IV ; Start at 09:00; Status UNV Procedures Procedures Echocardiogram Report Patient Name: KENISHA WOOTEN Gender: Female Date: 1955 Study Date: 11-Nov-2016 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 Physician: MICHAEL HUBBARD Quality: Adequate Procedures: Transthoracic echocardiogram with complete 2D, M-Mode, and doppler examination. Indications: Shortness of breath. 2D/M Mode Doppler Measurement Value Normal Ranges Measurement Value Normal Ranges LVIDd 2D 5.7 3.5 - 5.6 cm AV Peak Paulie 1.7 m/sec LVIDs 2D 3.0 2.1 - 4.1 cm AV Peak PG 11.6 mmHg LVPWd 2D 1.1 0.6 - 1.1 cm LVOT Peak Paulie 1.0 m/sec IVSd 2D 1.2 0.6 - 1.1 cm LVOT Peak PG 3.7 mmHg AoR Diam 2D 2.8 2.0 - 3.7 cm MV E Peak Paulie 0.8 m/sec EDV 2D 161.8 cm3 MV A Peak Paulie 0.9 m/sec ESV 2D 27.0 cm3 MV E/A 0.9 LA Dimen 2D 3.8 2.3 - 4.0 cm MV Decel Time 157 msec MV Decel [place] 5 MV E/A 0.9 TR Peak Paulie 2.9 m/sec TR Peak PG 32.5 mmHg RVSP 48.0 mmHg Findings Left Ventricle: Overall, normal left ventricular systolic function. Not all segments visualized. Mild concentric left ventricular hypertrophy. Ejection fraction is visually estimated at 60 %. Tissue Doppler/Mitral Doppler indices are consistent with impaired relaxation (Stage I diastolic dysfunction). Right Ventricle: Normal right ventricular size. Normal right ventricular systolic function. Left Atrium: The left atrium is normal in size. Right Atrium: The right atrium is normal in size. Mitral Valve: Normal appearance and function of the mitral valve with trace physiologic regurgitation. Aortic Valve: Normal appearance of the aortic valve. No significant aortic stenosis or insufficiency. Tricuspid Valve: Normal appearance of the tricuspid valve. Estimated peak PA systolic pressure 48 mmHg. There is mild tricuspid regurgitation. Pulmonic Valve: Normal pulmonic valve appearance. Pericardium: Normal pericardium with no significant pericardial effusion. Aorta: Normal aortic root. IVC: Dilated IVC without respiratory collapse consistent with elevated right atrial pressure. Conclusions 1. Overall, normal left ventricular systolic function. Not all segments visualized. Mild concentric left ventricular hypertrophy. Ejection fraction is visually estimated at 60 %. Tissue Doppler/Mitral Doppler indices are consistent with impaired relaxation (Stage I diastolic dysfunction). 2. Normal right ventricular size. Normal right ventricular systolic function. 3. The left atrium is normal in size. 4. The right atrium is normal in size. 5. Estimated peak PA systolic pressure 48 mmHg. There is mild tricuspid regurgitation. 6. No significant valvular stenosis or regurgitation seen of remaining visualized valves. 7. Normal pericardium with no significant pericardial effusion. Electronically Signed By: Otoniel Miller 11-Nov-2016 11:33:59 -0700 EVELINA MARTINES Nov 12, 2016 11:24
[2016-11-12] MEDS ORDERED: INSULIN ASPART [NOVOLOG] 3 ML PEN SC SCH (18:05)
[2016-11-12] MEDS ORDERED: INSULIN GLARGINE [LANtus] 3 ML PEN SC SCH (20:00)
[2016-11-12] MEDS: ATORVASTATIN 40 MG TAB PO SCH (20:34)
[2016-11-13] VITALS (16 sets, daily range): BP systolic 142–159; BP diastolic 65–79; PULSE 74–96; RESP 16–23
[2016-11-13] MEDS: PIPER-TAZO 3.375 GM IV (PMX) 100 ML IVPB SCH ×2 (00:45→06:52)
[2016-11-13] MEDS: ACCU-CHEK XX SCH (02:00)
[2016-11-13] MEDS: ALBUTEROL/IPRATROPIUM (NEB) 3 ML AMP HHN SCH ×4 (02:30→19:28)
[2016-11-13 07:25] LABS: BASOPHILS % 0.3 % (0.0-2.0); EOSINOPHILS # 0.1 10^3/ul (0.0-0.5); EOSINOPHILS % 0.8 % (0.0-7.0); HEMATOCRIT 30.7 % (37.0-47.0); HEMOGLOBIN 9.7 g/dl (12.0-16.0); LYMPHOCYTES % 17.7 % (15.0-51.0); MEAN CORPUSCULAR HEMOGLOBIN 26.9 pg (29.0-33.0); MEAN CORPUSCULAR HGB CONC 31.6 g/dl (32.0-37.0); MONOCYTE # 0.6 10^3/ul (0.3-0.9); MONOCYTES % 5.1 % (0.0-11.0); NEUTROPHILS % 74.9 % (39.0-77.0); PLATELET COUNT 351 10^3/UL (140-415); RED BLOOD COUNT 3.61 10^6/ul (4.20-5.40); RED CELL DISTRIBUTION WIDTH 14.9 % (11.5-14.5); WHITE BLOOD COUNT 11.2 10^3/ul (4.8-10.8)
[2016-11-13 07:56] LABS: MAGNESIUM 2.1 mg/dl (1.7-2.5); PHOSPHORUS 3.5 mg/dl (2.5-4.9)
[2016-11-13 07:59] LABS: CALCIUM 9.5 mg/dl (8.4-10.2); CREATININE 0.94 mg/dl (0.44-1.00); POTASSIUM 4.4 mmol/L (3.5-5.1)
[2016-11-13] MEDS: metFORMIN 500 MG TAB PO SCH ×2 (08:17→17:26)
[2016-11-13] MEDS: INSULIN ASPART [NOVOLOG] 3 ML PEN SC SCH ×7 (08:20→21:05)
[2016-11-13] MEDS: MOMETASONE 0.24 GM INHALER INH SCH ×2 (08:54→20:57)
[2016-11-13] MEDS: FLUTICASONE 0.05% 16 GM NAS SPRAY NASAL SCH (08:54)
[2016-11-13] MEDS: PAROXETINE 20 MG TAB PO SCH (08:55)
[2016-11-13] MEDS: GUAIFENESIN/DM (SR) TAB PO SCH ×2 (08:55→20:57)
[2016-11-13] MEDS: NICOTINE (21 MG/24 HR) PATCH TRANSDERM SCH (08:55)
[2016-11-13] MEDS: PANTOPRAZOLE (EC) 40 MG TAB PO SCH ×2 (08:55→20:58)
[2016-11-13] MEDS: AMLODIPINE 5 MG TAB PO SCH (08:55)
[2016-11-13] MEDS: FISH OIL 1,000 MG CAP PO SCH ×2 (08:55→20:58)
[2016-11-13] MEDS: FENOFIBRATE 145 MG TAB PO SCH (08:55)
[2016-11-13] MEDS: ASCORBIC ACID 500 MG TAB PO SCH (08:56)
[2016-11-13] MEDS: MULTIVITAMINS THERAPEUTIC TAB PO SCH (08:56)
[2016-11-13] MEDS: ASPIRIN 81 MG TAB PO SCH (08:56)
[2016-11-13] MEDS: FUROSEMIDE 40 MG INJ IV SCH (08:56)
[2016-11-13] MEDS ORDERED: METHYLPREDNISOLONE 40 MG INJ IV SCH (09:00)
[2016-11-13] MEDS: HEPARIN 5,000 UNIT/0.5 ML VIAL SC SCH ×2 (09:12→21:05)
--- NOTE | 2016-11-13 10:44 | PN ---
Date/Time of Note Date/Time of Note DATE: 11/13/16 TIME: 10:29 Assessment/Plan VTE Prophylaxis VTE Prophylaxis Intervention: SCD's Lines/Catheters IV Catheter Type (from Nrs): Saline Lock Urinary Cath still in place: No Assessment/Plan Assessment/Plan 61-year-old female with: , diabetes, hypertension, 1. Respiratory distress, likely secondary to combination of COPD exacerbation and pneumonia, sepsis on admission. Much improved improved, titrating supplemental O2 down with goal O2 sat 90-92%. Continue tapering down steroids, decrease Solu-Medrol to 20 mg IV daily with plan to discontinue after dose tomorrow. . Continue duo nebs every 6h scheduled and every 3h as needed shortness of breath , broad-spectrum antibiotics, decongestants w/ Mucinex DM. Tylenol as needed pain and fevers. Change antibiotics to oral Augmentin. Continue CPAP/BIPAP at night and while sleeping 2. Essential hypertension: Continue Norvasc, lisinopril on hold. Also on Lasix for diuresis, currently Lasix is IV with plan to be discharged on oral home dosing. 3. Diabetes type 2, A1c 8.5, continue moderate sliding scale insulin, also adjusted insulin regimen to ultra resistant regimen, patient on steroids which is worsening her hyperglycemia. Appreciate recommendations from a rock duster, patient back on her split dose of Lantus as of today along with pre- meal insulin and sliding scale insulin. Also Solu-Medrol decreased to 20 mg IV daily and back on metformin resumed. Plan to discontinue Solu-Medrol after tomorrow's dose. 4. Tobacco use: Nicotine patch in place. Patient needs to stop tobacco use given obstructive sleep apnea and COPD. 5. Hyperlipidemia: Low-cholesterol diet. 6. Gastritis/gastroesophageal reflux disease: Continue Protonix 7. Probable diastolic congestive heart failure: Continue Lasix, changed to IV for another 24 hours and plan to switch back to oral at the time of discharge. Prophylaxis: PPI for GI prophylaxis and Heparin subcu for DVT prophylaxis. Disposition: Pulmonary toilet, IV antibiotics, diuresis, blood sugar control especially while on lower dose of steroids. Discharge planning in the next 24- 48 hours. Subjective 24 Hr Interval Summary Free Text/Dictation Patient feels better this morning, goal O2 sat should be 90-92% given her severe COPD. She is already on 2.5-3 L nasal cannula at home Appreciate diabetic education recommendation, will resume split dose of Lantus, continue current dosing of pre-meal insulin and sliding scale insulin. Discharge planning in the next 48 hours hopefully. Exam/Review of Systems Vital Signs Vitals Vital Signs Date Time Temp Pulse Resp B/P Pulse Ox O2 Delivery O2 Flow Rate FiO2 11/13/16 08:35 77 11/13/16 07:43 98.0 18 158/65 98 11/13/16 07:15 6.0 11/13/16 07:15 Nasal Cannula 11/13/16 05:12 50 Intake and Output 11/12/16 11/12/16 11/13/16 15:00 23:00 07:00 Intake Total 1410 ml 1950 ml Balance 1410 ml 1950 ml Exam Constitutional: alert, obese (Morbid), oriented Respiratory: clear to auscultation, normal air movement, other (No wheezes today. 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, nl mental status, nl speech, nl strength (At baseline) Results Result Diagram: 11/13/16 0657 11/13/16 0657 Results 24 hrs Laboratory Tests Test 11/12/16 12:16 11/12/16 17:04 11/12/16 20:33 11/13/16 03:01 Bedside Glucose 314 H 403 *H 340 H 253 H Test 11/13/16 06:57 11/13/16 08:04 White Blood Count 11.2 #H Red Blood Count 3.61 L Hemoglobin 9.7 L Hematocrit 30.7 L Mean Corpuscular Volume 85.0 Mean Corpuscular Hemoglobin 26.9 L Mean Corpuscular Hemoglobin Concent 31.6 L Red Cell Distribution Width 14.9 H Platelet Count 351 Mean Platelet Volume 9.0 Neutrophils % 74.9 Lymphocytes % 17.7 Monocytes % 5.1 Eosinophils % 0.8 Basophils % 0.3 Nucleated Red Blood Cells % 0.0 Neutrophils # (Manual) 8 H Lymphocytes # 2.0 Monocytes # 0.6 Eosinophils # 0.1 Basophils # 0.0 Nucleated Red Blood Cells # 0.0 Sodium Level 142 Potassium Level 4.4 Chloride Level 94 L Carbon Dioxide Level 32 H Anion Gap 20 H Blood Urea Nitrogen 21 H Creatinine 0.94 Glucose Level 198 Calcium Level 9.5 Phosphorus Level 3.5 Magnesium Level 2.1 Bedside Glucose 209 Medications Medications Current Medications Ondansetron HCl (Zofran Inj) 4 mg Q6H PRN IV NAUSEA AND/OR VOMITING; Start at 18:00 Acetaminophen (Tylenol Tab) 650 mg Q6H PRN PO PAIN LEVEL 1-3 OR FEVER Last administered on 11/12/16 04:29; Admin Dose 650 MG; Start 11/10/16 at 18:00 Acetaminophen/ Hydrocodone Bitart ([place] (5/325)) 1 tab Q6H PRN PO MODERATE PAIN LEVEL 4-6; Start 11/10/16 at 18:00 Morphine Sulfate (morphine) 2 mg Q4H PRN IV SEVERE PAIN LEVEL 7-10; Start 11/10 at 18:00 Docusate Sodium (Colace) 100 mg Q12H PRN PO CONSTIPATION Last administered on 10:46; Admin Dose 100 MG; Start 11/10/16 at 18:00 Magnesium Hydroxide (Milk Of Mag) 30 ml DAILY PRN PO CONSTIPATION; Start at 18:00 Sodium Biphosphate/ Sodium Phosphate (Fleet Enema) 133 ml DAILY PRN [place] CONSTIPATION; Start 11/10/16 at 18:00 Heparin Sodium (Porcine) (Heparin (5000 Units/0.5 ml)) 5,000 unit Q12 SC Last administered on 11/13/16 09:12; Admin Dose 5,000 UNIT; Start 11/10/16 at 21:00 Lorazepam 0.5 mg 0.5 mg Q6H PRN IV ANXIETY; Start 11/10/16 at 18:00 Piperacillin Sod/ Tazobactam Sod (Zosyn 3.375gm/ 100 ml (Pmx)) 100 ml @ 200 mls /hr Q6 IVPB Last administered on 11/13/16 06:52; Admin Dose 200 MLS/HR; Start 11/10/16 at 18:00 Hydralazine HCl (Apresoline) 10 mg Q6H PRN IV ELEVATED BLOOD PRESSURE; Start at 18:00 Nitroglycerin (Nitroglycerin (Sl Tab) 0.4 Mg) 1 tab Q5M PRN SL ANGINA; Start at 18:00 Amlodipine Besylate (Norvasc) 5 mg DAILY PO Last administered on 11/13/16 08: 55; Admin Dose 5 MG; Start 11/11/16 at 09:00 Aspirin (Aspirin) 81 mg DAILY PO Last administered on 11/13/16 08:56; Admin Dose 81 MG; Start 11/11/16 at 09:00 Fluticasone Propionate (Flonase 0.05% Nasal) 1 spray DAILY NASAL Last administered on 11/13/16 08:54; Admin Dose 1 SPRAY; Start 11/11/16 at 09:00 Pantoprazole (Protonix Tab) 40 mg BID PO Last administered on 11/13/16 08:55; Admin Dose 40 MG; Start 11/10/16 at 21:00 Paroxetine HCl (Paxil) 20 mg DAILY PO Last administered on 11/13/16 08:55; Admin Dose 20 MG; Start 11/11/16 at 09:00 Ascorbic Acid (Vitamin C) 1,000 mg DAILY PO Last administered on 11/13/16 08: 56; Admin Dose 1,000 MG; Start 11/11/16 at 09:00 Mometasone Furoate (Asmanex) 1 puff BID INH Last administered on 11/13/16 08: 54; Admin Dose 1 PUFF; Start 11/10/16 at 23:00 Fenofibrate (Tricor) 145 mg DAILY PO Last administered on 11/13/16 08:55; Admin Dose 145 MG; Start 11/11/16 at 09:00 Multivitamins Therapeutic (Theragran) 1 tab DAILY PO Last administered on 08:56; Admin Dose 1 TAB; Start 11/11/16 at 09:00 Fish Oil (Fish Oil) 1,000 mg BID PO Last administered on 11/13/16 08:55; Admin Dose 1,000 MG; Start 11/10/16 at 22:30 Nicotine (Nicoderm 21 Mg/ 24hr) 1 patch DAILY TRANSDERM Last administered on 08:55; Admin Dose 1 PATCH; Start 11/11/16 at 09:00 Diagnostic Test (Pha) 1 ea 1 ea 02 XX Last administered on 11/13/16 02:00; Admin Dose 1 EA; Start 11/11/16 at 02:00 Vancomycin HCl/ Sodium Chloride (Vancocin/NS) 250 ml @ 83.333 mls/ hr Q12H IVPB Last administered on 11/12/16 23:32; Admin Dose 83.333 MLS/HR; Start at 11:00 [facility] This patient agspar... PRN PRN XX WOUND CARE; Start 11/11/16 at 04:00 Miscellaneous Information 1 ea NOTE XX ; Start 11/11/16 at 16:00 Glucose (Glutose) 15 gm Q15M PRN PO DECREASED GLUCOSE; Start 11/11/16 at 16:00 Glucose (Glutose) 22.5 gm Q15M PRN PO DECREASED GLUCOSE; Start 11/11/16 at 16: 00 Dextrose (D50w Syringe) 25 ml Q15M PRN IV DECREASED GLUCOSE; Start 11/11/16 at 16:00 Dextrose (D50w Syringe) 50 ml Q15M PRN IV DECREASED GLUCOSE; Start 11/11/16 at 16:00 Glucagon (Glucagen) 1 mg Q15M PRN IM DECREASED GLUCOSE; Start 11/11/16 at 16:00 Glucose (Glutose) 15 gm Q15M PRN BUCCAL DECREASED GLUCOSE; Start 11/11/16 at 16 :00 Guaifenesin/ Dextromethorphan (Mucinex Dm) 1 tab BID PO Last administered on 08:55; Admin Dose 1 TAB; Start 11/11/16 at 21:00 Furosemide (Lasix) 40 mg DAILY IV Last administered on 11/13/16 08:56; Admin Dose 40 MG; Start 11/12/16 at 09:00 Atorvastatin Calcium (Lipitor) 40 mg HS PO Last administered on 11/12/16 20:34 ; Admin Dose 40 MG; Start 11/12/16 at 21:00 Methylprednisolone Sodium Succinate (Solu-Medrol) 40 mg DAILY IV Last administered on 11/13/16 08:55; Admin Dose 40 MG; Start 11/13/16 at 09:00 Insulin Glargine (Lantus) 45 unit DAILY@20 SC Last administered on 11/12/16 20 :38; Admin Dose 45 UNIT; Start 11/12/16 at 20:00 EVELINA MARTINES Nov 13, 2016 10:44
[2016-11-13] MEDS: VANCOMYCIN 1.25 GM in SOD CHLORIDE 0.9% 250 ML IVPB SCH ×2 (11:50→23:11)
[2016-11-13] MEDS: INSULIN GLARGINE [LANtus] 3 ML PEN SC SCH ×2 (11:51→21:04)
[2016-11-13] MEDS: AMOXICILLIN/CLAV 875 MG TAB PO SCH ×2 (12:59→20:58)
--- NOTE | 2016-11-13 13:43 | RADRPT ---
Vent Rate: 77 bpm RR Interval: 0 msec OR Interval: 150 msec QRS Duration: 108 msec QT Interval: 388 msec QTC Interval: 439 msec P-R-T [place]: 72 - 68 - 75 degrees Normal sinus rhythm Incomplete left bundle branch block Borderline ECG Electronically Signed By: Castillo Burks [id number]
--- NOTE | 2016-11-13 16:43 | CONS ---
Date/Time of Note Date/Time of Note DATE: 11/13/16 TIME: 16:41 Assessment/Plan Assessment/Plan Additional Assessment/Plan COPD exacerbation SIRS Mild acute decompensated diastolic congestive heart failure Preserved ejection fraction Mildly elevated troponin likely secondary to above Respiratory failure Obstructive sleep apnea Morbid obesity Hypertension Active tobacco use Diabetes -Lung examination continues to improve, would switch to p.o. diuretics. Steroids and nebulizer management as per our esteemed hospitalist. Continue aspirin and statin therapy if no complication. DC planning next 1-2 days Consultation Date/Type/Reason Admit Date/Time Nov 10, 2016 at 16:42 Initial Consult Date Type of Consultation: cv 24 HR Interval Summary Free Text/Dictation Shortness breath is much better today, denies chest pain or palpitations Exam/Review of Systems Vital Signs Vitals Vital Signs Date Time Temp Pulse Resp B/P Pulse Ox O2 Delivery O2 Flow Rate FiO2 11/13/16 16:36 85 11/13/16 15:26 98.1 16 159/68 96 11/13/16 13:30 Nasal Cannula 6.0 11/13/16 05:12 50 Intake and Output 11/12/16 11/12/16 11/13/16 15:00 23:00 07:00 Intake Total 1410 ml 1950 ml Balance 1410 ml 1950 ml Exam Sitting in chair, on oxygen, no apparent distress Constitutional: alert, oriented Head: normocephalic Respiratory: other (Coarse breath sounds bilaterally, no wheezing) Cardiovascular: other (S1-S2 heard), regular rate and rhythm Gastrointestinal: bowel sounds, non-tender, soft Extremities: edema Results Result Diagram: 11/13/16 0657 11/13/16 0657 Results 24 hrs Laboratory Tests Test 11/12/16 17:04 11/12/16 20:33 11/13/16 03:01 11/13/16 06:57 Bedside Glucose 403 *H 340 H 253 H White Blood Count 11.2 #H Red Blood Count 3.61 L Hemoglobin 9.7 L Hematocrit 30.7 L Mean Corpuscular Volume 85.0 Mean Corpuscular Hemoglobin 26.9 L Mean Corpuscular Hemoglobin Concent 31.6 L Red Cell Distribution Width 14.9 H Platelet Count 351 Mean Platelet Volume 9.0 Neutrophils % 74.9 Lymphocytes % 17.7 Monocytes % 5.1 Eosinophils % 0.8 Basophils % 0.3 Nucleated Red Blood Cells % 0.0 Neutrophils # (Manual) 8 H Lymphocytes # 2.0 Monocytes # 0.6 Eosinophils # 0.1 Basophils # 0.0 Nucleated Red Blood Cells # 0.0 Sodium Level 142 Potassium Level 4.4 Chloride Level 94 L Carbon Dioxide Level 32 H Anion Gap 20 H Blood Urea Nitrogen 21 H Creatinine 0.94 Glucose Level 198 Calcium Level 9.5 Phosphorus Level 3.5 Magnesium Level 2.1 Test 11/13/16 08:04 11/13/16 11:50 Bedside Glucose 209 283 H Medications Medications Current Medications Ondansetron HCl (Zofran Inj) 4 mg Q6H PRN IV NAUSEA AND/OR VOMITING; Start at 18:00 Acetaminophen (Tylenol Tab) 650 mg Q6H PRN PO PAIN LEVEL 1-3 OR FEVER Last administered on 11/12/16 04:29; Admin Dose 650 MG; Start 11/10/16 at 18:00 Acetaminophen/ Hydrocodone Bitart ([place] (5/325)) 1 tab Q6H PRN PO MODERATE PAIN LEVEL 4-6; Start 11/10/16 at 18:00 Morphine Sulfate (morphine) 2 mg Q4H PRN IV SEVERE PAIN LEVEL 7-10; Start 11/10 at 18:00 Docusate Sodium (Colace) 100 mg Q12H PRN PO CONSTIPATION Last administered on 10:46; Admin Dose 100 MG; Start 11/10/16 at 18:00 Magnesium Hydroxide (Milk Of Mag) 30 ml DAILY PRN PO CONSTIPATION; Start at 18:00 Sodium Biphosphate/ Sodium Phosphate (Fleet Enema) 133 ml DAILY PRN [place] CONSTIPATION; Start 11/10/16 at 18:00 Heparin Sodium (Porcine) (Heparin (5000 Units/0.5 ml)) 5,000 unit Q12 SC Last administered on 11/13/16 09:12; Admin Dose 5,000 UNIT; Start 11/10/16 at 21:00 Lorazepam (Ativan) 0.5 mg Q6H PRN IV ANXIETY; Start 11/10/16 at 18:00 Hydralazine HCl (Apresoline) 10 mg Q6H PRN IV ELEVATED BLOOD PRESSURE; Start at 18:00 Nitroglycerin (Nitroglycerin (Sl Tab) 0.4 Mg) 1 tab Q5M PRN SL ANGINA; Start at 18:00 Amlodipine Besylate (Norvasc) 5 mg DAILY PO Last administered on 11/13/16 08: 55; Admin Dose 5 MG; Start 11/11/16 at 09:00 Aspirin (Aspirin) 81 mg DAILY PO Last administered on 11/13/16 08:56; Admin Dose 81 MG; Start 11/11/16 at 09:00 Fluticasone Propionate (Flonase 0.05% Nasal) 1 spray DAILY NASAL Last administered on 11/13/16 08:54; Admin Dose 1 SPRAY; Start 11/11/16 at 09:00 Pantoprazole (Protonix Tab) 40 mg BID PO Last administered on 11/13/16 08:55; Admin Dose 40 MG; Start 11/10/16 at 21:00 Paroxetine HCl (Paxil) 20 mg DAILY PO Last administered on 11/13/16 08:55; Admin Dose 20 MG; Start 11/11/16 at 09:00 Ascorbic Acid (Vitamin C) 1,000 mg DAILY PO Last administered on 11/13/16 08: 56; Admin Dose 1,000 MG; Start 11/11/16 at 09:00 Mometasone Furoate (Asmanex) 1 puff BID INH Last administered on 11/13/16 08: 54; Admin Dose 1 PUFF; Start 11/10/16 at 23:00 Fenofibrate (Tricor) 145 mg DAILY PO Last administered on 11/13/16 08:55; Admin Dose 145 MG; Start 11/11/16 at 09:00 Multivitamins Therapeutic (Theragran) 1 tab DAILY PO Last administered on 08:56; Admin Dose 1 TAB; Start 11/11/16 at 09:00 Fish Oil (Fish Oil) 1,000 mg BID PO Last administered on 11/13/16 08:55; Admin Dose 1,000 MG; Start 11/10/16 at 22:30 Nicotine (Nicoderm 21 Mg/ 24hr) 1 patch DAILY TRANSDERM Last administered on 08:55; Admin Dose 1 PATCH; Start 11/11/16 at 09:00 Diagnostic Test (Pha) 1 ea 1 ea 02 XX Last administered on 11/13/16 02:00; Admin Dose 1 EA; Start 11/11/16 at 02:00 Vancomycin HCl/ Sodium Chloride (Vancocin/NS) 250 ml @ 83.333 mls/ hr Q12H IVPB Last administered on 11/13/16 11:50; Admin Dose 83.333 MLS/HR; Start at 11:00 Miscellaneous Information (Pending Santyl Order For Wound Care) This patient gaspar... PRN PRN XX WOUND CARE; Start 11/11/16 at 04:00 Miscellaneous Information 1 ea NOTE XX ; Start 11/11/16 at 16:00 Glucose (Glutose) 15 gm Q15M PRN PO DECREASED GLUCOSE; Start 11/11/16 at 16:00 Glucose (Glutose) 22.5 gm Q15M PRN PO DECREASED GLUCOSE; Start 11/11/16 at 16: 00 Dextrose (D50w Syringe) 25 ml Q15M PRN IV DECREASED GLUCOSE; Start 11/11/16 at 16:00 Dextrose (D50w Syringe) 50 ml Q15M PRN IV DECREASED GLUCOSE; Start 11/11/16 at 16:00 Glucagon (Glucagen) 1 mg Q15M PRN IM DECREASED GLUCOSE; Start 11/11/16 at 16:00 Glucose (Glutose) 15 gm Q15M PRN BUCCAL DECREASED GLUCOSE; Start 11/11/16 at 16 :00 Guaifenesin/ Dextromethorphan (Mucinex Dm) 1 tab BID PO Last administered on 08:55; Admin Dose 1 TAB; Start 11/11/16 at 21:00 Furosemide (Lasix) 40 mg DAILY IV Last administered on 11/13/16 08:56; Admin Dose 40 MG; Start 11/12/16 at 09:00 Atorvastatin Calcium (Lipitor) 40 mg HS PO Last administered on 11/12/16 20:34 ; Admin Dose 40 MG; Start 11/12/16 at 21:00 Methylprednisolone Sodium Succinate (Solu-Medrol) 20 mg DAILY IV ; Start at 09:00 Insulin Glargine (Lantus) 30 unit BID SC Last administered on 11/13/16 11:51; Admin Dose 30 UNIT; Start 11/13/16 at 11:00 Amoxicillin/ Clavulanate Potassium (Augmentin) 875 mg BID PO Last administered on 8/18/17at 12:59; Admin Dose 875 MG; Start 11/13/16 at 12:00 Otoniel Miller DO Nov 13, 2016 16:43
[2016-11-13] MEDS: ATORVASTATIN 40 MG TAB PO SCH (20:58)
[2016-11-14] VITALS (11 sets, daily range): BP systolic 130–156; BP diastolic 59–69; PULSE 69–75; RESP 19–22
[2016-11-14] MEDS: ALBUTEROL/IPRATROPIUM (NEB) 3 ML AMP HHN SCH ×4 (01:48→13:10)
[2016-11-14] MEDS: ACCU-CHEK XX SCH (01:56)
[2016-11-14] MEDS ORDERED: BUMETANIDE 1 MG TAB PO SCH (06:00)
--- NOTE | 2016-11-14 07:39 | PN ---
Date/Time of Note Date/Time of Note DATE: 11/14/16 TIME: 07:38 Assessment/Plan VTE Prophylaxis VTE Prophylaxis Intervention: SCD's Lines/Catheters IV Catheter Type (from Nrsg): [place] Urinary Cath still in place: No Assessment/Plan Assessment/Plan COPD exacerbation SIRS Mild acute decompensated diastolic congestive heart failure Preserved ejection fraction Mildly elevated troponin likely secondary to above Respiratory failure Obstructive sleep apnea Morbid obesity Hypertension Active tobacco use Diabetes -Lung examination continues to improve, continue. diuretics. Steroids and nebulizer management as per our hospitalist. Continue aspirin and statin therapy if no complication. DC planning ok Subjective 24 Hr Interval Summary Free Text/Dictation The patient with no complaints Exam/Review of Systems Vital Signs Vitals Vital Signs Date Time Temp Pulse Resp B/P Pulse Ox O2 Delivery O2 Flow Rate FiO2 11/14/16 05:50 72 98 50 11/14/16 05:22 97.7 20 130/59 11/13/16 22:00 4.0 11/13/16 20:00 Nasal Cannula Intake and Output 11/13/16 11/13/16 11/14/16 15:00 23:00 07:00 Intake Total 100 ml 1100 ml 750 ml Balance 100 ml 1100 ml 750 ml Results Result Diagram: 11/13/16 0657 11/13/16 0657 Results 24 hrs Laboratory Tests Test 11/13/16 08:04 11/13/16 11:50 11/13/16 17:22 11/13/16 21:01 Bedside Glucose 209 283 H 324 H 309 H Test 11/14/16 01:51 Bedside Glucose 129 Medications Medications Current Medications Ondansetron HCl (Zofran Inj) 4 mg Q6H PRN IV NAUSEA AND/OR VOMITING; Start at 18:00 Acetaminophen (Tylenol Tab) 650 mg Q6H PRN PO PAIN LEVEL 1-3 OR FEVER Last administered on 11/12/16t 04:29; Admin Dose 650 MG; Start 11/10/16 at 18:00 Acetaminophen/ Hydrocodone Bitart ([place] (5/325)) 1 tab Q6H PRN PO MODERATE PAIN LEVEL 4-6; Start 11/10/16 at 18:00 Morphine Sulfate (morphine) 2 mg Q4H PRN IV SEVERE PAIN LEVEL 7-10; Start 11/10 at 18:00 Docusate Sodium (Colace) 100 mg Q12H PRN PO CONSTIPATION Last administered on 10:46; Admin Dose 100 MG; Start 11/10/16 at 18:00 Magnesium Hydroxide (Milk Of Mag) 30 ml DAILY PRN PO CONSTIPATION; Start at 18:00 Sodium Biphosphate/ Sodium Phosphate (Fleet Enema) 133 ml DAILY PRN [place] CONSTIPATION; Start 11/10/16 at 18:00 Heparin Sodium (Porcine) (Heparin (5000 Units/0.5 ml)) 5,000 unit Q12 SC Last administered on 11/13/16 21:05; Admin Dose 5,000 UNIT; Start 11/10/16 at 21:00 Lorazepam (Ativan) 0.5 mg Q6H PRN IV ANXIETY; Start 11/10/16 at 18:00 Hydralazine HCl (Apresoline) 10 mg Q6H PRN IV ELEVATED BLOOD PRESSURE; Start at 18:00 Nitroglycerin (Nitroglycerin (Sl Tab) 0.4 Mg) 1 tab Q5M PRN SL ANGINA; Start at 18:00 Amlodipine Besylate (Norvasc) 5 mg DAILY PO Last administered on 11/13/16 08: 55; Admin Dose 5 MG; Start 11/11/16 at 09:00 Aspirin (Aspirin) 81 mg DAILY PO Last administered on 11/13/16 08:56; Admin Dose 81 MG; Start 11/11/16 at 09:00 Fluticasone Propionate (Flonase 0.05% Nasal) 1 spray DAILY NASAL Last administered on 11/13/16 08:54; Admin Dose 1 SPRAY; Start 11/11/16 at 09:00 Pantoprazole (Protonix Tab) 40 mg BID PO Last administered on 11/13/16 20:58; Admin Dose 40 MG; Start 11/10/16 at 21:00 Paroxetine HCl (Paxil) 20 mg DAILY PO Last administered on 11/13/16 08:55; Admin Dose 20 MG; Start 11/11/16 at 09:00 Ascorbic Acid (Vitamin C) 1,000 mg DAILY PO Last administered on 11/13/16 08: 56; Admin Dose 1,000 MG; Start 11/11/16 at 09:00 Mometasone Furoate (Asmanex) 1 puff BID INH Last administered on 11/13/16 20: 57; Admin Dose 1 PUFF; Start 11/10/16 at 23:00 Fenofibrate (Tricor) 145 mg DAILY PO Last administered on 11/13/16 08:55; Admin Dose 145 MG; Start 11/11/16 at 09:00 Multivitamins Therapeutic (Theragran) 1 tab DAILY PO Last administered on 08:56; Admin Dose 1 TAB; Start 11/11/16 at 09:00 Fish Oil (Fish Oil) 1,000 mg BID PO Last administered on 11/13/16 20:58; Admin Dose 1,000 MG; Start 11/10/16 at 22:30 Nicotine (Nicoderm 21 Mg/ 24hr) 1 patch DAILY TRANSDERM Last administered on 08:55; Admin Dose 1 PATCH; Start 11/11/16 at 09:00 Diagnostic Test (Pha) 1 ea 1 ea 02 XX Last administered on 11/14/16 01:56; Admin Dose 1 EA; Start 11/11/16 at 02:00 Vancomycin HCl/ Sodium Chloride (Vancocin/NS) 250 ml @ 83.333 mls/ hr Q12H IVPB Last administered on 11/13/16 23:11; Admin Dose 83.333 MLS/HR; Start at 11:00 Miscellaneous Information (Pending [facility] Order For Wound Care) This patient gaspar... PRN PRN XX WOUND CARE; Start 11/11/16 at 04:00 Miscellaneous Information 1 ea NOTE XX ; Start 11/11/16 at 16:00 Glucose (Glutose) 15 gm Q15M PRN PO DECREASED GLUCOSE; Start 11/11/16 at 16:00 Glucose (Glutose) 22.5 gm Q15M PRN PO DECREASED GLUCOSE; Start 11/11/16 at 16: 00 Dextrose (D50w Syringe) 25 ml Q15M PRN IV DECREASED GLUCOSE; Start 11/11/16 at 16:00 Dextrose (D50w Syringe) 50 ml Q15M PRN IV DECREASED GLUCOSE; Start 11/11/16 at 16:00 Glucagon (Glucagen) 1 mg Q15M PRN IM DECREASED GLUCOSE; Start 11/11/16 at 16:00 Glucose (Glutose) 15 gm Q15M PRN BUCC[place] DECREASED GLUCOSE; Start 11/11/16 at 16 :00 Guaifenesin/ Dextromethorphan (Mucinex Dm) 1 tab BID PO Last administered on 20:57; Admin Dose 1 TAB; Start 11/11/16 at 21:00 Atorvastatin Calcium (Lipitor) 40 mg HS PO Last administered on 11/13/16 20:58 ; Admin Dose 40 MG; Start 11/12/16 at 21:00 Methylprednisolone Sodium Succinate (Solu-Medrol) 20 mg DAILY IV ; Start at 09:00 Insulin Glargine (Lantus) 30 unit BID SC Last administered on 11/13/16 21:04; Admin Dose 30 UNIT; Start 11/13/16 at 11:00 Amoxicillin/ Clavulanate Potassium (Augmentin) 875 mg BID PO Last administered on 11/13/16 20:58; Admin Dose 875 MG; Start 11/13/16 at 12:00 Bumetanide (Bumex) 1 mg DAILY@06 PO Last administered on 11/14/16 06:25; Admin Dose 1 MG; Start 11/14/16 at 06:00 IAN KILLIAN MD Nov 14, 2016 07:39
[2016-11-14] MEDS: INSULIN ASPART [NOVOLOG] 3 ML PEN SC SCH ×4 (08:00→12:41)
[2016-11-14 08:59] LABS: BASOPHIL # 0.1 10^3/ul (0.0-0.1); BASOPHILS % 0.5 % (0.0-2.0); EOSINOPHILS # 0.3 10^3/ul (0.0-0.5); HEMATOCRIT 33.7 % (37.0-47.0); HEMOGLOBIN 10.3 g/dl (12.0-16.0); LYMPHOCYTES # 2.4 10^3/ul (0.8-2.9); LYMPHOCYTES % 23.2 % (15.0-51.0); MEAN CORPUSCULAR HEMOGLOBIN 26.2 pg (29.0-33.0); MEAN CORPUSCULAR HGB CONC 30.6 g/dl (32.0-37.0); MEAN CORPUSCULAR VOLUME 85.8 fl (82.0-101.0); MEAN PLATELET VOLUME 9.3 fl (7.4-10.4); MONOCYTE # 0.6 10^3/ul (0.3-0.9); MONOCYTES % 6.2 % (0.0-11.0); NEUTROPHILS % 65.8 % (39.0-77.0); PLATELET COUNT 393 10^3/UL (140-415); RED BLOOD COUNT 3.93 10^6/ul (4.20-5.40); RED CELL DISTRIBUTION WIDTH 14.7 % (11.5-14.5); WHITE BLOOD COUNT 10.4 10^3/ul (4.8-10.8)
[2016-11-14] MEDS: FLUTICASONE 0.05% 16 GM NAS SPRAY NASAL SCH (09:00)
[2016-11-14] MEDS ORDERED: METHYLPREDNISOLONE 40 MG INJ IV SCH (09:00)
[2016-11-14 09:11] LABS: CREATININE 0.97 mg/dl (0.44-1.00); POTASSIUM 3.9 mmol/L (3.5-5.1)
[2016-11-14 09:11] LABS: MAGNESIUM 1.9 mg/dl (1.7-2.5); PHOSPHORUS 4.9 mg/dl (2.5-4.9)
[2016-11-14] MEDS: NICOTINE (21 MG/24 HR) PATCH TRANSDERM SCH (09:48)
[2016-11-14] MEDS: AMOXICILLIN/CLAV 875 MG TAB PO SCH (09:49)
[2016-11-14] MEDS: MULTIVITAMINS THERAPEUTIC TAB PO SCH (09:49)
[2016-11-14] MEDS: ASPIRIN 81 MG TAB PO SCH (09:50)
[2016-11-14] MEDS: ASCORBIC ACID 500 MG TAB PO SCH (09:50)
[2016-11-14] MEDS: GUAIFENESIN/DM (SR) TAB PO SCH (09:50)
[2016-11-14] MEDS: PANTOPRAZOLE (EC) 40 MG TAB PO SCH (09:50)
[2016-11-14] MEDS: FENOFIBRATE 145 MG TAB PO SCH (09:50)
[2016-11-14] MEDS: metFORMIN 500 MG TAB PO SCH (09:50)
[2016-11-14] MEDS: PAROXETINE 20 MG TAB PO SCH (09:50)
[2016-11-14] MEDS: FISH OIL 1,000 MG CAP PO SCH (09:51)
[2016-11-14] MEDS: AMLODIPINE 5 MG TAB PO SCH (09:51)
[2016-11-14] MEDS: INSULIN GLARGINE [LANtus] 3 ML PEN SC SCH (09:53)
[2016-11-14] MEDS: HEPARIN 5,000 UNIT/0.5 ML VIAL SC SCH (09:54)
[2016-11-14] MEDS: MOMETASONE 0.24 GM INHALER INH SCH (09:56)
[2016-11-14] MEDS: VANCOMYCIN 1.25 GM in SOD CHLORIDE 0.9% 250 ML IVPB SCH (11:00)
[2016-11-14] MEDS ORDERED: AMOX1TAB10 PO (12:47)
--- NOTE | 2016-11-14 13:58 | DS ---
DATE OF ADMISSION: 11/10/2016 DATE OF DISCHARGE: 11/14/2016 FINAL DIAGNOSES: 1. Chronic obstructive pulmonary disease (COPD) exacerbation: Improving. The patient will continue on BiPAP, home oxygen and nebulizers. She will also continue a course of antibiotics. 2. Congestive heart failure: Improved with intravenous Lasix. Continue Lasix as an outpatient 40 mg once daily. 3. Hypertension: Stable. Continue outpatient medications. 4. Diabetes mellitus with renal vascular disease: Stable. The patient's hemoglobin A1c is approximately 8.5. She is on Lantus, as well as metformin. This regimen is achieving good glucose control. 5. Tobacco abuse: Improved. Continue nicotine patch and the patient has been counseled to stop tobacco use. Especially that she has obstructive sleep apnea and chronic obstructive pulmonary disease (COPD). 6. Obstructive sleep apnea: Stable. Continue BiPAP at home. 7. Hyperlipidemia: Stable. Continue statin and low cholesterol diet. 8. Gastroesophageal reflux disease: Stable. Continue Protonix. HOSPITAL COURSE: The patient is a very pleasant, 61-year-old female, who was admitted by Dr. Crooks on 11/10/2016. The patient presented with shortness of breath and with her existing medical history of COPD, diabetes, hypertension, current tobacco use, she was extremely short of breath. She was transported to the hospital via 911 for her exertional dyspnea. She did have a productive cough and subjective fevers at home. This is exacerbated by her ongoing tobacco abuse. She has pain in her left lower quadrant of the abdomen as well. In the emergency department she had a fever to 102, and white count 20,000. She was placed on antibiotics and intravenous Solu-Medrol and sent to the telemetry unit for further evaluation and treatment. The patient improved with tapering doses of Solu-Medrol, nebulizer treatment and respiratory therapy. She also is on BiPAP at home and this helped improve her symptoms. Each day she improved with the work of breathing. At the time of discharge, her oxygen saturation was 93 percent on 2.5 L of oxygen. During her hospital stay she was satting at 92-100 percent. Oxygen was set at 4 L. I had a lengthy discussion with the patient and advised her that she does not need to keep her oxygen saturation at this high level. She should take her oxygen as prescribed and do not increase rate when she is at home. She verbalized understanding and stated she would comply. I also counseled the patient to stop smoking. She said that she would do her best. The patient also had a mild elevation of troponin 0.122. This subsequently decreased. Dr. Kan was consulted and did an echocardiogram which showed ejection fraction of 60 percent. Cardiovascularly she was stable and her mild elevation in troponin was attributed to her pneumonia, COPD and current state. She had no further chest pain and was ambulating with a walker at the time of discharge. The patient was sitting up, tolerating a diabetic diet and eager to go home. As stated above I had a lengthy conversation with the patient to be compliant with her diabetes and stated that she could improve her hemoglobin A1c by following her diet and seeing an insurance premium auditor. She stated that Dr. Cochran (primary care physician) has been managing her diabetes and she is willing to see an insurance premium auditor for evaluation to optimize her glucose control. DISCHARGE CONDITION: Stable. DISPOSITION: Discharged home with her daughter. DISCHARGE MEDICATIONS: 1. Augmentin 875 mg orally twice daily 2. Albuterol sulfate handheld nebulizer 1 neb every 6 hours. 3. Atrovent nebulizer 0.5 mg in 2.5 mL every 6 hours p.r.n. shortness of breath. 4. Amlodipine 5 mg once a day. 5. Benazepril 40 mg once daily. 6. Fenofibrate 160 mg once daily. 7. [place]-3 1 g twice daily. 8. Aspirin 81 mg once daily. 9. Paroxetine 20 mg once daily. 10. Lasix 40 mg once daily. 11. Hydrochlorothiazide 25 mg will be held. 12. Q-Ifeanyi 80 mg 2 puffs twice daily. 13. Fluconazole propionate spray 1 spray each nostril once daily. 14. Protonix 40 mg twice daily. 15. Lantus 30 mg subcutaneous twice daily. 16. Insulin lispro (Humalog) 18 units subcutaneous with meals. 17. Metformin 1 g twice daily. 18. Vitamin C 1 g once daily. 19. Multivitamin 1 g once daily. FOLLOWUP: The patient is to follow with Dr. Maria Cochran (PCP) in 1 week, as well as insurance premium auditor in 2-3 weeks for ongoing management of diabetes. Dictated By: Nav Junior MD /cain/susan /Document#: [id number] MTDD
[2016-11-14] MEDS ORDERED: VANCOMYCIN 1 GM in NS 250 ML IVPB SCH (23:00)
== END 2016-11-14 16:00 | disposition home or self-care (01) | DRG 871 ==
LOC: E/R 14:07 → MS4 16:42
PROVIDERS: ADMIT Hospitalist; ATTEND Internal Medicine
DX: A41.9 Sepsis, unspecified organism (principal); J18.9 Pneumonia, unspecified organism; J96.00 Acute respiratory failure, unspecified whether with hypoxia or hypercapnia; I50.33 Acute on chronic diastolic (congestive) heart failure; J44.0 Chronic obstructive pulmonary disease with (acute) lower respiratory infection; J44.1 Chronic obstructive pulmonary disease with (acute) exacerbation; I11.0 Hypertensive heart disease with heart failure; E11.9 Type 2 diabetes mellitus without complications; E78.5 Hyperlipidemia, unspecified; E66.01 Morbid (severe) obesity due to excess calories; G47.33 Obstructive sleep apnea (adult) (pediatric); K21.9 Gastro-esophageal reflux disease without esophagitis; F17.200 Nicotine dependence, unspecified, uncomplicated; Z79.82 Long term (current) use of aspirin; Z68.41 Body mass index [BMI] 40.0-44.9, adult
CPT/HCPCS: 36415; 36600; 71010; 74176; 80048; 80053; 80061; 80202; 81001; 82550; 82553; 82803; 82962; 83036; 83605; 83735; 83880; 84100; 84439; 84443; 84484; 85025; 85610; 85730; 87040; 87086; 93005; 93306; 94640; 94644; 94660; 94664; 96374; 96375; 97162; J1940; J0456; J0696; J1644; J1815; J2270; J2405; J2543; J2920; J2930; J3370; J3475; J7030; J7040; J7050

== ENCOUNTER 2017-03-27 11:32 | Inpatient (IN) | END 2017-03-29 01:58 | disposition EXP | DRG 190 ==